=== PATIENT | male | born 1955 | race Caucasian/White ===

== ENCOUNTER → 2016-04-09 | Outpatient (CLI) | payer OTHER ==
[~2016-04-09] MED LIST: ACET325T96 PO; APR50 PO; ASPI-435 PO; ASPI81TA28 PO; ATOR-22 PO; ATV/1 PO; ATV/2 PO; BACL1TAB PO; BISA10SU3 PR; CALC500C3 PO; CARB10TA5 PO; CARV12.52 PO; CARV25TA2 PO; CLON0.5T3 PO; CYCL10TA6 PO; CYM/30 PO; DOCU-94 PO; DULO60CA44 PO; DXM/4 PO; FURO-85 PO; GABA-113 PO; HYDR25TA4 PO; IPRASOL4 INH; LACO200T PO; LAMO200T35 PO; LAMO25TA PO; LEVE500T13 PO; LEVO-459 PO; LEVO25TA5 PO; LISI40TA PO; MAGNSUS5 PO; MENT4GEL TOP; MOML PO; NRN300 PO; ONDA4TAB46 PO; POTA10TA32 PO; QUET1TAB30 PO; QUET1TAB32 PO; QUET1TAB34 PO; SENN-65 PO; SENN8.6T94 PO; SODIENE PR; SYN25 PO; TAMS0.4C38 PO; TRAM-10 PO; WARF2TAB8 PO; WARF3TAB PO; WARF3TAB6 PO; WARF4TAB8 PO; WARF5TAB90 PO
[2016-04-09 09:22] LABS: INR 2.1 (0.9-1.1); PROTHROMBIN TIME (PATIENT) 22.8 SECONDS (9.0-12.0)
== END ==
LOC: C.LABUPBEA 08:43
PROVIDERS: ATTEND Family Medicine
DX: I63.50 Cerebral infarction due to unspecified occlusion or stenosis of unspecified cerebral artery (principal)

== ENCOUNTER → 2016-04-17 | Outpatient (CLI) | payer OTHER ==
[~2016-04-17] MED LIST changes: +CARB-157 PO; -CARB10TA5 PO; -DXM/4 PO; -LAMO200T35 PO; +LAMO200T38 PO; -LEVO-459 PO
[2016-04-17 10:11] LABS: INR 2.9 (0.9-1.1)
--- NOTE | 2016-04-18 09:57 | CODING QUERY NO DIAGNOSIS ---
TREATMENT RENDERED WITHOUT A DIAGNOSIS 53 To promote full compliance with coding requirements relating to patient care, physician participation is requested in all cases of icebox worker uncertainty. Please assist us with providing a diagnosis/symptom for the test(s) below: A diagnosis/symptom was not documented on your Order. A valid diagnosis/symptom is required to bill all insurances. Please remember that we are unable to code a diagnosis of rule out, probable, possible, questionable, or suspected. DOS 04/17/16 Tests that require a diagnosis: * PT/INR DIAGNOSIS: *ON YOUR ORDER YOU HAVE DX CODE I63.5, THAT IS AN INVALID CODE, PLEASE ADD CORRECT DX CODE Provider Signature: Date: Thank you Rema Miranda Health Information Management Once completed, please kindly fax back to [phone] For questions please call [phone]
== END ==
LOC: C.LABUPBEA 09:08
PROVIDERS: ATTEND Family Medicine
DX: I63.9 Cerebral infarction, unspecified (principal)

== ENCOUNTER → 2016-04-18 | Outpatient (CLI) | payer OTHER ==
[~2016-04-18] MED LIST changes: -CALC500C3 PO; -CARV25TA2 PO; -CYCL10TA6 PO; -CYM/30 PO; -GABA-113 PO; -IPRASOL4 INH; -LEVO25TA5 PO; -MENT4GEL TOP; -ONDA4TAB46 PO; -POTA10TA32 PO; -SENN8.6T94 PO
[2016-04-18 10:38] LABS: BLOOD UREA NITROGEN 15 mg/dl (7-18); BUN/CREATININE RATIO 9.9 (10-20); CALCIUM 8.7 mg/dl (8.5-10.1); CARBON DIOXIDE 32 mmol/L (21-32); CHLORIDE 100 mmol/L (98-107); GLUCOSE 91 mg/dl (70-99); MAGNESIUM 2.1 mg/dl (1.8-2.4); POTASSIUM 3.2 mmol/L (3.5-5.1); SODIUM 141 mmol/L (136-145)
== END ==
LOC: C.LABUPBEA 09:39
PROVIDERS: ATTEND Family Medicine
DX: I10 Essential (primary) hypertension (principal); G89.4 Chronic pain syndrome

== ENCOUNTER → 2016-04-27 | Outpatient (CLI) | payer OTHER ==
[~2016-04-27] MED LIST changes: +CALC500C3 PO; +CARV25TA2 PO; +CYCL10TA6 PO; +CYM/30 PO; +GABA-113 PO; +IPRASOL4 INH; +LEVO25TA5 PO; +MENT4GEL TOP; +ONDA4TAB46 PO; +POTA10TA32 PO; +SENN8.6T94 PO
[2016-04-27 08:57] LABS: INR 1.2 (0.9-1.1); PROTHROMBIN TIME (PATIENT) 12.6 SECONDS (9.0-12.0)
== END ==
LOC: C.LABUPBEA 08:12
PROVIDERS: ATTEND Family Medicine
DX: I63.50 Cerebral infarction due to unspecified occlusion or stenosis of unspecified cerebral artery (principal)

== ENCOUNTER → 2016-04-29 | Outpatient (CLI) | payer OTHER ==
[2016-04-29 09:06] LABS: INR 1.8 (0.9-1.1); PROTHROMBIN TIME (PATIENT) 20.2 SECONDS (9.0-12.0)
== END ==
LOC: C.LABUPBEA 12:46
PROVIDERS: ATTEND Family Medicine
DX: I63.50 Cerebral infarction due to unspecified occlusion or stenosis of unspecified cerebral artery (principal)

== ENCOUNTER → 2016-05-09 | Outpatient (CLI) | payer OTHER ==
[2016-05-09 08:29] LABS: INR 4.2 (0.9-1.1); PROTHROMBIN TIME (PATIENT) 47.2 SECONDS (9.0-12.0)
== END | disposition home or self-care (01) ==
LOC: C.LABUPBEA 08:00
PROVIDERS: ATTEND Family Medicine
DX: I63.50 Cerebral infarction due to unspecified occlusion or stenosis of unspecified cerebral artery (principal)

== ENCOUNTER 2016-05-11 20:42 | Observation (INO) | payer OTHER ==
[~2016-05-11] VITALS: Ht 165.1 cm; Wt 87.0 kg
[~2016-05-11 20:42] MED LIST changes: -ACET325T96 PO; -APR50 PO; -ASPI81TA28 PO; -ATOR-22 PO; -ATV/1 PO; -CALC500C3 PO; -CARB-157 PO; -CARV12.52 PO; -CARV25TA2 PO; -CLON0.5T3 PO; -CYCL10TA6 PO; -CYM/30 PO; -DOCU-94 PO; -DULO60CA44 PO; -FURO-85 PO; -GABA-113 PO; -HYDR25TA4 PO; -IPRASOL4 INH; -LACO200T PO; -LEVO25TA5 PO; -LISI40TA PO; -MAGNSUS5 PO; -MENT4GEL TOP; -MOML PO; -ONDA4TAB46 PO; -POTA10TA32 PO; -QUET1TAB30 PO; -QUET1TAB34 PO; -SENN-65 PO; -SENN8.6T94 PO; -TAMS0.4C38 PO; -TRAM-10 PO; -WARF2TAB8 PO; -WARF3TAB6 PO; -WARF5TAB90 PO
[2016-05-11] MEDS ORDERED: SODIUM CHLORIDE 0.9% 1000ML 1,000 ML IV SCH (20:56)
[2016-05-11] MEDS ORDERED: WARF5TAB90 PO (21:16)
[2016-05-11] MEDS ORDERED: QUET1TAB34 PO ×2 (21:20)
[2016-05-11 21:23] LABS: BASO % 0.6 %; BASO ABS # 0.03 K/uL (0-0.2); COMPLETE YES; EOS % 10.6 %; HEMATOCRIT 38.9 % (42-52); IG% 0.4 %; LYMPH % 25.9 %; LYMPH ABS # 1.36 K/uL (1.2-3.4); MEAN CELL VOLUME 92.8 fL (80-100); MEAN CORPUSCULAR HEMOGLOBIN 31.3 pg (25-34); MEAN CORPUSCULAR HGB CONC 33.7 g/dl (32-36); MEAN PLATELET VOLUME 10.2 fL (7.4-10.4); MONO % 12.5 %; PLATELET COUNT 246 K/uL (130-400); RED BLOOD COUNT 4.19 M/uL (4.7-6.1); WHITE BLOOD COUNT 5.26 K/uL (4.8-10.8)
[2016-05-11] MEDS ORDERED: ATV/1 PO ×2 (21:32)
[2016-05-11] MEDS ORDERED: MOML PO ×2 (21:32)
[2016-05-11] MEDS ORDERED: SODIENE PR ×2 (21:32)
[2016-05-11 21:47] LABS: INR 5.3 (0.9-1.1); PARTIAL THROMBOPLASTIN RATIO 2.4; PROTHROMBIN TIME (PATIENT) 60.5 SECONDS (9.0-12.0)
--- NOTE | 2016-05-11 21:50 | DIAGNOSTIC IMAGING REPORT ---
HEAD CT NONCONTRAST CT DOSE: 614.27 mGy.cm HISTORY: Mental status change Stroke TECHNIQUE: Multiaxial CT images of the head were performed without the use of intravenous contrast. Comparison: 02/27/2016 Findings: The paranasal sinuses and mastoid air cells are clear. Old right frontal infarct unchanged. Mild frontal atrophy unchanged. No acute intracranial hemorrhage. No midline shift. Mucous retention cysts of the right maxillary sinus. Impression: No acute intracranial abnormality. Old right frontal infarct. Electronically signed by: Peng Jim M.D. 05/11/2016 9:49 PM Dictated Date/Time: 05/11/2016 9:48 PM
[2016-05-11 22:11] LABS: BLOOD UREA NITROGEN 19 mg/dl (7-18); BUN/CREATININE RATIO 15.8 (10-20); CALCIUM 8.6 mg/dl (8.5-10.1); CARBON DIOXIDE 30 mmol/L (21-32); CHLORIDE 103 mmol/L (98-107); GLUCOSE 99 mg/dl (70-99); POTASSIUM 3.3 mmol/L (3.5-5.1); SODIUM 142 mmol/L (136-145)
[2016-05-11 22:14] LABS: CKMB/CK RATIO 0.7 (0-3.0)
[2016-05-11] MEDS ORDERED: FURO-85 PO ×2 (22:34)
[2016-05-11] MEDS ORDERED: MAGNSUS5 PO (22:36)
[2016-05-11] MEDS ORDERED: CARV12.52 PO ×2 (22:39)
[2016-05-11] MEDS ORDERED: SENN-65 PO ×2 (22:46)
--- NOTE | 2016-05-11 23:05 | DIAGNOSTIC IMAGING REPORT ---
CHEST ONE VIEW PORTABLE CLINICAL HISTORY: stroke mental status change COMPARISON STUDY: 02/27/2016 FINDINGS: Mild cardiomegaly. Mild congestive failure. Diaphragms are smooth. IMPRESSION: Mild congestive failure versus early pulmonary edema Electronically signed by: Peng Jim M.D. 05/11/2016 11:04 PM Dictated Date/Time: 05/11/2016 11:04 PM
[2016-05-11 23:16] LABS: URINE APPEARANCE CLEAR (CLEAR); URINE BILIRUBIN NEG (NEG); URINE COLOR YELLOW; URINE NITRITE NEG (NEG); URINE SPECIFIC GRAVITY 1.012 (1.000-1.030); UROBILINOGEN NEG (NEG); ZZURINE CULT IF INDIC CATH NO
[2016-05-11 23:24] LABS: BENZODIAZEPINE, URINE NEG (NEG); COCAINE,URINE NEG (NEG); PHENCYCLIDINE, URINE NEG (NEG)
[2016-05-11 23:35] LABS: MANUAL MICROSCOPIC REQUIRED? NO; REVIEW REQ? NO
[2016-05-12] VITALS (9 sets, daily range): BP systolic 129–169; BP diastolic 83–109; PULSE 56–72; TEMP 36.3–36.9; O2SAT 93–96; Ht 165.1 cm; Wt 87.0 kg
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
[2016-05-12] MEDS ORDERED: MoRPHine SULFATE 2 MG/ML CARP IV PRN (00:15)
[2016-05-12] MEDS ORDERED: POLYETHYLENE (MIRALAX) 17 GM PACK PO PRN (00:15)
[2016-05-12] MEDS ORDERED: MAGNESIUM HYDROXIDE SUSP 30 ML UDC PO PRN (00:15)
[2016-05-12] MEDS ORDERED: PHARMACIST DISCHARGE MED REC CONSULT PRN (00:15)
[2016-05-12] MEDS ORDERED: ONDANSETRON INJ 2 MG/ML 2 ML VIAL IV PRN (00:15)
[2016-05-12] MEDS ORDERED: ACETAMINOPHEN 325 MG TAB PO PRN (00:15)
[2016-05-12] MEDS ORDERED: ALUMINUM/MAGNESIUM/SIMETH (MAALOX MAX) 30 ML UDC PO PRN (00:15)
[2016-05-12] MEDS ORDERED: LORAZEPAM 1 MG TAB PO PRN (00:30)
--- NOTE | 2016-05-12 00:44 | EMERGENCY ROOM VISIT NOTE ---
History Report prepared by Carmen: Phong Carmona Under the Supervision of: Dr. Marci Humphries D.O. First contact with patient: 20:47 Chief Complaint: STROKE SYMPTOMS Stated Complaint: STROKE SX History of Present Illness The patient is a 60 year old male who presents to the Emergency Room after experiencing stroke-like symptoms. The patient states that he began to lose strength in his right arm at 1130 this morning, 9.5 hours prior to arrival. A few hours later, at 1300, the patient began to lose strength in his right leg as well. The patient was brought to the Emergency Department from [facility] via EMS. The staff at [facility] state that his symptoms just started 45 minutes ago. He has a history of stroke, and his previous stroke did affect his right side. The patient is on Coumadin as a blood thinner. He denies headache, change in vision, fevers, chest pain, shortness of breath, nausea, vomiting, diarrhea, pain with urination, and melena. Source of History: patient, [facility] notes Onset: 9.5 hours CHECK TOTALER Position: arm (right), leg (right) Quality: other (Weakeness) Associated Symptoms: No abdominal pain, No nausea, No vomiting Review of Systems See HPI for pertinent positives & negatives. A total of 10 systems reviewed and were otherwise negative. Past Medical & Surgical Medical Problems: (1) Altered mental status (2) Altered mental status (3) No Known Active Medical Problems (4) Pain of right side of body (5) Right arm weakness Family History Patient reports no known family medical history. Social History Smoking Status: Unknown if Ever Smoked Alcohol Use: occasionally Drug Use: marijuana Housing Status: [facility] Occupation Status: retired Current/Historical Medications Scheduled Aspirin (Aspirin 81), 325 MG PO DAILY Atorvastatin (Lipitor), 20 MG PO HS Bisacodyl (Dulcolax), 1 SUPP NV PRN UD Carbidopa/Levodopa (Sinemet 10MG/100MG), 1 TAB PO Q6H Carvedilol (Coreg), 12.5 MG PO Q12 Clonazepam (Klonopin), 0.5 MG PO HS Docusate Sodium (Colace), 1 CAP PO BID Duloxetine Hcl (Cymbalta), 60 MG PO BID Furosemide (Lasix), 20 MG PO DAILY Gabapentin (Gabapentin), 300 MG PO TID Hydralazine HCl (Hydralazine HCl), 50 MG PO QID Hydrochlorothiazide (Hctz), 25 MG PO DAILY Lacosamide (Vimpat), 200 MG PO BID Lamotrigine (Lamictal), 25 MG PO BID Lamotrigine (Lamictal), 200 MG PO BID Levetiracetam (Keppra), 500 MG PO BID Levothyroxine Sodium (Synthroid), 25 MCG PO DAILYBB Lisinopril (Zestril), 40 MG PO DAILY Magnesium Hydroxide (Milk Of Magnesia), 30 ML PO PRN UD Quetiapine Fumarate (Seroquel), 100 MG PO HS Quetiapine Fumarate (Seroquel), 25 MG PO BID Sennosides-Docusate Sodium (Senokot S), 2 TABS PO HS Tamsulosin Hcl (Flomax), 0.4 MG PO DAILY Warfarin Sodium (Coumadin), 5 MG PO HS Scheduled PRN Acetaminophen Tab (Tylenol), 650 MG PO Q6H PRN for Pain or Fever Lorazepam (Ativan), 1 MG PO Q8 PRN for Anxiety Sodium Phosphate/Biphosphate (Fleet Enema), 1 EA NV DAILY PRN for PER BOWEL PROTOCOL Allergies Coded Allergies: Hydromorphone (Verified Allergy, Unknown, Unknown, 02/27/16) Penicillins (Unverified Allergy, Unknown, UNKNOWN, 02/27/16) Aspirin (Unverified Adverse Reaction, Unknown, NAUSEA, 02/27/16) Physical Exam Vital Signs Date Time Temp Pulse Resp B/P Pulse Ox O2 Delivery O2 Flow Rate FiO2 05/11/16 23:56 65 16 141/91 95 Room Air 05/11/16 22:42 61 10 95 05/11/16 22:41 111/71 05/11/16 22:35 88/58 05/11/16 22:28 86/58 05/11/16 22:12 62 15 90 05/11/16 21:58 96/64 05/11/16 21:42 63 16 91 05/11/16 21:31 113/80 05/11/16 21:12 65 14 93 05/11/16 21:00 94 05/11/16 20:57 62 05/11/16 20:45 36.7 62 23 159/108 95 Room Air 05/11/16 20:43 159/108 Physical Exam GENERAL: Laying in bed, disheveled and non-toxic. EYE EXAM: normal conjunctiva, PERRL and EOM's intact OROPHARYNX: Poor dentition. No exudate, no erythema, lips, buccal mucosa, and tongue normal and mucous membranes are moist NECK: supple, no nuchal rigidity, no adenopathy, non-tender LUNGS: Clear to auscultation. Normal chest wall mechanics HEART: no murmurs, S1 normal and S2 normal ABDOMEN: abdomen soft, non-tender, normo-active bowel sounds, no masses, no rebound or guarding. BACK: Back is symmetrical on inspection and there is no deformity, no midline tenderness, no CVA tenderness. SKIN: no rashes and no bruising UPPER EXTREMITIES: upper extremities are grossly normal. LOWER EXTREMITIES: No pitting edema. NEURO EXAM: Patient is alert and oriented to person place, but not date. Flexion/extension of the left upper shoulder, wrist, and elbow are intact. 5/5 strength in right upper extremity. Unable to hold arm above her head, but able to flex and extend right elbow slightly. Right hand with contracture. Right lower extremity able to uncross legs with positive withdraw slightly to pain. Left lower extremity flexion/extension in the hip, knee, and ankle intact. Normal sensorium, cranial nerves II-XII grossly intact, normal speech. Medical Decision & Procedures ER Provider Diagnostic Interpretation: Xray results per the radiologist and my interpretation. Other results have been interpreted by the radiologist and reviewed by me. CHEST ONE VIEW PORTABLE CLINICAL HISTORY: stroke mental status change COMPARISON STUDY: 02/27/2016 FINDINGS: Mild cardiomegaly. Mild congestive failure. Diaphragms are smooth. IMPRESSION: Mild congestive failure versus early pulmonary edema Electronically signed by: Peng Jim M.D. 05/11/2016 11:04 PM Dictated Date/Time: 05/11/2016 11:[address] NONCONTRAST CT DOSE: 614.27 mGy.cm HISTORY: Mental status change Stroke TECHNIQUE: Multiaxial CT images of the head were performed without the use of intravenous contrast. Comparison: 02/27/2016 Findings: The paranasal sinuses and mastoid air cells are clear. Old right frontal infarct unchanged. Mild frontal atrophy unchanged. No acute intracranial hemorrhage. No midline shift. Mucous retention cysts of the right maxillary sinus. Impression: No acute intracranial abnormality. Old right frontal infarct. Electronically signed by: Peng Jim M.D. 05/11/2016 9:49 PM Dictated Date/Time: 05/11/2016 9:48 PM Laboratory Results 05/11/16 21:10 Red Blood Count 4.19, Mean Corpuscular Volume 92.8, Mean Corpuscular Hemoglobin 31.3, Mean Corpuscular Hemoglobin Concent 33.7, Mean Platelet Volume 10.2, Neutrophils (%) (Auto) 50.0, Lymphocytes (%) (Auto) 25.9, Monocytes (%) (Auto) 12.5, Eosinophils (%) (Auto) 10.6, Basophils (%) (Auto) 0.6, Neutrophils # (Auto ) 2.63, Lymphocytes # (Auto) 1.36, Monocytes # (Auto) 0.66, Eosinophils # (Auto ) 0.56, Basophils # (Auto) 0.03 05/11/16 21:10 Test 05/11/16 00:00 05/11/16 21:04 05/11/16 21:10 Urine Color YELLOW Urine Appearance CLEAR (CLEAR) Urine pH 7.0 (4.5-7.5) Urine Specific [place] 1.012 (1.000-1.030) Urine Protein NEG (NEG) Urine Glucose (UA) NEG (NEG) Urine Ketones NEG (NEG) Urine Occult Blood NEG (NEG) Urine Nitrite NEG (NEG) Urine Bilirubin NEG (NEG) Urine Urobilinogen NEG (NEG) Urine Leukocyte Esterase TRACE (NEG) Urine WBC (Auto) 1-5 /hpf (0-5) Urine RBC (Auto) 0-4 /hpf (0-4) Urine Hyaline Casts (Auto) 1-5 /lpf (0-5) Urine Epithelial Cells (Auto) 5-10 /lpf (0-5) Urine Bacteria (Auto) NEG (NEG) Urine Opiates Screen NEG (NEG) Urine Methadone, Qualitative NEG (NEG) Urine Barbiturates NEG (NEG) Urine Phencyclidine (PCP) Level NEG (NEG) Ur Amphetamine/Methamphetamine NEG (NEG) MDMA (Ecstasy) Screen NEG (NEG) Urine Benzodiazepines Screen NEG (NEG) Urine Cocaine Metabolite NEG (NEG) Urine Marijuana (THC) NEG (NEG) Bedside Glucose 97 mg/dl (70-99) White Blood Count 5.26 K/uL (4.8-10.8) Red Blood Count 4.19 M/uL (4.7-6.1) Hemoglobin 13.1 g/dL (14.0-18.0) Hematocrit 38.9 % (42-52) Mean Corpuscular Volume 92.8 fL (80-100) Mean Corpuscular Hemoglobin 31.3 pg (25-34) Mean Corpuscular Hemoglobin Concent 33.7 g/dl (32-36) Platelet Count 246 K/uL (130-400) Mean Platelet Volume 10.2 fL (7.4-10.4) Neutrophils (%) (Auto) 50.0 % Lymphocytes (%) (Auto) 25.9 % Monocytes (%) (Auto) 12.5 % Eosinophils (%) (Auto) 10.6 % Basophils (%) (Auto) 0.6 % Neutrophils # (Auto) 2.63 K/uL (1.4-6.5) Lymphocytes # (Auto) 1.36 K/uL (1.2-3.4) Monocytes # (Auto) 0.66 K/uL (0.11-0.59) Eosinophils # (Auto) 0.56 K/uL (0-0.5) Basophils # (Auto) 0.03 K/uL (0-0.2) RDW Standard Deviation 51.9 fL (36.4-46.3) RDW Coefficient of Variation 15.2 % (11.5-14.5) Immature Granulocyte % (Auto) 0.4 % Immature Granulocyte # (Auto) 0.02 K/uL (0.00-0.02) Prothrombin Time 60.5 SECONDS (9.0-12.0) Prothromb Time International Ratio 5.3 (0.9-1.1) Activated Partial Thromboplast Time 62.9 SECONDS (21.0-31.0) Partial Thromboplastin Ratio 2.4 Anion Gap 9.0 mmol/L (3-11) Est Creatinine Clear Calc Drug Dose 66.0 ml/min Estimated GFR () 74.7 Estimated GFR (Non- 64.4 BUN/Creatinine Ratio 15.8 (10-20) Calcium Level 8.6 mg/dl (8.5-10.1) Total Creatine Kinase 106 U/L (39-308) Creatine Kinase MB 0.7 ng/ml (0.5-3.6) Creatine Kinase MB Ratio 0.7 (0-3.0) Troponin I < 0.015 ng/ml (0-0.045) Laboratory results per my review. Medications Administered Medications (Trade) Dose Ordered Sig/Dede Route Start Time Stop Time Status Last Admin Dose Admin Sodium Chloride (Nss 1000ml) 1,000 ml @ 50 mls/hr Q20H IV 05/11/16 20:56 06/10/16 20:55 05/11/16 21:22 50 MLS/HR ECG Indication: altered mental status Rate (beats per minute): 63 Rhythm: normal sinus Findings: no ectopy, other (Normal [place]) ED Course ED COURSE: Vital signs were reviewed and showed Hypertensive The patients medical record was reviewed The above diagnostic studies were performed and reviewed. ED treatments and interventions as stated above. 2049: The patient was evaluated in room A3. A complete history and physical examination was performed. 2055: Ordered Sodium Chloride 1000 mL @ 50 mL/hr IV. 2145: I discussed the case with Dr. Herrera, he states that the patient is not a candidate for further neurologic therapy at this time. 2235: I discussed the case with Dr. Sutherland at this time, he will evaluate the patient for further treatment. 2244: I updated the patient at this time, his systolic blood pressure was in the 110's 2246: Upon reevaluation, the patient is agreeable to admission.I discussed my findings with the patient and he understands and agrees with the treatment plan. Based on the patients age, coexisting illnesses, exam and lab findings the decision to treat as an inpatient was made. The patient remained stable while under my care. The patient will be evaluated for further management. Medical Decision Differential diagnosis: Etiologies such as metabolic, infection, hypo/hyperglycemia, electrolyte abnormalities, cardiac sources, intracerebral event, toxicologic, neurologic, as well as others were entertained. Patient is a 60-year-old male who presents to the ER for possible stroke. He notes that his symptoms started around 11:30. Since then he has been unable to move his right upper extremity abd right lower extremity. He does have a history of previous strokes. Patient is taking Coumadin. On exam he does have an obvious deficit of his right upper and right lower extremity. He clearly states that this started around lunchtime. He notes that he can't move his right lower extremity but when his legs are crossed is able to uncross them. He does withdrawal to pain. CT head was negative. Labs show no significant leukocytosis or anemia. BMP along with troponin was negative. UA and tox was negative. INR was supratherapeutic at 5.3. Chest x-ray was unremarkable. Discussed the case with [facility] and they note that he is not a candidate for any intervention. Discussed case with internal medicine and was admitted for possible stroke. Consults Time Called: 2139 Consulting Physician: Dr. Herrera Returned Call: [phone] I discussed the case with Dr. Herrera, he states that the patient is not a candidate for further neurologic therapy at this time. Additional Consults: Time Called: [id number] Consulted Physician: Dr. Sutherland - [facility] [facility] Returned Call: [phone] Additional Comments: I discussed the case with Dr. Sutherland at this time, he will evaluate the patient for further treatment. Impression Primary Impression: Stroke Additional Impression: Hypokalemia Scribe Attestation The scribe's documentation has been prepared under my direction and personally reviewed by me in its entirety. I confirm that the note above accurately reflects all work, treatment, procedures, and medical decision making performed by me. Departure Information Dispostion Being Evaluated By Hospitalist Referrals Nadia Bowles (PCP) Patient Instructions My [facility] Problem Qualifiers Primary Impression: Stroke CVA mechanism: unspecified Qualified Codes: I63.9 - Cerebral infarction, unspecified
[2016-05-12] MEDS ORDERED: IV FLUIDS COMPLETED PRN (00:45)
[2016-05-12] MEDS: CARBIDOPA/LEVODOPA 10/100MG TAB PO SCH ×4 (04:58→23:39)
[2016-05-12] MEDS: LEVOTHYROXINE 25 MCG TAB PO SCH (04:58)
[2016-05-12] MEDS: D5NSS + 20MEQ KCL 1,000 ML IV SCH ×2 (04:59→11:49)
[2016-05-12 08:47] LABS: BASO % 0.5 %; BASO ABS # 0.03 K/uL (0-0.2); COMPLETE YES; EOS % 8.6 %; HEMATOCRIT 36.3 % (42-52); IG% 0.2 %; LYMPH % 17.6 %; LYMPH ABS # 1.12 K/uL (1.2-3.4); MEAN CELL VOLUME 91.9 fL (80-100); MEAN CORPUSCULAR HEMOGLOBIN 31.1 pg (25-34); MEAN CORPUSCULAR HGB CONC 33.9 g/dl (32-36); MEAN PLATELET VOLUME 9.7 fL (7.4-10.4); MONO % 7.9 %; NEUT % 65.2 %; PLATELET COUNT 225 K/uL (130-400); RED BLOOD COUNT 3.95 M/uL (4.7-6.1); WHITE BLOOD COUNT 6.36 K/uL (4.8-10.8)
[2016-05-12] MEDS: QUETIAPINE FUMARATE 25 MG TAB PO SCH ×2 (09:00→14:05)
[2016-05-12] MEDS: GABAPENTIN 300 MG CAP PO SCH ×3 (09:00→20:43)
[2016-05-12 09:22] LABS: BUN/CREATININE RATIO 12.7 (10-20); CALCIUM 8.1 mg/dl (8.5-10.1); CREATININE 1.2 mg/dl (0.60-1.40); MAGNESIUM 1.9 mg/dl (1.8-2.4); POTASSIUM 3.3 mmol/L (3.5-5.1)
--- NOTE | 2016-05-12 10:05 | DIAGNOSTIC IMAGING REPORT ---
Brain MRI WITHOUT CONTRAST HISTORY: Mental status change Stroke TECHNIQUE: Multiplanar multisequence MRI of the brain was performed without the use of contrast. COMPARISON STUDY: 02/28/2016 FINDINGS: There are no areas of restricted diffusion to suggest acute infarction. The midline structures are intact. The paranasal sinuses are clear. The mastoid air cells are clear. The ventricles and sulci are within normal limits for age. There is no mass, hematoma, midline shift. The major vascular flow-voids at the skull base are well maintained. Old frontal infarct. Mild chronic small vessel change. IMPRESSION: 1. No acute intracranial abnormality. 2. Old right frontal infarct. 3. Stable moderate chronic small vessel change. Electronically signed by: Peng Jim M.D. 05/12/2016 10:03 AM Dictated Date/Time: 05/12/2016 10:02 AM
[2016-05-12] MEDS ORDERED: POTASSIUM CHLORIDE 10 MEQ TABCR PO ONE (11:00)
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
[2016-05-12] MEDS: LEVETIRACETAM 500 MG TAB PO SCH ×2 (11:51→20:39)
[2016-05-12] MEDS: ASPIRIN 325 MG ECTAB PO SCH (11:52)
[2016-05-12] MEDS: TAMSULOSIN HCL 0.4 MG CAP PO SCH (11:52)
[2016-05-12] MEDS: LISINOPRIL 40 MG TAB PO SCH (11:52)
[2016-05-12] MEDS: DOCUSATE SODIUM 100 MG CAP PO SCH ×2 (11:53→20:37)
[2016-05-12] MEDS: FUROSEMIDE 20 MG TAB PO SCH (11:53)
[2016-05-12] MEDS: CARVEDILOL 12.5 MG TAB PO SCH ×2 (11:53→20:38)
[2016-05-12] MEDS: DULOXETINE HCL 60 MG CAP PO SCH ×2 (11:53→20:39)
[2016-05-12] MEDS: HYDROCHLOROTHIAZIDE 25 MG TAB PO SCH (11:53)
[2016-05-12] MEDS: LACOSAMIDE 50 MG TAB PO SCH ×2 (11:54→20:45)
--- NOTE | 2016-05-12 12:25 | Progress Note ---
Subjective Date of Service: May 12, 2016. Subjective Pt evaluation today including: conversation w/ patient, physical exam, chart review, lab review, review of studies, conversation w/ sap bw consultant, review of inpatient medication list Voiding: no voiding problems Reported the right arm pain, is not new, 6 out of 10 now, want to get to pain medications such as Dilaudid or marijuana for the pain, report don't want to eat lunch for now and want to go sleep, right side paralyzed and weakness is not new, Problem List Medical Problems: (1) Change in mental status Status: Acute (2) CVA (cerebral vascular accident) Status: Acute (3) Dehydration Status: Acute (4) Hand laceration Status: Acute (5) Headache Status: Acute (6) Hypokalemia Status: Acute (7) Idiopathic ischemic cerebrovascular accident (CVA) in adult Status: Acute (8) Pneumonia Status: Acute (9) Stroke Status: Acute Review of Systems Constitutional: + fatigue, + weakness, No chills, No fever, No weight loss Eyes: No worsening of vision ENT: No hearing loss Respiratory: No cough, No dyspnea at rest, No dyspnea on exertion, No hemoptysis, No problem reported, No see HPI, No shortness of breath, No sputum, No wheezing Cardiac: No PND, No chest pain, No claudication, No edema, No orthopnea, No palpitations, No problem reported, No see HPI Musculoskeletal: + joint pain, + muscle pain Male : No dysuria, No hematuria, No incontinence, No nocturia more than once/ night, No problem reported, No see HPI, No sexual dysfunction, No slowing stream , No urinary frequency Neurologic: + paralysis (right side paralyzed is not new) Psychiatric: No anhedonism, No anxiety, No depression symptoms, No insomnia, No problem reported, No see HPI, No substance abuse Skin: No bleeding, No color change, No itch, No new/changing skin lesions, No problem reported, No rash, No see HPI Objective Vital Signs Date Time Temp Pulse Resp B/P Pulse Ox O2 Delivery O2 Flow Rate FiO2 05/12/16 11:41 36.4 63 22 150/86 95 Room Air 05/12/16 08:10 94 Room Air 05/12/16 08:10 Room Air 05/12/16 07:19 36.9 61 18 136/85 94 05/12/16 04:00 96 Room Air 05/12/16 02:03 36.3 56 18 157/90 96 Room Air 05/12/16 01:20 69 16 114/64 96 05/12/16 00:53 69 16 114/64 96 Room Air 05/11/16 23:56 65 16 141/91 95 Room Air 05/11/16 22:42 61 10 95 05/11/16 22:41 111/71 05/11/16 22:35 88/58 05/11/16 22:28 86/58 05/11/16 22:12 62 15 90 05/11/16 21:58 96/64 05/11/16 21:42 63 16 91 05/11/16 21:31 113/80 05/11/16 21:12 65 14 93 05/11/16 21:00 94 05/11/16 20:57 62 05/11/16 20:45 36.7 62 23 159/108 95 Room Air 05/11/16 20:43 159/108 Physical Exam General Appearance: WD/WN, no apparent distress, + pertinent finding (chronic ill-looking, look older than his age, no acute distress) Eyes: normal inspection, PERRL, EOMI, sclerae normal ENT: normal ENT inspection, hearing grossly normal, pharynx normal Neck: supple, no adenopathy, thyroid normal, no JVD, no carotid bruits, trachea midline Respiratory/Chest: chest non-tender, normal breath sounds, no respiratory distress, no accessory muscle use, + decreased breath sounds Cardiovascular: regular rate, rhythm, no edema, no gallop, no JVD, no murmur Abdomen: normal bowel sounds, non tender, soft, no organomegaly, no pulsatile mass Extremities: normal inspection, no pedal edema, no calf tenderness, normal capillary refill, pelvis stable, + pertinent finding (right radial pulse 2+, right arm has no obvious swelling, no call mild tender, no color changes) Neurologic/Psychiatric: picture enlarger II-XII nml as tested, no motor/sensory deficits, + motor weakness (right side paralyzed, is not new low other extremities in left size) Skin: normal color, warm/dry, no rash Lymphatic: no adenopathy Laboratory Results Last 24 Hours Test 05/11/16 21:04 05/11/16 21:10 05/12/16 08:35 2/4/17 12:03 Bedside Glucose 97 mg/dl White Blood Count 5.26 K/uL 6.36 K/uL Red Blood Count 4.19 M/uL 3.95 M/uL Hemoglobin 13.1 g/dL 12.3 g/dL Hematocrit 38.9 % 36.3 % Mean Corpuscular Volume 92.8 fL 91.9 fL Mean Corpuscular Hemoglobin 31.3 pg 31.1 pg Mean Corpuscular Hemoglobin Concent 33.7 g/dl 33.9 g/dl Platelet Count 246 K/uL 225 K/uL Mean Platelet Volume 10.2 fL 9.7 fL Neutrophils (%) (Auto) 50.0 % 65.2 % Lymphocytes (%) (Auto) 25.9 % 17.6 % Monocytes (%) (Auto) 12.5 % 7.9 % Eosinophils (%) (Auto) 10.6 % 8.6 % Basophils (%) (Auto) 0.6 % 0.5 % Neutrophils # (Auto) 2.63 K/uL 4.15 K/uL Lymphocytes # (Auto) 1.36 K/uL 1.12 K/uL Monocytes # (Auto) 0.66 K/uL 0.50 K/uL Eosinophils # (Auto) 0.56 K/uL 0.55 K/uL Basophils # (Auto) 0.03 K/uL 0.03 K/uL RDW Standard Deviation 51.9 fL 50.9 fL RDW Coefficient of Variation 15.2 % 15.0 % Immature Granulocyte % (Auto) 0.4 % 0.2 % Immature Granulocyte # (Auto) 0.02 K/uL 0.01 K/uL Prothrombin Time 60.5 SECONDS Prothromb Time International Ratio 5.3 Activated Partial Thromboplast Time 62.9 SECONDS Partial Thromboplastin Ratio 2.4 Sodium Level 142 mmol/L 143 mmol/L Potassium Level 3.3 mmol/L 3.3 mmol/L Chloride Level 103 mmol/L 107 mmol/L Carbon Dioxide Level 30 mmol/L 28 mmol/L Anion Gap 9.0 mmol/L 8.0 mmol/L Blood Urea Nitrogen 19 mg/dl 15 mg/dl Creatinine 1.20 mg/dl 1.20 mg/dl Est Creatinine Clear Calc Drug Dose 66.0 ml/min 65.2 ml/min Estimated GFR () 74.7 74.7 Estimated GFR (Non- 64.4 64.4 BUN/Creatinine Ratio 15.8 12.7 Random Glucose 99 mg/dl 89 mg/dl Calcium Level 8.6 mg/dl 8.1 mg/dl Total Creatine Kinase 106 U/L Creatine Kinase MB 0.7 ng/ml Creatine Kinase MB Ratio 0.7 Troponin I < 0.015 ng/ml Hepatitis C Antibody Screen NEG Magnesium Level 1.9 mg/dl Assessment and Plan 60-year-old male with new focal deficits R sided weakness prior to admission, on May 11 2016 Now he complaining about right arm pain hx of of CVA with right hemiparesis, worsening R sided weakness prior to admission? I feel right sided weakness is in baseline per examination now Brain MRI has no acute CVA I don't believe he has acute CVA No recent cholesterol check, lab ordered for tomorrow morning continue current care, cont ASA and a Statin, we'll adjusted statin level if needed Right arm pain, chronic, there is no color changes no swelling Pulse was positive I don't believe we need to check Doppler ultrasound for venous thrombosis or artery disease for now PT OT evaluation and treatment, check total CK level hx of non-convulsive seizures, dementia, 2 recent admissions for encephalopathy related to infection and seizures. , Follow-up Lamictal level supratherapeutic INR, Hold Coumadin continue follow-up PT/INR HTN - pt is mildly hypotensive on admission, this morning was high, has restarted home blood pressure medicine CKD 2 - creatinine is at baseline - mild hypokalemia corrected History of DVTs - INR is therapeutic at 5.4 , will follow-up PT OT evaluation and treatment, planning to discharge back to group home tomorrow DNR/DNI - Coumadin prophylaxis 24 minutes Continued [facility] stay due to: home environment unsafe for pt Discharge planning: retirement facility
[2016-05-12] MEDS ORDERED: ATORVASTATIN 20 MG TAB PO SCH (21:00)
[2016-05-12] MEDS ORDERED: DOCUSATE SODIUM/SENNA 50/8.6MG TAB PO SCH (21:00)
[2016-05-12] MEDS ORDERED: CLONAZEPAM 0.5 MG TAB PO SCH (21:00)
[2016-05-12] MEDS ORDERED: QUETIAPINE FUMARATE 100 MG TAB PO SCH (21:00)
[2016-05-12] MEDS ORDERED: ATORVASTATIN 40 MG TAB PO SCH (21:00)
[2016-05-13] VITALS (8 sets, daily range): BP systolic 128–163; BP diastolic 83–101; PULSE 62–72; TEMP 36.6–36.7; O2SAT 91–94
[2016-05-13] MEDS: CARBIDOPA/LEVODOPA 10/100MG TAB PO SCH ×2 (05:37→11:26)
[2016-05-13] MEDS: LEVOTHYROXINE 25 MCG TAB PO SCH (05:38)
[2016-05-13 06:18] LABS: BASO % 0.7 %; BASO ABS # 0.04 K/uL (0-0.2); COMPLETE YES; EOS % 8.5 %; HEMATOCRIT 36.1 % (42-52); IG% 0.2 %; LYMPH % 24.6 %; LYMPH ABS # 1.48 K/uL (1.2-3.4); MEAN CELL VOLUME 92.1 fL (80-100); MEAN CORPUSCULAR HEMOGLOBIN 30.9 pg (25-34); MEAN CORPUSCULAR HGB CONC 33.5 g/dl (32-36); MEAN PLATELET VOLUME 10.1 fL (7.4-10.4); MONO % 9.3 %; NEUT % 56.7 %; PLATELET COUNT 227 K/uL (130-400); RED BLOOD COUNT 3.92 M/uL (4.7-6.1); WHITE BLOOD COUNT 6.01 K/uL (4.8-10.8)
[2016-05-13 06:45] LABS: CALCIUM 8.1 mg/dl (8.5-10.1); CREATININE 1.3 mg/dl (0.60-1.40)
[2016-05-13 06:48] LABS: CHOLESTEROL/HDL RATIO 3.7
[2016-05-13] MEDS ORDERED: POTASSIUM CHLORIDE 10 MEQ TABCR PO STA (07:05)
[2016-05-13 07:47] LABS: INR 5.1 (0.9-1.1); PROTHROMBIN TIME (PATIENT) 58.5 SECONDS (9.0-12.0)
[2016-05-13] MEDS: POTASSIUM CHLR 10 MEQ / WTR 10 MEQ in PREMIXED WATER 100 ML IV SCH ×3 (08:30→08:48)
[2016-05-13] MEDS: LISINOPRIL 40 MG TAB PO SCH (08:38)
[2016-05-13] MEDS: QUETIAPINE FUMARATE 25 MG TAB PO SCH (08:38)
[2016-05-13] MEDS: LEVETIRACETAM 500 MG TAB PO SCH (08:39)
[2016-05-13] MEDS: DOCUSATE SODIUM 100 MG CAP PO SCH (08:39)
[2016-05-13] MEDS: FUROSEMIDE 20 MG TAB PO SCH (08:39)
[2016-05-13] MEDS: HYDROCHLOROTHIAZIDE 25 MG TAB PO SCH (08:40)
[2016-05-13] MEDS: GABAPENTIN 300 MG CAP PO SCH (08:40)
[2016-05-13] MEDS: ASPIRIN 325 MG ECTAB PO SCH (08:41)
[2016-05-13] MEDS: DULOXETINE HCL 60 MG CAP PO SCH (08:42)
[2016-05-13] MEDS: CARVEDILOL 12.5 MG TAB PO SCH (08:42)
[2016-05-13] MEDS: LACOSAMIDE 50 MG TAB PO SCH (08:43)
[2016-05-13] MEDS: TAMSULOSIN HCL 0.4 MG CAP PO SCH (08:44)
--- NOTE | 2016-05-13 12:08 | Discharge Instructions ---
Discharge Instructions Admission Reason for Admission: Right Arm Weakness Discharge Discharge Diagnosis / Problem: right arm pain, chronic, has rule out acute CVA Discharge Goals Goal(s): Decrease discomfort, Improve function, Learn about illness Activity Recommendations Activity Level: Up Ad Rufina Therapies: Physical Therapy, Occupational Therapy Lifting Limitations: none Exercise/Sports Limitations: none . Additional Information Patient informed of condition: Yes Advance Directives: Yes DNR: Yes Level of Care: Skilled Communicable Disease: No Prognosis: Stable Oxygen at (LPM): no Singh Catheter: No Instructions / Follow-Up Instructions / Follow-Up you have new possible Right sided weakness prior to admission, on May 11 2016 you have history of of CVA with right hemiparesis, Brain MRI was done , has no acute CVA you have right arm pain, which is chronic, you have the pain before, I recommend Tylenol as needed for pain you ahve supratherapeutic INR, today is 5.1, you need to stop coumadin, check PT/INR on Saturday, and RN to call MD to restart coumadin you potassium is low, you need to be on potassium rich diet - you need to follow up with your primary care physician in 1 week, - take medication as instructed, never overdose or any misuse, or take with alcohol, because misuse of medicine may cause organ damage or , call your primary care physician if have questions of medicaitons. - call your primary care physician OR go to local emergency room if has any fever/chill, chest pain, shortness of breathing, nausea/vomiting/abdominal pain , facial droop/slurry speech/local weakness, or if has any questions. - fall precaution - diet as instructed - you should understand that it is important to follow up the above instruction , and "not following the above instruction" may cause delayed or missed care of your medical conditions which may cause permanent organ damage and even . Current Hospital Diet Patient's current hospital diet: AHA Diet (Heart Healthy) Discharge Diet Recommended Diet: AHA Diet (Heart Healthy) Pending Studies Studies pending at discharge: no Physician Orders On Transfer POLST Discussion: without POLST completion Laboratory Results Lipid Panel Test 05/13/16 05:45 Range/Units Triglycerides Level 227 H 0-150 mg/dl Cholesterol Level 166 0-200 mg/dl HDL Cholesterol 45 mg/dl Cholesterol/HDL Ratio 3.7 LDL Cholesterol, Calculated 76 mg/dl Medical Emergencies . Who to Call and When: Medical Emergencies: If at any time you feel your situation is an emergency, please call 911 immediately. . Non-Emergent Contact Non-Emergency issues call your: Primary Care Provider . . "Provider Documentation" section prepared by Jayant Jackson. Core Measure Problem Core Measures: None
[2016-05-13] MEDS ORDERED: POTASSIUM CHLORIDE PWD 20 MEQ PACK PO STA (12:09)
--- NOTE | 2016-05-13 12:23 | Discharge Summary ---
Discharge Summary Admission Date: May 12, 2016 at 00:17 Discharge Date: May 13, 2016 [facility] Principal Diagnosis: right sided weakness prior to admission, has rule out CVA Problems/Secondary Diagnoses: history of of CVA with right hemiparesis, right arm pain, which is chronic, supratherapeutic INR, today is 5.1, Consultations: Neurologist Medication Reconciliation Continued Medications: Acetaminophen Tab (Tylenol) 325 Mg Tab 650 MG PO Q6H PRN for Pain or Fever, TAB NEEDED FOR MILD PAIN OR ELEVATED TEMPERATURE GREATER THAN 101 F. DO NOT EXCEED 3 GM APAP/24 HOURS Aspirin (Aspirin 81) 81 Mg Tab 325 MG PO DAILY for 30 Days Atorvastatin (Lipitor) 20 Mg Tab 20 MG PO HS Bisacodyl (Dulcolax) 10 Mg Sup 1 SUPP MT PRN UD, SUP Carbidopa/Levodopa (Sinemet 10MG/100MG) Tab 1 TAB PO Q6H Carvedilol (Coreg) 12.5 Mg Tab 12.5 MG PO Q12 HOLD THIS MEDICATION FOR APICAL HEART RATE LESS THAN 50 Clonazepam (Klonopin) 0.5 Mg Tab 0.5 MG PO HS, TAB Docusate Sodium (Colace) 100 Mg Cap 1 CAP PO BID for 15 Days, #30 CAP Duloxetine Hcl (Cymbalta) 60 Mg Cap 60 MG PO BID, CAP Furosemide (Lasix) 20 Mg Tab 20 MG PO DAILY, TAB Gabapentin (Gabapentin) 300 Mg Cap 300 MG PO TID for 30 Days, #90 CAP Hydralazine HCl (Hydralazine HCl) 50 Mg Tab 50 MG PO QID Hydrochlorothiazide (Hctz) 25 Mg Tab 25 MG PO DAILY, TAB Lacosamide (Vimpat) 200 Mg Tab 200 MG PO BID Lamotrigine (Lamictal) 25 Mg Tab 25 MG PO BID, #60 TAB Lamotrigine (Lamictal) 200 Mg Tab 200 MG PO BID, #60 TAB Levetiracetam (Keppra) 500 Mg Tab 500 MG PO BID, TAB Levothyroxine Sodium (Synthroid) 25 Mcg Tab 25 MCG PO DAILYBB for 30 Days, #30 TAB Lisinopril (Zestril) 40 Mg Tab 40 MG PO DAILY, TAB Lorazepam (Ativan) 1 Mg Tab 1 MG PO Q8 PRN for Anxiety, TAB Magnesium Hydroxide (Milk Of Magnesia) 30 Ml Susp 30 ML PO PRN UD, ML Quetiapine Fumarate (Seroquel) 100 Mg Tab 100 MG PO HS, TAB Quetiapine Fumarate (Seroquel) 25 Mg Tab 25 MG PO BID, TAB Sennosides-Docusate Sodium (Senokot S) 1 Tab Tab 2 TABS PO HS, TAB Sodium Phosphate/Biphosphate (Fleet Enema) Emmie 1 EA MT DAILY PRN for PER BOWEL PROTOCOL, BTL Tamsulosin Hcl (Flomax) 0.4 Mg Cap 0.4 MG PO DAILY, CAP Discontinued Medications: Warfarin Sodium (Coumadin) 5 Mg Tab 5 MG PO HS, TAB Discharge Exam Doing okay, right arm pain is not same, 5 out of 10, which is a chronic, no swelling and color changes Review of Systems: Constitutional: No chills, No fatigue, No fever, No problem reported, No sweats, No weakness, No weight loss Eyes: No diplopia, No discharge, No eye pain, No problem reported, No redness, No worsening of vision ENT: No dental problems, No hearing loss, No nasal symptoms, No problem reported, No sore throat, No tinnitus, No trouble swallowing, No unusual epistaxis Respiratory: + cough (occasional), No dyspnea at rest, No dyspnea on exertion, No hemoptysis, No problem reported, No shortness of breath, No sputum , No wheezing Cardiovascular: No PND, No chest pain, No claudication, No edema, No orthopnea, No palpitations, No problem reported Abdomen: No GI bleeding, No constipation, No diarrhea, No nausea, No pain, No problem reported, No vomiting Musculoskeletal: + muscle pain Genitourinary - Male: No dysuria, No hematuria, No impotence, No lesions, No penile discharge, No problem reported, No urinary frequency, No urinary hesitancy, No urinary incontinence, No urinary retention, No urinary urgency Neurologic: No balance problems, No memory loss, No numbness/tingling, No paralysis, No problem reported, No vertigo, No weakness Psychiatric: No anhedonism, No anxiety, No depression symptoms, No insomnia , No problem reported, No substance abuse Endocrine: No excessive thirst, No excessive urination, No fatigue, No problem reported Integumentary: No bleeding, No color change, No itch, No new/changing skin lesions, No problem reported, No rash Physical Exam: General Appearance: WD/WN, + pertinent finding (looks in his baseline) Eyes: normal inspection, PERRL, EOMI ENT: normal ENT inspection, hearing grossly normal Neck: supple, no adenopathy Respiratory/Chest: chest non-tender, normal breath sounds, no respiratory distress, + decreased breath sounds Cardiovascular: regular rate, rhythm, no edema, no gallop Abdomen / GI: normal bowel sounds, non tender, soft, no organomegaly, no pulsatile mass Extremities: normal inspection 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 I feel right sided weakness is in baseline per examination Brain MRI has no acute CVA I don't believe he has acute CVA Fast lipid panel checked, total cholesterol around 170 LDL less than 100, the new current dose of stenting continue current care, cont ASA Right arm pain, chronic, there is no color changes no swelling Pulse was positive I don't believe we need to check Doppler ultrasound for venous thrombosis or artery disease for now PT OT evaluation and treatment, check total CK level which was normal, Continue Tylenol as needed hx of non-convulsive seizures, dementia, 2 recent admissions for encephalopathy related to infection and seizures. , Lamictal level was sent still pending, Follow-up Lamictal level supratherapeutic INR, Hold Coumadin continue follow-up PT/INR Today's INR still 5.1, stop Coumadin, recheck PT/INR in 2 days, has ordered to have nurse to call M.D. to restart according to the PT/INR level HTN -resume home medication CKD 2 - creatinine is at baseline - mild hypokalemia corrected History of DVTs - INR is hyper- , will follow-up DNR/DNI - Coumadin prophylaxis Instructions / Follow-Up you have new possible Right sided weakness prior to admission, on May 11 2016 you have history of of CVA with right hemiparesis, Brain MRI was done , has no acute CVA you have right arm pain, which is chronic, you have the pain before, I recommend Tylenol as needed for pain you ahve supratherapeutic INR, today is 5.1, you need to stop coumadin, check PT/INR on Saturday, and RN to call MD to restart coumadin you potassium is low, you need to be on potassium rich diet - you need to follow up with your primary care physician in 1 week, - take medication as instructed, never overdose or any misuse, or take with alcohol, because misuse of medicine may cause organ damage or , call your primary care physician if have questions of medicaitons. - call your primary care physician OR go to local emergency room if has any fever/chill, chest pain, shortness of breathing, nausea/vomiting/abdominal pain , facial droop/slurry speech/local weakness, or if has any questions. - fall precaution - diet as instructed - you should understand that it is important to follow up the above instruction , and "not following the above instruction" may cause delayed or missed care of your medical conditions which may cause permanent organ damage and even . Total Time Spent: Greater than 30 minutes This includes examination of the patient, discharge planning, medication reconciliation, and communication with other providers. Discharge Instructions Please refer to the electronic Patient Visit Report (Discharge Instructions) for additional information. Additional Copies To Lavelle Bowles
[2017-01-08] MEDS ORDERED: QUET1TAB30 PO ×3 (15:32→21:24)
[2017-01-08] MEDS ORDERED: HYDR25TA4 PO ×2 (15:36)
[2017-01-08] MEDS ORDERED: DOCU-94 PO ×2 (21:22)
[2017-01-08] MEDS ORDERED: BISA10SU3 PR ×2 (21:32)
[2017-01-08] MEDS ORDERED: APR50 PO ×2 (22:34)
[2017-01-08] MEDS ORDERED: LISI40TA PO ×2 (22:35)
[2017-01-08] MEDS ORDERED: ATOR-22 PO ×2 (22:38)
[2017-01-08] MEDS ORDERED: CLON0.5T3 PO ×2 (22:39)
[2017-01-08] MEDS ORDERED: DULO60CA44 PO ×2 (22:42)
[2017-01-08] MEDS ORDERED: LACO200T PO ×2 (22:44)
[2017-01-08] MEDS ORDERED: CARB-157 PO ×2 (22:44)
[2017-01-08] MEDS ORDERED: TAMS0.4C38 PO ×2 (22:46)
[2017-01-08] MEDS ORDERED: ACET325T96 PO ×2 (22:46)
== END 2016-05-13 13:50 ==
LOC: ENRESERVTM → ENRESERVDT → EDBD 20:42 → C.EDA 20:43 → C.2E 05-12 00:17
PROVIDERS: ADMIT Internal Medicine; ATTEND Hospitalist
DX: R53.1 Weakness (principal); F12.10 Cannabis abuse, uncomplicated; N18.3 Chronic kidney disease, stage 3 (moderate); I12.9 Hypertensive chronic kidney disease with stage 1 through stage 4 chronic kidney disease, or unspecified chronic kidney disease; G25.81 Restless legs syndrome; E87.6 Hypokalemia; I69.351 Hemiplegia and hemiparesis following cerebral infarction affecting right dominant side; E78.5 Hyperlipidemia, unspecified; G40.909 Epilepsy, unspecified, not intractable, without status epilepticus; N40.0 Benign prostatic hyperplasia without lower urinary tract symptoms; F03.90 Unspecified dementia, unspecified severity, without behavioral disturbance, psychotic disturbance, mood disturbance, and anxiety; Z66 Do not resuscitate; Z87.891 Personal history of nicotine dependence; Z86.718 Personal history of other venous thrombosis and embolism; Z79.82 Long term (current) use of aspirin; Z88.0 Allergy status to penicillin; Z79.01 Long term (current) use of anticoagulants; Z87.01 Personal history of pneumonia (recurrent); Z82.3 Family history of stroke; Z82.49 Family history of ischemic heart disease and other diseases of the circulatory system

== ENCOUNTER → 2016-05-15 | Outpatient (CLI) | payer OTHER ==
[~2016-05-15] MED LIST changes: +ACET325T96 PO; +APR50 PO; +ASPI81TA28 PO; +ATOR-22 PO; +ATV/1 PO; +CALC500C3 PO; +CARB-157 PO; +CARV12.52 PO; +CARV25TA2 PO; +CLON0.5T3 PO; +CYCL10TA6 PO; +CYM/30 PO; +DOCU-94 PO; +DULO60CA44 PO; +FURO-85 PO; +GABA-113 PO; +HYDR25TA4 PO; +IPRASOL4 INH; +LACO200T PO; +LEVO25TA5 PO; +LISI40TA PO; +MAGNSUS5 PO; +MENT4GEL TOP; +MOML PO; +ONDA4TAB46 PO; +POTA10TA32 PO; +QUET1TAB30 PO; +QUET1TAB34 PO; +SENN-65 PO; +SENN8.6T94 PO; +TAMS0.4C38 PO; +TRAM-10 PO; +WARF2TAB8 PO; +WARF3TAB6 PO; +WARF5TAB90 PO
[2016-05-15 10:02] LABS: BLOOD UREA NITROGEN 15 mg/dl (7-18); BUN/CREATININE RATIO 10.9 (10-20); CALCIUM 8.6 mg/dl (8.5-10.1); CARBON DIOXIDE 29 mmol/L (21-32); CHLORIDE 104 mmol/L (98-107); GLUCOSE 80 mg/dl (70-99); MAGNESIUM 2.2 mg/dl (1.8-2.4); POTASSIUM 3.2 mmol/L (3.5-5.1); SODIUM 141 mmol/L (136-145)
[2016-05-15 10:05] LABS: INR 2.6 (0.9-1.1); PROTHROMBIN TIME (PATIENT) 28.8 SECONDS (9.0-12.0)
== END ==
LOC: C.LABUPBEA 09:38
PROVIDERS: ATTEND Family Medicine
DX: K52.9 Noninfective gastroenteritis and colitis, unspecified (principal); E61.2 Magnesium deficiency

== ENCOUNTER → 2016-05-18 | Outpatient (CLI) | payer OTHER ==
[~2016-05-18] MED LIST changes: -ATV/2 PO; -BACL1TAB PO; -MAGNSUS5 PO; -QUET1TAB32 PO; -WARF4TAB8 PO; -WARF5TAB90 PO
[2016-05-18 09:35] LABS: INR 1.7 (0.9-1.1); PROTHROMBIN TIME (PATIENT) 18.6 SECONDS (9.0-12.0)
== END ==
LOC: C.LABUPBEA 08:52
PROVIDERS: ATTEND Family Medicine
DX: I10 Essential (primary) hypertension (principal)

== ENCOUNTER → 2016-05-24 | Outpatient (CLI) | payer OTHER ==
[2016-05-24 09:35] LABS: INR 1.7 (0.9-1.1); PROTHROMBIN TIME (PATIENT) 18.1 SECONDS (9.0-12.0)
== END ==
LOC: C.LABUPBEA 09:08
PROVIDERS: ATTEND Family Medicine
DX: I63.50 Cerebral infarction due to unspecified occlusion or stenosis of unspecified cerebral artery (principal)

== ENCOUNTER → 2016-05-25 | Outpatient (CLI) | payer OTHER ==
[2016-05-25 09:31] LABS: URINE APPEARANCE CLOUDY (CLEAR); URINE BILIRUBIN NEG (NEG); URINE COLOR DK YELLOW; URINE EPITHELIAL CELL AUTO 20-30 /lpf (0-5); URINE NITRITE NEG (NEG); URINE SPECIFIC GRAVITY 1.017 (1.000-1.030); UROBILINOGEN NEG (NEG)
[2016-05-25 09:40] LABS: MANUAL MICROSCOPIC REQUIRED? NO; REVIEW REQ? YES
[2016-05-25 09:54] LABS: URINE PATH CASTS 0-3 GRANULAR CASTS /lpf (0)
== END | disposition home or self-care (01) ==
LOC: C.LABUPBEA 07:49
PROVIDERS: ATTEND Family Medicine
DX: R30.0 Dysuria (principal)

== ENCOUNTER → 2016-05-28 | Outpatient (CLI) | payer OTHER ==
[2016-05-28 12:14] LABS: URINE APPEARANCE CLEAR (CLEAR); URINE BILIRUBIN NEG (NEG); URINE COLOR YELLOW; URINE EPITHELIAL CELL AUTO >30 /lpf (0-5); URINE NITRITE NEG (NEG); URINE SPECIFIC GRAVITY 1.013 (1.000-1.030); UROBILINOGEN NEG (NEG)
[2016-05-28 12:20] LABS: MANUAL MICROSCOPIC REQUIRED? NO; REVIEW REQ? YES
== END ==
LOC: C.LABUPBEA 09:06
PROVIDERS: ATTEND Family Medicine
DX: R41.0 Disorientation, unspecified (principal)

== ENCOUNTER → 2016-05-29 | Outpatient (CLI) | payer OTHER ==
[2016-05-29 10:07] LABS: INR 4.8 (0.9-1.1); PROTHROMBIN TIME (PATIENT) 54.5 SECONDS (9.0-12.0)
--- NOTE | 2016-05-30 11:56 | CODING QUERY NO DIAGNOSIS ---
TREATMENT RENDERED WITHOUT A DIAGNOSIS 53 To promote full compliance with coding requirements relating to patient care, physician participation is requested in all cases of medical biller coder uncertainty. Please assist us with providing a diagnosis/symptom for the test(s) below: A diagnosis/symptom was not documented on your Order. A valid diagnosis/symptom is required to bill all insurances. Please remember that we are unable to code a diagnosis of rule out, probable, possible, questionable, or suspected. DOS 05/29/16 Tests that require a diagnosis: * PT/INR DIAGNOSIS: *ON YOUR ORDER YOU HAVE DX CODE I63.5, THAT IS AN INVALID CODE, CAN YOU PLEASE ADD THE CORRECT DX CODE Provider Signature: Date: Thank you Rema Miranda Health Information Management Once completed, please kindly fax back to [phone] For questions please call [phone]
== END ==
LOC: C.LABUPBEA 09:08
PROVIDERS: ATTEND Family Medicine
DX: Z00.00 Encounter for general adult medical examination without abnormal findings (principal)

== ENCOUNTER → 2016-06-01 | Outpatient (CLI) | payer OTHER ==
[2016-06-01 09:02] LABS: INR 2.6 (0.9-1.1); PROTHROMBIN TIME (PATIENT) 29.2 SECONDS (9.0-12.0)
== END ==
LOC: C.LABUPBEA 08:38
PROVIDERS: ATTEND Family Medicine
DX: I63.50 Cerebral infarction due to unspecified occlusion or stenosis of unspecified cerebral artery (principal)

== ENCOUNTER → 2016-06-04 | Outpatient (CLI) | payer OTHER ==
[2016-06-04 09:46] LABS: INR 1.5 (0.9-1.1); PROTHROMBIN TIME (PATIENT) 15.8 SECONDS (9.0-12.0)
== END ==
LOC: C.LABUPBEA 08:56
PROVIDERS: ATTEND Family Medicine
DX: I63.59 Cerebral infarction due to unspecified occlusion or stenosis of other cerebral artery (principal)

== ENCOUNTER → 2016-06-11 | Outpatient (CLI) | payer OTHER ==
[2016-06-11 10:36] LABS: INR 3.2 (0.9-1.1); PROTHROMBIN TIME (PATIENT) 35.4 SECONDS (9.0-12.0)
--- NOTE | 2016-06-15 08:58 | CODING QUERY NO DIAGNOSIS ---
TREATMENT RENDERED WITHOUT A DIAGNOSIS : 53 To promote full compliance with coding requirements relating to patient care, physician participation is requested in all cases of timber bucker uncertainty. Please assist us with providing a diagnosis/symptom for the test(s) below: A diagnosis/symptom was not documented on your Order. A valid diagnosis/symptom is required to bill all insurances. Please remember that we are unable to code a diagnosis of rule out, probable, possible, questionable, or suspected. Tests that require a diagnosis: DOS: 06/11/16 * PROTHROMBIN TIME PRO DIAGNOSIS: Provider Signature: Date: Thank you Abi Curiel Health Information Management Once completed, please kindly fax back to [phone] For questions please call [phone]
== END ==
LOC: C.LABUPBEA 10:11
PROVIDERS: ATTEND Family Medicine
DX: I63.50 Cerebral infarction due to unspecified occlusion or stenosis of unspecified cerebral artery (principal)

== ENCOUNTER → 2016-06-18 | Outpatient (CLI) | payer OTHER ==
[2016-06-18 09:07] LABS: INR 3.5 (0.9-1.1); PROTHROMBIN TIME (PATIENT) 39.2 SECONDS (9.0-12.0)
== END | disposition home or self-care (01) ==
LOC: C.LABCC 08:34
PROVIDERS: ATTEND Family Medicine
DX: I63.50 Cerebral infarction due to unspecified occlusion or stenosis of unspecified cerebral artery (principal)

== ENCOUNTER → 2016-06-25 | Outpatient (CLI) | payer OTHER ==
[~2016-06-25] MED LIST changes: -CARB-157 PO; +CARB10TA4 PO; +DXM/4 PO; +LEVO-459 PO
[2016-06-25 09:15] LABS: INR 1.8 (0.9-1.1); PROTHROMBIN TIME (PATIENT) 20.1 SECONDS (9.0-12.0)
== END | disposition home or self-care (01) ==
LOC: C.LABUPBEA 08:23
PROVIDERS: ATTEND Family Medicine
DX: I63.50 Cerebral infarction due to unspecified occlusion or stenosis of unspecified cerebral artery (principal)

== ENCOUNTER → 2016-07-02 | Outpatient (CLI) | payer OTHER ==
[~2016-07-02] MED LIST changes: +CARB-157 PO; -CARB10TA4 PO; -DXM/4 PO; -LEVO-459 PO
[2016-07-02 08:51] LABS: INR 1.6 (0.9-1.1); PROTHROMBIN TIME (PATIENT) 17.6 SECONDS (9.0-12.0)
== END ==
LOC: C.LABUPBEA 08:20
PROVIDERS: ATTEND Family Medicine
DX: I63.50 Cerebral infarction due to unspecified occlusion or stenosis of unspecified cerebral artery (principal)

== ENCOUNTER → 2016-07-20 | Outpatient (CLI) | payer OTHER ==
[~2016-07-20] MED LIST changes: -CARB-157 PO; +CARB10TA4 PO; +DXM/4 PO; +LEVO-459 PO
--- NOTE | 2016-07-20 11:07 | DIAGNOSTIC IMAGING REPORT ---
SCROTAL ULTRASOUND CLINICAL HISTORY: Scrotal mass. COMPARISON STUDY: None. TECHNIQUE: Grayscale and color and duplex Doppler sonography of the scrotum was performed. FINDINGS: The right testis measures 4.3 x 2.3 x 3 cm and left measures 4.1 x 2.1 x 2.7 cm. There is no solid renal lesion. There are bilateral dilated rete testes. Color flow is identified within each testis. There are bilateral varicoceles. A moderate-sized right hydrocele is present. IMPRESSION: 1. No solid testicular mass. Dilated bilateral rete testes. 2. Moderate size right hydrocele and small left hydrocele. 3. Bilateral varicoceles. 4. Slight asymmetric enlargement and heterogeneity of the right epididymis, a nonspecific finding. A mass lesion such as adenomatoid tumor would be difficult to exclude. Electronically signed by: Rich Ching M.D. 07/20/2016 11:05 AM Dictated Date/Time: 07/20/2016 10:57 AM
== END | disposition home or self-care (01) ==
LOC: C.ULTRBC 09:55
PROVIDERS: ATTEND Urology
DX: N50.9 Disorder of male genital organs, unspecified (principal)

== ENCOUNTER → 2016-07-23 | Outpatient (CLI) | payer OTHER ==
[2016-07-23 09:53] LABS: INR 1.9 (0.9-1.1); PROTHROMBIN TIME (PATIENT) 20.5 SECONDS (9.0-12.0)
== END ==
LOC: C.LABUPBEA 09:14
PROVIDERS: ATTEND Family Medicine
DX: I63.50 Cerebral infarction due to unspecified occlusion or stenosis of unspecified cerebral artery (principal)

== ENCOUNTER → 2016-08-06 | Outpatient (CLI) | payer OTHER ==
[2016-08-06 09:45] LABS: INR 2.4 (0.9-1.1); PROTHROMBIN TIME (PATIENT) 26.4 SECONDS (9.0-12.0)
== END ==
LOC: C.LABUPBEA 09:20
PROVIDERS: ATTEND Family Medicine
DX: I63.8 Other cerebral infarction (principal)

== ENCOUNTER → 2016-08-07 | Outpatient (CLI) | payer OTHER ==
[2016-08-07 10:25] LABS: INR 1.8 (0.9-1.1); PROTHROMBIN TIME (PATIENT) 19.3 SECONDS (9.0-12.0)
== END ==
LOC: C.LABUPBEA 09:16
PROVIDERS: ATTEND Family Medicine
DX: I63.59 Cerebral infarction due to unspecified occlusion or stenosis of other cerebral artery (principal)

== ENCOUNTER 2016-08-10 18:40 | Emergency (ER) | payer OTHER ==
[~2016-08-10 18:40] MED LIST changes: -ACET325T96 PO; -APR50 PO; -ASPI81TA28 PO; -ATOR-22 PO; -BISA10SU3 PR; -CALC500C3 PO; -CARB10TA4 PO; -CARV25TA2 PO; -CLON0.5T3 PO; -CYCL10TA6 PO; -CYM/30 PO; -DOCU-94 PO; -DULO60CA44 PO; -DXM/4 PO; -GABA-113 PO; -HYDR25TA4 PO; -IPRASOL4 INH; -LACO200T PO; -LEVO-459 PO; -LEVO25TA5 PO; -LISI40TA PO; -MENT4GEL TOP; -ONDA4TAB46 PO; -POTA10TA32 PO; -QUET1TAB30 PO; -SENN8.6T94 PO; -TAMS0.4C38 PO; -TRAM-10 PO; -WARF2TAB8 PO; -WARF3TAB PO; -WARF3TAB6 PO
[2016-08-10] MEDS ORDERED: SODIUM CHLORIDE 0.9% 1000ML 500 ML IV STA (19:01)
[2016-08-10 19:05] VITALS: TEMP 36.4
[2016-08-10 19:30] LABS: MANUAL MICROSCOPIC REQUIRED? NO; REVIEW REQ? NO; URINE APPEARANCE CLEAR (CLEAR); URINE BILIRUBIN NEG (NEG); URINE COLOR YELLOW; URINE NITRITE NEG (NEG); URINE SPECIFIC GRAVITY 1.014 (1.000-1.030); UROBILINOGEN NEG (NEG); ZZUR CULT IF INDIC CLEAN CATCH NO
[2016-08-10] MEDS ORDERED: WARF2TAB8 PO (19:31)
[2016-08-10] MEDS ORDERED: WARF3TAB6 PO (19:31)
[2016-08-10 19:41] LABS: BASO % 0.2 %; BASO ABS # 0.01 K/uL (0-0.2); COMPLETE YES; EOS % 9.5 %; HEMATOCRIT 35.9 % (42-52); IG% 0.5 %; LYMPH % 15.8 %; LYMPH ABS # 1.03 K/uL (1.2-3.4); MEAN CORPUSCULAR HEMOGLOBIN 32.7 pg (25-34); MEAN CORPUSCULAR HGB CONC 33.7 g/dl (32-36); MEAN PLATELET VOLUME 10.3 fL (7.4-10.4); MONO % 10.8 %; NEUT % 63.2 %; PLATELET COUNT 221 K/uL (130-400)
--- NOTE | 2016-08-10 19:53 | DIAGNOSTIC IMAGING REPORT ---
CT HEAD WITHOUT CONTRAST (CT) CLINICAL HISTORY: fall, seizure ACUTE CHANGE IN MENTAL STATUS COMPARISON STUDY: CT scan dated 05/11/2016 TECHNIQUE: Axial CT of the brain is performed from the vertex to the skull base. IV contrast was not administered for this examination. CT DOSE: 537.48 mGy.cm FINDINGS: No intra or extra-axial mass lesions are visualized. There is no CT evidence of acute cortical infarction. There is no evidence of midline shift. There is no acute hemorrhage. No calvarial fractures are visualized. There are patchy white matter hypodensities likely on a small vessel basis. There is an old right frontal lobe infarct. There is an old infarct within the left centrum semiovale. There is no evidence of pathologic ventricular dilatation. There is no evidence of acute sinusitis IMPRESSION: No acute intracranial findings Electronically signed by: Maverick Michaels M.D. 08/10/2016 7:51 PM Dictated Date/Time: 08/10/2016 7:50 PM
[2016-08-10 19:56] LABS: ALT/SGPT 16 U/L (12-78); AST/SGOT 13 U/L (15-37); BLOOD UREA NITROGEN 34 mg/dl (7-18); BUN/CREATININE RATIO 16.2 (10-20); CALCIUM 8.7 mg/dl (8.5-10.1); CARBON DIOXIDE 36 mmol/L (21-32); CHLORIDE 97 mmol/L (98-107); GLUCOSE 103 mg/dl (70-99); SODIUM 139 mmol/L (136-145)
[2016-08-10 19:59] LABS: ALB/GLOB RATIO 0.8 (0.9-2); ALKALINE PHOSPHATASE 102 U/L (45-117)
[2016-08-10] MEDS ORDERED: SODIUM CHLORIDE 0.9% 500ML 500 ML IV STA ×2 (20:04→21:17)
[2016-08-10] MEDS ORDERED: SODIUM CHLORIDE 0.9% 1000ML 1,000 ML IV STA (20:04)
--- NOTE | 2016-08-10 20:41 | DIAGNOSTIC IMAGING REPORT ---
CHEST ONE VIEW PORTABLE CLINICAL HISTORY: Altered mental status. Weakness. COMPARISON STUDY: May 11, 2016 FINDINGS: The heart is mildly enlarged. There is mild elevation of the interstitium. There is asymmetric airspace opacities visualized towards the right mid to lower lung zone. This could represent either pneumonia or asymmetric edema. There is no significant pleural fluid. Clinical and radiographic follow-up is recommended.[ IMPRESSION: 1. Mild cardiomegaly 2. Right mid and lower lung zone airspace opacities, likely secondary to either asymmetric edema, or a pneumonitis. Clinical and radiographic follow-up is recommended. Electronically signed by: Maverick Michaels M.D. 08/10/2016 8:40 PM Dictated Date/Time: 08/10/2016 8:39 PM
--- NOTE | 2016-08-10 20:42 | DIAGNOSTIC IMAGING REPORT ---
L-SPINE MIN 4 VIEWS ROUTINE CLINICAL HISTORY: Back pain status post trauma COMPARISON STUDY: No previous studies for comparison. FINDINGS: There is mild fecal retention. An IVC filter is visualized. There is a lumbar levoscoliosis. No acute fractures or subluxations are visualized. There are mild degenerative changes. IMPRESSION: No acute fractures or subluxations identified. Electronically signed by: Maverick Michaels M.D. 08/10/2016 8:41 PM Dictated Date/Time: 08/10/2016 8:40 PM
--- NOTE | 2016-08-10 20:46 | DIAGNOSTIC IMAGING REPORT ---
RIGHT WRIST MIN 3 VIEWS ROUTINE CLINICAL HISTORY: Right wrist pain status post trauma COMPARISON: None. DISCUSSION: The bones are osteopenic. No fractures or dislocations are visualized. IMPRESSION: No fractures identified. Electronically signed by: Maverick Michaels M.D. 08/10/2016 8:45 PM Dictated Date/Time: 08/10/2016 8:44 PM
--- NOTE | 2016-08-10 20:46 | DIAGNOSTIC IMAGING REPORT ---
RIGHT FOREARM 2 VIEWS ROUTINE CLINICAL HISTORY: Right forearm pain status post trauma. COMPARISON: None. DISCUSSION: The study is limited from a positioning standpoint. The bones are osteopenic. No fractures are visualized. IMPRESSION: No fractures identified. Electronically signed by: Maverick Michaels M.D. 08/10/2016 8:44 PM Dictated Date/Time: 08/10/2016 8:44 PM
--- NOTE | 2016-08-10 20:47 | DIAGNOSTIC IMAGING REPORT ---
RIGHT HAND MIN 3 VIEWS ROUTINE CLINICAL HISTORY: Right hand pain status post trauma COMPARISON: None. DISCUSSION: The study is markedly limited from a positioning standpoint as the patient's hand was contracted. The bones are osteopenic. No fractures are visualized. IMPRESSION: Markedly limited study secondary to a flexion contraction. No fractures are visualized. Electronically signed by: Maverick Michaels M.D. 08/10/2016 8:46 PM Dictated Date/Time: 08/10/2016 8:45 PM
--- NOTE | 2016-08-10 21:22 | EMERGENCY ROOM VISIT NOTE ---
History Report prepared by Carmen: Ashly Donato Under the Supervision of: Dr. Kelby Verma M.D. First contact with patient: 18:54 Stated Complaint: SEIZURE / FR [facility] History of Present Illness The patient is a 60 year old male who presents to the Emergency Room with complaints of a fall this morning. He comes from [facility] by EMS. The nursing staff notes that he fell this morning and had a 10-20 second seizure afterward. He had another seizure when EMS arrived. He has a history of seizure. He also has a history of CVA. He reports back pain and right arm pain. He denies any neck pain or abdominal pain. Source of History: patient, nursing staff Onset: this morning Position: other (global) Quality: other (fall) Timing: other (episodic) Associated Symptoms: + back pain, No abdominal pain, No neck pain Note: Pt reports arm pain. Review of Systems See HPI for pertinent positives & negatives. A total of 10 systems reviewed and were otherwise negative. Past Medical & Surgical Medical Problems: (1) Altered mental status (2) Altered mental status (3) No Known Active Medical Problems (4) Pain of right side of body (5) Right arm weakness Family History Patient reports no known family medical history. Social History Smoking Status: Former Smoker Alcohol Use: occasionally Drug Use: marijuana Housing Status: group home Occupation Status: retired Current/Historical Medications Scheduled Aspirin (Aspirin Ec), 81 MG PO DAILY Atorvastatin (Lipitor), 20 MG PO HS Bisacodyl (Dulcolax), 1 SUPP MA PRN UD Carbidopa/Levodopa (Sinemet 10MG/100MG), 1 TAB PO Q6H Carvedilol (Coreg), 12.5 MG PO Q12 Clonazepam (Klonopin), 0.5 MG PO HS Docusate Sodium (Colace), 1 CAP PO BID Duloxetine Hcl (Cymbalta), 60 MG PO BID Furosemide (Lasix), 20 MG PO DAILY Gabapentin (Gabapentin), 300 MG PO TID Hydralazine HCl (Hydralazine HCl), 50 MG PO QID Hydrochlorothiazide (Hctz), 25 MG PO DAILY Lacosamide (Vimpat), 200 MG PO BID Lamotrigine (Lamictal), 25 MG PO BID Lamotrigine (Lamictal), 200 MG PO BID Levetiracetam (Keppra), 500 MG PO BID Levothyroxine Sodium (Synthroid), 25 MCG PO DAILYBB Lisinopril (Zestril), 40 MG PO DAILY Quetiapine Fumarate (Seroquel), 100 MG PO HS Quetiapine Fumarate (Seroquel), 25 MG PO BID Sennosides-Docusate Sodium (Senokot S), 2 TABS PO BID Tamsulosin Hcl (Flomax), 0.4 MG PO DAILY Warfarin Sod (Jantoven), 2 MG PO Q2D Warfarin Sod (Jantoven), 3 MG PO Q2D Scheduled PRN Acetaminophen Tab (Tylenol), 650 MG PO Q6H PRN for Pain or Fever Lorazepam (Ativan), 1 MG PO Q8 PRN for Anxiety Tramadol (Ultram), 50 MG PO Q4H PRN for Pain Allergies Coded Allergies: Hydromorphone (Verified Allergy, Unknown, Unknown, 08/10/16) Penicillins (Unverified Allergy, Unknown, UNKNOWN, 08/10/16) Aspirin (Unverified Adverse Reaction, Unknown, NAUSEA, 02/27/16) Physical Exam Vital Signs Date Time Temp Pulse Resp B/P Pulse Ox O2 Delivery O2 Flow Rate FiO2 08/10/16 21:40 75 21 140/95 94 08/10/16 21:10 76 20 90 08/10/16 20:41 130/87 08/10/16 20:40 69 93 08/10/16 19:49 72 08/10/16 19:10 72 21 89 08/10/16 19:05 36.4 69 18 103/66 91 Room Air 08/10/16 18:54 103/66 Physical Exam GENERAL: Patient is in no acute distress. HEENT: No acute trauma, normocephalic atraumatic, mucous membranes moist, no nasal congestion, no scleral icterus. NECK: No stridor, no adenopathy, no meningismus, trachea is midline, nontender posterior C spine. LUNGS: Clear to auscultation bilaterally, no wheeze, no rhonchi, breath sounds equal. HEART: Without murmurs gallops or rubs, regular rate and rhythm. ABDOMEN: Soft, nontender, bowel sounds positive, no hernias, no peritonitis. BACK: Mildly tender over the lower lumbar spine, no bony stepoff. EXTREMITIES: Pain to palpation of the distal right forearm and the area of the right wrist and right lateral hand, no gross deformities, no pain with movement or palpation of the lower extremities. NEUROLOGIC: Right facial droop with speech deficit, right arm and right leg weakness, all consistent with previous CVA, awake and alert. SKIN: No rash, no jaundice, no diaphoresis. Medical Decision & Procedures ER Provider Diagnostic Interpretation: X ray results and stated below per my interpretation and radiologist interpretation. Other radiology results and stated below per my review and radiologist interpretation: L-SPINE MIN 4 VIEWS ROUTINE CLINICAL HISTORY: Back pain status post trauma COMPARISON STUDY: No previous studies for comparison. FINDINGS: There is mild fecal retention. An IVC filter is visualized. There is a lumbar levoscoliosis. No acute fractures or subluxations are visualized. There are mild degenerative changes. IMPRESSION: No acute fractures or subluxations identified. Electronically signed by: Maverick Michaels M.D. 08/10/2016 8:41 PM Dictated Date/Time: 08/10/2016 8:40 PM CHEST ONE VIEW PORTABLE CLINICAL HISTORY: Altered mental status. Weakness. COMPARISON STUDY: May 11, 2016 FINDINGS: The heart is mildly enlarged. There is mild elevation of the interstitium. There is asymmetric airspace opacities visualized towards the right mid to lower lung zone. This could represent either pneumonia or asymmetric edema. There is no significant pleural fluid. Clinical and radiographic follow-up is recommended.[ IMPRESSION: 1. Mild cardiomegaly 2. Right mid and lower lung zone airspace opacities, likely secondary to either asymmetric edema, or a pneumonitis. Clinical and radiographic follow-up is recommended. Electronically signed by: Maverick Michaels M.D. 08/10/2016 8:40 PM Dictated Date/Time: 08/10/2016 8:39 PM RIGHT FOREARM 2 VIEWS ROUTINE CLINICAL HISTORY: Right forearm pain status post trauma. COMPARISON: None. DISCUSSION: The study is limited from a positioning standpoint. The bones are osteopenic. No fractures are visualized. IMPRESSION: No fractures identified. Electronically signed by: Maverick Michaels M.D. 08/10/2016 8:44 PM Dictated Date/Time: 08/10/2016 8:44 PM RIGHT HAND MIN 3 VIEWS ROUTINE CLINICAL HISTORY: Right hand pain status post trauma COMPARISON: None. DISCUSSION: The study is markedly limited from a positioning standpoint as the patient's hand was contracted. The bones are osteopenic. No fractures are visualized. IMPRESSION: Markedly limited study secondary to a flexion contraction. No fractures are visualized. Electronically signed by: Maverick Michaels M.D. 08/10/2016 8:46 PM Dictated Date/Time: 08/10/2016 8:45 PM RIGHT WRIST MIN 3 VIEWS ROUTINE CLINICAL HISTORY: Right wrist pain status post trauma COMPARISON: None. DISCUSSION: The bones are osteopenic. No fractures or dislocations are visualized. IMPRESSION: No fractures identified. Electronically signed by: Maverick Michaels M.D. 08/10/2016 8:45 PM Dictated Date/Time: 08/10/2016 8:[address] HEAD WITHOUT CONTRAST (CT) CLINICAL HISTORY: fall, seizure ACUTE CHANGE IN MENTAL STATUS COMPARISON STUDY: CT scan dated 05/11/2016 TECHNIQUE: Axial CT of the brain is performed from the vertex to the skull base. IV contrast was not administered for this examination. CT DOSE: 537.48 mGy.cm FINDINGS: No intra or extra-axial mass lesions are visualized. There is no CT evidence of acute cortical infarction. There is no evidence of midline shift. There is no acute hemorrhage. No calvarial fractures are visualized. There are patchy white matter hypodensities likely on a small vessel basis. There is an old right frontal lobe infarct. There is an old infarct within the left centrum semiovale. There is no evidence of pathologic ventricular dilatation. There is no evidence of acute sinusitis IMPRESSION: No acute intracranial findings Electronically signed by: Maverick Michaels M.D. 08/10/2016 7:51 PM Dictated Date/Time: 08/10/2016 7:50 PM Laboratory Results 08/10/16 19:26 Red Blood Count 3.70, Mean Corpuscular Volume 97.0, Mean Corpuscular Hemoglobin 32.7, Mean Corpuscular Hemoglobin Concent 33.7, Mean Platelet Volume 10.3, Neutrophils (%) (Auto) 63.2, Lymphocytes (%) (Auto) 15.8, Monocytes (%) (Auto) 10.8, Eosinophils (%) (Auto) 9.5, Basophils (%) (Auto) 0.2, Neutrophils # (Auto ) 4.11, Lymphocytes # (Auto) 1.03, Monocytes # (Auto) 0.70, Eosinophils # (Auto ) 0.62, Basophils # (Auto) 0.01 08/10/16 19:26 Test 08/10/16 19:15 08/10/16 19:26 Urine Color YELLOW Urine Appearance CLEAR (CLEAR) Urine pH 5.0 (4.5-7.5) Urine Specific [place] 1.014 (1.000-1.030) Urine Protein NEG (NEG) Urine Glucose (UA) NEG (NEG) Urine Ketones NEG (NEG) Urine Occult Blood NEG (NEG) Urine Nitrite NEG (NEG) Urine Bilirubin NEG (NEG) Urine Urobilinogen NEG (NEG) Urine Leukocyte Esterase TRACE (NEG) Urine WBC (Auto) 1-5 /hpf (0-5) Urine RBC (Auto) 0-4 /hpf (0-4) Urine Hyaline Casts (Auto) 0 /lpf (0-5) Urine Epithelial Cells (Auto) 5-10 /lpf (0-5) Urine Bacteria (Auto) NEG (NEG) White Blood Count 6.50 K/uL (4.8-10.8) Red Blood Count 3.70 M/uL (4.7-6.1) Hemoglobin 12.1 g/dL (14.0-18.0) Hematocrit 35.9 % (42-52) Mean Corpuscular Volume 97.0 fL (80-100) Mean Corpuscular Hemoglobin 32.7 pg (25-34) Mean Corpuscular Hemoglobin Concent 33.7 g/dl (32-36) Platelet Count 221 K/uL (130-400) Mean Platelet Volume 10.3 fL (7.4-10.4) Neutrophils (%) (Auto) 63.2 % Lymphocytes (%) (Auto) 15.8 % Monocytes (%) (Auto) 10.8 % Eosinophils (%) (Auto) 9.5 % Basophils (%) (Auto) 0.2 % Neutrophils # (Auto) 4.11 K/uL (1.4-6.5) Lymphocytes # (Auto) 1.03 K/uL (1.2-3.4) Monocytes # (Auto) 0.70 K/uL (0.11-0.59) Eosinophils # (Auto) 0.62 K/uL (0-0.5) Basophils # (Auto) 0.01 K/uL (0-0.2) RDW Standard Deviation 53.9 fL (36.4-46.3) RDW Coefficient of Variation 15.0 % (11.5-14.5) Immature Granulocyte % (Auto) 0.5 % Immature Granulocyte # (Auto) 0.03 K/uL (0.00-0.02) Anion Gap 6.0 mmol/L (3-11) Estimated GFR () 38.0 Estimated GFR (Non- 32.7 BUN/Creatinine Ratio 16.2 (10-20) Calcium Level 8.7 mg/dl (8.5-10.1) Total Bilirubin 0.4 mg/dl (0.2-1) Aspartate Amino Transf (AST/SGOT) 13 U/L (15-37) Alanine Aminotransferase (ALT/SGPT) 16 U/L (12-78) Alkaline Phosphatase 102 U/L (45-117) Total Protein 7.2 gm/dl (6.4-8.2) Albumin 3.3 gm/dl (3.4-5.0) Globulin 3.9 gm/dl (2.5-4.0) Albumin/Globulin Ratio 0.8 (0.9-2) Laboratory results reviewed by me. Medications Administered Medications (Trade) Dose Ordered Sig/Dede Route Start Time Stop Time Status Last Admin Dose Admin Sodium Chloride 500 ml @ 999 mls/hr Q31M STAT IV 08/10/16 19:01 08/10/16 19:31 DC 08/10/16 19:01 999 MLS/HR Sodium Chloride 500 ml @ 999 mls/hr Q31M STAT IV 08/10/16 20:04 08/10/16 20:34 DC 08/10/16 20:04 999 MLS/HR Sodium Chloride (Nss 500ml) 500 ml @ 999 mls/hr Q31M STAT IV 08/10/16 21:17 08/10/16 21:47 DC 08/10/16 21:17 999 MLS/HR ECG Indication: other (fall) Rate (beats per minute): 72 Rhythm: normal sinus Findings: no acute ischemic change, no ectopy ED Course 1856: The patient was evaluated in room B12A. A complete history and physical exam was performed. 1900: NSS 500 ml @ 999 mls/hr IV. 2003: NSS 1000 ml @ 200 mls/hr IV, NSS 500 ml @ 999 mls/hr IV. 2116: NSS 500 ml @ 999 mls/hr IV. 2150: I reevaluated the patient. He is resting comfortably. I discussed results and discharge instructions: he verbalized understanding and agreement. The patient is ready for discharge. Medical Decision Differential diagnoses: right arm, wrist, or hand fracture, lumbar fracture, head trauma, infection, electrolyte imbalance, dehydration. There is no leukocytosis or concerning anemia. Renal panel testing shows a mildly low potassium, there was evidence for dehydration with a rise to the creatinine. No hepatitis. Urinalysis does not show evidence for infection. Chest x-ray shows no pneumonia or CHF by my review, the radiologist questioned some congestion of the right lung base, however, the patient has not had cough or fever or anything to suggest pneumonia. Brain CT shows no acute bleed or mass effect. EKG shows a sinus rhythm, no acute ischemia. Lumbar spine series shows no acute fracture. Right forearm, right wrist and right hand films show no acute fractures. The patient received almost 2 L of IV saline for hydration. He has been doing well, he has been watching TV the entire time. I don't think any medication changes need to be made. I will keep things the same for now. He does need further hydration and his creatinine will need to be checked in about 24 hours. I have made a note of this so that this can be done through the group home. The patient can be returned here for worsening symptoms. Of note, I have ordered Keppra and Lamictal levels, these are send outs and are pending. Impression Primary Impression: Seizure Additional Impressions: Dehydration Right arm pain Scribe Attestation The scribe's documentation has been prepared under my direction and personally reviewed by me in its entirety. I confirm that the note above accurately reflects all work, treatment, procedures, and medical decision making performed by me. Departure Information Dispostion Home / Self-Care Referrals Nadia Bowles (PCP) Forms HOME CARE DOCUMENTATION FORM, IMPORTANT VISIT INFORMATION Additional Instructions tylenol for pain no fracture of the arm or back noted today Brain CT scan was ok you were dehydrated--increase your fluid intake we recommend a repeat creatinine test in 24 hours to be sure the numbers are normalizing you were give IV fluids today for hydration Problem Qualifiers
[2016-08-10 21:40] VITALS: BP 140/95; PULSE 75; O2SAT 94
[2017-01-08] MEDS ORDERED: CARB10TA4 PO (22:44)
[2017-01-12] MEDS ORDERED: IPRASOL4 INH (08:10)
[2017-01-12] MEDS ORDERED: TRAM-10 PO (08:12)
[2017-01-12] MEDS ORDERED: CLON0.5T3 PO (08:12)
[2017-01-12] MEDS ORDERED: LEVO-459 PO (08:13)
[2017-01-12] MEDS ORDERED: DXM/4 PO (08:19)
== END 2016-08-10 22:17 | disposition home or self-care (01) ==
LOC: EDBD 18:40 → C.EDB 18:41
DX: G40.909 Epilepsy, unspecified, not intractable, without status epilepticus (principal); E86.0 Dehydration; M79.601 Pain in right arm; Z87.891 Personal history of nicotine dependence; Z79.82 Long term (current) use of aspirin; Z79.899 Other long term (current) drug therapy; Z79.01 Long term (current) use of anticoagulants; Z88.0 Allergy status to penicillin; Z88.5 Allergy status to narcotic agent; Z88.6 Allergy status to analgesic agent

== ENCOUNTER → 2016-08-10 | Outpatient (CLI) | payer OTHER ==
[2016-08-10 10:02] LABS: INR 2.2 (0.9-1.1); PROTHROMBIN TIME (PATIENT) 23.8 SECONDS (9.0-12.0)
== END ==
LOC: C.LABUPBEA 09:23
PROVIDERS: ATTEND Family Medicine
DX: I63.59 Cerebral infarction due to unspecified occlusion or stenosis of other cerebral artery (principal)

== ENCOUNTER → 2016-08-13 | Outpatient (CLI) | payer OTHER ==
[~2016-08-13] MED LIST changes: +ACET325T96 PO; +APR50 PO; -ASPI-435 PO; +ASPI81TA28 PO; +ATOR-22 PO; +BISA10SU3 PR; +CALC500C3 PO; +CARB10TA4 PO; +CARV25TA2 PO; +CLON0.5T3 PO; +CYCL10TA6 PO; +CYM/30 PO; +DOCU-94 PO; +DULO60CA44 PO; +DXM/4 PO; +GABA-113 PO; +HYDR25TA4 PO; +IPRASOL4 INH; +LACO200T PO; +LEVO-459 PO; +LEVO25TA5 PO; +LISI40TA PO; +MENT4GEL TOP; +ONDA4TAB46 PO; +POTA10TA32 PO; +QUET1TAB30 PO; +SENN8.6T94 PO; +TAMS0.4C38 PO; +TRAM-10 PO; +WARF2TAB8 PO; +WARF3TAB PO; +WARF3TAB6 PO
[2016-08-13 08:42] LABS: HEMATOCRIT 34.5 % (42-52); MEAN CELL VOLUME 96.9 fL (80-100); MEAN CORPUSCULAR HEMOGLOBIN 32.3 pg (25-34); MEAN CORPUSCULAR HGB CONC 33.3 g/dl (32-36); MEAN PLATELET VOLUME 10.8 fL (7.4-10.4); PLATELET COUNT 265 K/uL (130-400); RED BLOOD COUNT 3.56 M/uL (4.7-6.1); WHITE BLOOD COUNT 8.24 K/uL (4.8-10.8)
[2016-08-13 08:49] LABS: ALT/SGPT 13 U/L (12-78); BLOOD UREA NITROGEN 18 mg/dl (7-18); BUN/CREATININE RATIO 10.4 (10-20); CARBON DIOXIDE 30 mmol/L (21-32); CHLORIDE 99 mmol/L (98-107); GLUCOSE 90 mg/dl (70-99); POTASSIUM 3.3 mmol/L (3.5-5.1); SODIUM 139 mmol/L (136-145)
[2016-08-13 08:52] LABS: ALB/GLOB RATIO 0.9 (0.9-2); ALKALINE PHOSPHATASE 106 U/L (45-117); AST/SGOT 14 U/L (15-37)
[2016-08-13 08:53] LABS: CALCIUM 9.1 mg/dl (8.5-10.1)
== END | disposition home or self-care (01) ==
LOC: C.LABUPBEA 08:18
PROVIDERS: ATTEND Family Medicine
DX: I10 Essential (primary) hypertension (principal); G40.909 Epilepsy, unspecified, not intractable, without status epilepticus

== ENCOUNTER → 2016-08-14 | Outpatient (CLI) | payer OTHER ==
[2016-08-14 09:49] LABS: PROTHROMBIN TIME (PATIENT) 22.3 SECONDS (9.0-12.0)
== END ==
LOC: C.LABUPBEA 09:10
PROVIDERS: ATTEND Family Medicine
DX: I63.50 Cerebral infarction due to unspecified occlusion or stenosis of unspecified cerebral artery (principal)

== ENCOUNTER → 2016-08-15 | Outpatient (CLI) | payer OTHER ==
[2016-08-15 10:19] LABS: INR 2.1 (0.9-1.1); PROTHROMBIN TIME (PATIENT) 22.9 SECONDS (9.0-12.0)
--- NOTE | 2016-08-16 12:19 | CODING QUERY NO DIAGNOSIS ---
TREATMENT RENDERED WITHOUT A DIAGNOSIS To promote full compliance with coding requirements relating to patient care, physician participation is requested in all cases of safety counselor uncertainty. Please assist us with providing a diagnosis/symptom for the test(s) below: A diagnosis/symptom was not documented on your Order. A valid diagnosis/symptom is required to bill all insurances. Please remember that we are unable to code a diagnosis of rule out, probable, possible, questionable, or suspected. DATE OF SERVICE: 08/15/16 - Note: The order in our system is not signed and the diagnosis is blacked out. Tests that require a diagnosis: * PROTHROMBIN TIME DIAGNOSIS: Provider Signature: Date: Thank you Natalia Nunez [facility] Information Management Once completed, please kindly fax back to [phone] For questions please call [phone]
== END ==
LOC: C.LABUPBEA 09:41
PROVIDERS: ATTEND Family Medicine
DX: I63.50 Cerebral infarction due to unspecified occlusion or stenosis of unspecified cerebral artery (principal)

== ENCOUNTER → 2016-08-17 | Outpatient (CLI) | payer OTHER ==
[2016-08-17 09:06] LABS: BLOOD UREA NITROGEN 29 mg/dl (7-18); BUN/CREATININE RATIO 11.9 (10-20); CARBON DIOXIDE 30 mmol/L (21-32); CHLORIDE 99 mmol/L (98-107); GLUCOSE 103 mg/dl (70-99); POTASSIUM 3.2 mmol/L (3.5-5.1); SODIUM 137 mmol/L (136-145)
[2016-08-17 09:39] LABS: CALCIUM 8.9 mg/dl (8.5-10.1)
== END ==
LOC: C.LABUPBEA 08:37
PROVIDERS: ATTEND Nurse Practitioner Family
DX: I10 Essential (primary) hypertension (principal)

== ENCOUNTER → 2016-08-18 | Outpatient (CLI) | payer OTHER ==
[2016-08-18 06:27] LABS: BLOOD UREA NITROGEN 23 mg/dl (7-18); CALCIUM 8.2 mg/dl (8.5-10.1); CARBON DIOXIDE 34 mmol/L (21-32); CHLORIDE 101 mmol/L (98-107); GLUCOSE 101 mg/dl (70-99); SODIUM 141 mmol/L (136-145)
== END ==
LOC: C.LABUPBEA 15:48
PROVIDERS: ATTEND Family Medicine
DX: I10 Essential (primary) hypertension (principal)

== ENCOUNTER → 2016-08-20 | Outpatient (CLI) | payer OTHER ==
[2016-08-20 09:16] LABS: CALCIUM 8.6 mg/dl (8.5-10.1)
[2016-08-20 09:22] LABS: BLOOD UREA NITROGEN 14 mg/dl (7-18); BUN/CREATININE RATIO 9.7 (10-20); CARBON DIOXIDE 28 mmol/L (21-32); CHLORIDE 106 mmol/L (98-107); GLUCOSE 91 mg/dl (70-99); POTASSIUM 3.5 mmol/L (3.5-5.1); SODIUM 143 mmol/L (136-145)
== END | disposition home or self-care (01) ==
LOC: C.LABUPBEA 08:39
PROVIDERS: ATTEND Family Medicine
DX: E87.6 Hypokalemia (principal)

== ENCOUNTER → 2016-08-21 | Outpatient (CLI) | payer OTHER ==
[2016-08-21 10:03] LABS: BASO % 0.5 %; BASO ABS # 0.03 K/uL (0-0.2); COMPLETE YES; HEMATOCRIT 29.4 % (42-52); IG% 0.2 %; LYMPH % 16.7 %; LYMPH ABS # 1.06 K/uL (1.2-3.4); MEAN CELL VOLUME 98.7 fL (80-100); MEAN CORPUSCULAR HEMOGLOBIN 32.6 pg (25-34); MEAN PLATELET VOLUME 9.5 fL (7.4-10.4); MONO % 9.9 %; NEUT % 63.7 %; PLATELET COUNT 345 K/uL (130-400); RED BLOOD COUNT 2.98 M/uL (4.7-6.1); WHITE BLOOD COUNT 6.35 K/uL (4.8-10.8)
[2016-08-21 10:26] LABS: INR 3.9 (0.9-1.1); PROTHROMBIN TIME (PATIENT) 43.9 SECONDS (9.0-12.0)
== END ==
LOC: C.LABUPBEA 09:39
PROVIDERS: ATTEND Family Medicine
DX: E87.6 Hypokalemia (principal)

== ENCOUNTER → 2016-08-22 | Outpatient (CLI) | payer OTHER ==
[2016-08-22 09:00] LABS: INR 3.7 (0.9-1.1); PROTHROMBIN TIME (PATIENT) 42.1 SECONDS (9.0-12.0)
== END ==
LOC: C.LABUPBEA 08:29
PROVIDERS: ATTEND Family Medicine
DX: I10 Essential (primary) hypertension (principal)

== ENCOUNTER → 2016-08-23 | Outpatient (CLI) | payer OTHER ==
[2016-08-23 09:46] LABS: INR 2.4 (0.9-1.1)
== END ==
LOC: C.LABUPBEA 09:01
PROVIDERS: ATTEND Family Medicine
DX: I10 Essential (primary) hypertension (principal)

== ENCOUNTER → 2016-08-25 | Outpatient (CLI) | payer OTHER ==
[~2016-08-25] MED LIST changes: +ASPI-435 PO
[2016-08-25 05:20] LABS: HEMATOCRIT 28.6 % (42-52)
== END ==
LOC: C.LAB 15:05
PROVIDERS: ATTEND Otolaryngology
DX: I10 Essential (primary) hypertension (principal)

== ENCOUNTER → 2016-08-27 | Outpatient (CLI) | payer OTHER ==
[~2016-08-27] MED LIST changes: -ASPI-435 PO
[2016-08-27 11:27] LABS: BLOOD UREA NITROGEN 16 mg/dl (7-18); BUN/CREATININE RATIO 10.5 (10-20); CARBON DIOXIDE 32 mmol/L (21-32); CHLORIDE 104 mmol/L (98-107); GLUCOSE 113 mg/dl (70-99); POTASSIUM 3.2 mmol/L (3.5-5.1); SODIUM 142 mmol/L (136-145)
== END | disposition home or self-care (01) ==
LOC: C.LABUPBEA 09:36
PROVIDERS: ATTEND Family Medicine
DX: I10 Essential (primary) hypertension (principal)

== ENCOUNTER → 2016-08-30 | Outpatient (CLI) | payer OTHER ==
[2016-08-30 10:25] LABS: INR 1.7 (0.9-1.1); PROTHROMBIN TIME (PATIENT) 18.8 SECONDS (9.0-12.0)
== END ==
LOC: C.LABUPBEA 09:04
PROVIDERS: ATTEND Family Medicine
DX: I63.50 Cerebral infarction due to unspecified occlusion or stenosis of unspecified cerebral artery (principal)

== ENCOUNTER → 2016-09-07 | Outpatient (CLI) | payer OTHER ==
[2016-09-07 12:01] LABS: INR 1.9 (0.9-1.1); PROTHROMBIN TIME (PATIENT) 21.1 SECONDS (9.0-12.0)
== END ==
LOC: C.LABUPBEA 09:21
PROVIDERS: ATTEND Family Medicine
DX: I63.59 Cerebral infarction due to unspecified occlusion or stenosis of other cerebral artery (principal)

== ENCOUNTER → 2016-09-14 | Outpatient (CLI) | payer OTHER ==
[2016-09-14 09:25] LABS: INR 2.4 (0.9-1.1); PROTHROMBIN TIME (PATIENT) 26.1 SECONDS (9.0-12.0)
--- NOTE | 2016-09-18 20:59 | CODING QUERY NO DIAGNOSIS ---
TREATMENT RENDERED WITHOUT A DIAGNOSIS 53 To promote full compliance with coding requirements relating to patient care, physician participation is requested in all cases of stone circular sawyer uncertainty. Please assist us with providing a diagnosis/symptom for the test(s) below: A diagnosis/symptom was not documented on your Order. A valid diagnosis/symptom is required to bill all insurances. Please remember that we are unable to code a diagnosis of rule out, probable, possible, questionable, or suspected. DOS 09/14/16 Tests that require a diagnosis: * PT/INR DIAGNOSIS: *ON YOUR ORDER YOU HAVE DX CODE I63.5, THIS IS AN INVALID DX CODE, CAN YOU PLEASE ADD CORRECT DX CODE Provider Signature: Date: Thank you Rema [facility] Information Management Once completed, please kindly fax back to [phone] For questions please call [phone]
== END ==
LOC: C.LABUPBEA 08:44
PROVIDERS: ATTEND Family Medicine
DX: I63.50 Cerebral infarction due to unspecified occlusion or stenosis of unspecified cerebral artery (principal)

== ENCOUNTER → 2016-10-01 | Outpatient (CLI) | payer OTHER ==
[~2016-10-01] MED LIST changes: +CARB-157 PO; -CARB10TA4 PO
[2016-10-01 10:59] LABS: INR 1.8 (0.9-1.1); PROTHROMBIN TIME (PATIENT) 19.7 SECONDS (9.0-12.0)
== END | disposition home or self-care (01) ==
LOC: C.LABUPBEA 07:52
PROVIDERS: ATTEND Family Medicine
DX: I63.50 Cerebral infarction due to unspecified occlusion or stenosis of unspecified cerebral artery (principal)

== ENCOUNTER → 2016-10-02 | Outpatient (CLI) | payer OTHER ==
[2016-10-02 11:10] LABS: BLOOD UREA NITROGEN 20 mg/dl (7-18); BUN/CREATININE RATIO 13.4 (10-20); CARBON DIOXIDE 31 mmol/L (21-32); CHLORIDE 104 mmol/L (98-107); GLUCOSE 93 mg/dl (70-99); POTASSIUM 3.2 mmol/L (3.5-5.1); SODIUM 142 mmol/L (136-145)
[2016-10-02 11:21] LABS: INR 1.8 (0.9-1.1); PROTHROMBIN TIME (PATIENT) 20.1 SECONDS (9.0-12.0)
[2016-10-02 12:30] LABS: CALCIUM 9.2 mg/dl (8.5-10.1)
== END ==
LOC: C.LABUPBEA 08:44
PROVIDERS: ATTEND Family Medicine
DX: I63.50 Cerebral infarction due to unspecified occlusion or stenosis of unspecified cerebral artery (principal); E87.6 Hypokalemia

== ENCOUNTER → 2016-10-08 | Outpatient (CLI) | payer OTHER ==
[2016-10-08 09:40] LABS: INR 2.5 (0.9-1.1); PROTHROMBIN TIME (PATIENT) 27.4 SECONDS (9.0-12.0)
== END ==
LOC: C.LABUPBEA 09:11
PROVIDERS: ATTEND Nurse Practitioner Family
DX: I63.50 Cerebral infarction due to unspecified occlusion or stenosis of unspecified cerebral artery (principal)

== ENCOUNTER → 2016-10-10 | Outpatient (CLI) | payer OTHER ==
[2016-10-10 09:32] LABS: INR 2.9 (0.9-1.1); PROTHROMBIN TIME (PATIENT) 32.9 SECONDS (9.0-12.0)
== END | disposition home or self-care (01) ==
LOC: C.LABUPBEA 05:00
PROVIDERS: ATTEND Family Medicine
DX: I63.50 Cerebral infarction due to unspecified occlusion or stenosis of unspecified cerebral artery (principal)

== ENCOUNTER → 2016-10-15 | Outpatient (CLI) | payer OTHER ==
[2016-10-15 10:04] LABS: INR 2.3 (0.9-1.1); PROTHROMBIN TIME (PATIENT) 25.8 SECONDS (9.0-12.0)
== END ==
LOC: C.LABUPBEA 09:02
PROVIDERS: ATTEND Nurse Practitioner Family
DX: I63.50 Cerebral infarction due to unspecified occlusion or stenosis of unspecified cerebral artery (principal)

== ENCOUNTER → 2016-10-22 | Outpatient (CLI) | payer OTHER ==
[2016-10-22 09:38] LABS: PROTHROMBIN TIME (PATIENT) 10.4 SECONDS (9.0-12.0)
== END ==
LOC: C.LABUPBEA 08:35
PROVIDERS: ATTEND Family Medicine
DX: I63.50 Cerebral infarction due to unspecified occlusion or stenosis of unspecified cerebral artery (principal)

== ENCOUNTER → 2016-10-24 | Outpatient (CLI) | payer OTHER ==
[2016-10-24 08:44] LABS: PROTHROMBIN TIME (PATIENT) 10.6 SECONDS (9.0-12.0)
== END ==
LOC: C.LABUPBEA 08:11
PROVIDERS: ATTEND Family Medicine
DX: I63.50 Cerebral infarction due to unspecified occlusion or stenosis of unspecified cerebral artery (principal)

== ENCOUNTER → 2016-10-26 | Outpatient (CLI) | payer OTHER ==
[2016-10-26 09:49] LABS: INR 1.7 (0.9-1.1); PROTHROMBIN TIME (PATIENT) 18.1 SECONDS (9.0-12.0)
== END ==
LOC: C.LABUPBEA 08:55
PROVIDERS: ATTEND Family Medicine
DX: I48.91 Unspecified atrial fibrillation (principal)

== ENCOUNTER → 2016-11-02 | Outpatient (CLI) | payer OTHER ==
[2016-11-02 10:13] LABS: INR 3.5 (0.9-1.1); PROTHROMBIN TIME (PATIENT) 39.9 SECONDS (9.0-12.0)
== END | disposition home or self-care (01) ==
LOC: C.LABUPBEA 09:47
PROVIDERS: ATTEND Family Medicine
DX: I63.50 Cerebral infarction due to unspecified occlusion or stenosis of unspecified cerebral artery (principal)

== ENCOUNTER → 2016-11-05 | Outpatient (CLI) | payer OTHER ==
[2016-11-05 10:36] LABS: PROTHROMBIN TIME (PATIENT) 21.7 SECONDS (9.0-12.0)
== END ==
LOC: C.LABUPBEA 09:30
PROVIDERS: ATTEND Family Medicine
DX: I63.50 Cerebral infarction due to unspecified occlusion or stenosis of unspecified cerebral artery (principal)

== ENCOUNTER → 2016-11-12 | Outpatient (CLI) | payer OTHER ==
[2016-11-12 10:44] LABS: INR 3.7 (0.9-1.1); PROTHROMBIN TIME (PATIENT) 41.5 SECONDS (9.0-12.0)
== END | disposition home or self-care (01) ==
LOC: C.LABUPBEA 10:02
PROVIDERS: ATTEND Nurse Practitioner Family
DX: I63.50 Cerebral infarction due to unspecified occlusion or stenosis of unspecified cerebral artery (principal)

== ENCOUNTER → 2016-11-14 | Outpatient (CLI) | payer OTHER ==
[2016-11-14 10:35] LABS: INR 2.5 (0.9-1.1); PROTHROMBIN TIME (PATIENT) 27.9 SECONDS (9.0-12.0)
== END | disposition home or self-care (01) ==
LOC: C.LABUPBEA 09:08
PROVIDERS: ATTEND Nurse Practitioner Family
DX: I63.50 Cerebral infarction due to unspecified occlusion or stenosis of unspecified cerebral artery (principal)

== ENCOUNTER → 2016-11-16 | Outpatient (CLI) | payer OTHER ==
[2016-11-16 10:44] LABS: INR 2.5 (0.9-1.1); PROTHROMBIN TIME (PATIENT) 27.4 SECONDS (9.0-12.0)
== END | disposition home or self-care (01) ==
LOC: C.LABUPBEA 09:13
PROVIDERS: ATTEND Nurse Practitioner Family
DX: Z79.01 Long term (current) use of anticoagulants (principal)

== ENCOUNTER → 2016-11-23 | Outpatient (CLI) | payer OTHER ==
[2016-11-23 08:56] LABS: INR 2.6 (0.9-1.1); PROTHROMBIN TIME (PATIENT) 29.1 SECONDS (9.0-12.0)
== END ==
LOC: C.LABUPBEA 08:40
PROVIDERS: ATTEND Nurse Practitioner Family
DX: I63.50 Cerebral infarction due to unspecified occlusion or stenosis of unspecified cerebral artery (principal)

== ENCOUNTER → 2016-12-07 | Outpatient (CLI) | payer OTHER ==
[2016-12-07 10:12] LABS: INR 2.7 (0.9-1.1); PROTHROMBIN TIME (PATIENT) 30.1 SECONDS (9.0-12.0)
== END ==
LOC: C.LABUPBEA 09:27
PROVIDERS: ATTEND Nurse Practitioner Family
DX: I63.50 Cerebral infarction due to unspecified occlusion or stenosis of unspecified cerebral artery (principal)

== ENCOUNTER → 2016-12-10 | Outpatient (CLI) | payer OTHER ==
[2016-12-10 03:00] LABS: BASO % 0.7 %; BASO ABS # 0.04 K/uL (0-0.2); COMPLETE YES; EOS % 8.4 %; HEMATOCRIT 38.1 % (42-52); IG% 0.4 %; LYMPH % 25.3 %; LYMPH ABS # 1.39 K/uL (1.2-3.4); MEAN CELL VOLUME 96.2 fL (80-100); MEAN CORPUSCULAR HEMOGLOBIN 31.6 pg (25-34); MEAN CORPUSCULAR HGB CONC 32.8 g/dl (32-36); MEAN PLATELET VOLUME 10.5 fL (7.4-10.4); MONO % 11.5 %; NEUT % 53.7 %; PLATELET COUNT 259 K/uL (130-400); RED BLOOD COUNT 3.96 M/uL (4.7-6.1); WHITE BLOOD COUNT 5.49 K/uL (4.8-10.8)
[2016-12-10 03:09] LABS: ALT/SGPT 18 U/L (12-78); AST/SGOT 15 U/L (15-37); BLOOD UREA NITROGEN 17 mg/dl (7-18); BUN/CREATININE RATIO 12.4 (10-20); CALCIUM 8.5 mg/dl (8.5-10.1); CARBON DIOXIDE 32 mmol/L (21-32); CHLORIDE 104 mmol/L (98-107); GLUCOSE 126 mg/dl (70-99); SODIUM 141 mmol/L (136-145)
[2016-12-10 03:14] LABS: ALB/GLOB RATIO 0.8 (0.9-2); ALKALINE PHOSPHATASE 114 U/L (45-117)
== END ==
LOC: C.LABUPNIT 08:20
PROVIDERS: ATTEND Nurse Practitioner Family
DX: E87.6 Hypokalemia (principal); I63.50 Cerebral infarction due to unspecified occlusion or stenosis of unspecified cerebral artery; R06.02 Shortness of breath

== ENCOUNTER → 2016-12-25 | Outpatient (CLI) | payer SELFPAY ==
[2016-12-25 09:23] LABS: HEMATOCRIT 36.7 % (42-52); MEAN CELL VOLUME 99.7 fL (80-100); MEAN CORPUSCULAR HEMOGLOBIN 32.1 pg (25-34); MEAN CORPUSCULAR HGB CONC 32.2 g/dl (32-36); MEAN PLATELET VOLUME 10.6 fL (7.4-10.4); PLATELET COUNT 255 K/uL (130-400); RED BLOOD COUNT 3.68 M/uL (4.7-6.1); WHITE BLOOD COUNT 5.32 K/uL (4.8-10.8)
[2016-12-25 09:30] LABS: BLOOD UREA NITROGEN 14 mg/dl (7-18); BUN/CREATININE RATIO 9.3 (10-20); CALCIUM 8.8 mg/dl (8.5-10.1); CARBON DIOXIDE 34 mmol/L (21-32); CHLORIDE 102 mmol/L (98-107); GLUCOSE 77 mg/dl (70-99); POTASSIUM 3.2 mmol/L (3.5-5.1); SODIUM 141 mmol/L (136-145)
== END ==
LOC: C.LABUPBEA 08:46
PROVIDERS: ATTEND Nurse Practitioner Family
DX: E78.00 Pure hypercholesterolemia, unspecified (principal); I10 Essential (primary) hypertension

== ENCOUNTER → 2016-12-25 | Outpatient (CLI) | payer SELFPAY ==
[2016-12-25 10:14] LABS: MANUAL MICROSCOPIC REQUIRED? NO; REVIEW REQ? NO; URINE APPEARANCE CLEAR (CLEAR); URINE BILIRUBIN NEG (NEG); URINE COLOR DK YELLOW; URINE NITRITE NEG (NEG); URINE PH 5.5 (4.5-7.5); UROBILINOGEN NEG (NEG)
== END ==
LOC: C.LABUPBEA 09:05
PROVIDERS: ATTEND Nurse Practitioner Family
DX: R41.82 Altered mental status, unspecified (principal)

== ENCOUNTER → 2016-12-28 | Outpatient (CLI) | payer SELFPAY ==
[2016-12-28 09:18] LABS: HEMATOCRIT 39.5 % (42-52); MEAN CELL VOLUME 98.8 fL (80-100); MEAN CORPUSCULAR HEMOGLOBIN 31.3 pg (25-34); MEAN CORPUSCULAR HGB CONC 31.6 g/dl (32-36); MEAN PLATELET VOLUME 10.6 fL (7.4-10.4); PLATELET COUNT 274 K/uL (130-400); WHITE BLOOD COUNT 5.97 K/uL (4.8-10.8)
[2016-12-28 09:27] LABS: BLOOD UREA NITROGEN 14 mg/dl (7-18); BUN/CREATININE RATIO 11.3 (10-20); CALCIUM 8.8 mg/dl (8.5-10.1); CARBON DIOXIDE 31 mmol/L (21-32); CHLORIDE 106 mmol/L (98-107); GLUCOSE 109 mg/dl (70-99); POTASSIUM 3.3 mmol/L (3.5-5.1); SODIUM 142 mmol/L (136-145)
== END | disposition home or self-care (01) ==
LOC: C.LABUPNIT 08:19
PROVIDERS: ATTEND Nurse Practitioner Family
DX: I63.50 Cerebral infarction due to unspecified occlusion or stenosis of unspecified cerebral artery (principal)

== ENCOUNTER → 2016-12-31 | Outpatient (CLI) | payer SELFPAY | END | disposition home or self-care (01) | LOC: C.LABUPNIT 15:43 | PROVIDERS: ATTEND Nurse Practitioner Family | DX: I10 Essential (primary) hypertension (principal) ==

== ENCOUNTER 2017-01-08 13:40 | Inpatient (IN) | payer OTHER ==
[~2017-01-08] VITALS: Ht 167.6 cm; Wt 90.9 kg
[~2017-01-08 13:40] MED LIST changes: -ACET325T96 PO; -APR50 PO; -ASPI81TA28 PO; -ATOR-22 PO; -BISA10SU3 PR; -CALC500C3 PO; -CARB-157 PO; -CARV25TA2 PO; -CLON0.5T3 PO; -CYCL10TA6 PO; -CYM/30 PO; -DOCU-94 PO; -DULO60CA44 PO; -DXM/4 PO; -GABA-113 PO; -HYDR25TA4 PO; -IPRASOL4 INH; -LACO200T PO; -LAMO200T38 PO; -LAMO25TA PO; -LEVO-459 PO; -LEVO25TA5 PO; -LISI40TA PO; -MENT4GEL TOP; -MOML PO; -ONDA4TAB46 PO; -POTA10TA32 PO; -QUET1TAB30 PO; -SENN8.6T94 PO; -SODIENE PR; -TAMS0.4C38 PO; -TRAM-10 PO; -WARF3TAB PO
--- NOTE | 2017-01-08 14:26 | EMERGENCY ROOM VISIT NOTE ---
History Report prepared by Carmen: Donny Blackwood Under the Supervision of: Dr. Gurinder Montalvo M.D. First contact with patient: 14:01 Chief Complaint: RESPIRATORY PROBLEMS Stated Complaint: SHORTNESS OF BREATH Nursing Triage Summary: patient c/o sob started 3 days ago. patient was given a duoneb, 1 albuterol treatment, and 125 mg solumedrol. patient has dry cough. lungs are dimished throughout. History of Present Illness The patient is a 61 year old white male with a past medical history of HTN, CKD , DVT, and CVA who presents to the ED with a cc of constant SOB beginning three days ago that is worsened with bending over. Positive dry cough and sharp chest pain that is not worse with exertion. Negative abdominal pain, fever, history of COPD, history of heart failure, A-fib, blood clots, recent falls, or inhaler use. The patient states that he does not use oxygen at home. Source of History: patient Onset: three days ago Position: other (global) Quality: other (shortness of breath) Timing: constant Associated Symptoms: + cough, + chest pain, No fevers, No abdominal pain Review of Systems See HPI for pertinent positives and negatives. A total of ten systems were reviewed and were otherwise negative. Past Medical & Surgical Medical Problems: (1) Altered mental status (2) Altered mental status (3) No Known Active Medical Problems (4) Pain of right side of body (5) Right arm weakness Family History Patient reports no known family medical history. Social History Smoking Status: Never Smoker Alcohol Use: occasionally Drug Use: marijuana Housing Status: alf Occupation Status: retired Current/Historical Medications Scheduled Aspirin (Aspirin Ec), 81 MG PO DAILY Atorvastatin (Lipitor), 20 MG PO HS Carbidopa/Levodopa (Sinemet 10MG/100MG), 1 TAB PO Q6H Carvedilol (Coreg), 25 MG PO Q12 Clonazepam (Klonopin), 0.5 MG PO BID Docusate Sodium (Colace), 100 PO BID Duloxetine HCl (Cymbalta), 30 MG PO DAILY Duloxetine Hcl (Cymbalta), 60 MG PO DAILY Gabapentin (Neurontin), 600 MG PO TID Hydralazine HCl (Hydralazine HCl), 50 MG PO QID Hydrochlorothiazide (Hctz), 25 MG PO DAILY Lacosamide (Vimpat), 200 MG PO BID Lamotrigine (Lamictal), 200 MG PO BID Lamotrigine (Lamictal), 25 MG PO BID Levothyroxine Sodium (Levothyroxine Sodium), 25 MCG PO DAILY Lisinopril (Zestril), 40 MG PO DAILY Potassium Chloride Microencaps (Potassium Chloride Er), 30 MEQ PO DAILY Quetiapine Fumarate (Seroquel), 75 MG PO HS Quetiapine Fumarate (Seroquel), 25 MG PO QD@1200 Sennosides (Sennosides), 17.2 MG PO BID Tamsulosin Hcl (Flomax), 0.4 MG PO DAILY Warfarin Sodium (Coumadin), 3 MG PO HS Scheduled PRN Acetaminophen Tab (Tylenol), 650 MG PO Q6H PRN for Pain or Fever Bisacodyl (Dulcolax), 1 SUPP NJ UD PRN for Constipation Calcium Carbonate (Tums), 1,000 MG PO Q6H PRN for HB/GI Upset Cyclobenzaprine Hcl (Flexeril), 10 MG PO BID PRN for Muscle Spasm/Pain Ipratropium-Albuterol (Duoneb), 1 TREATMENT INH Q6H PRN for Shortness of Breath Magnesium Hydroxide (Milk Of Magnesia), 30 ML PO UD PRN for Constipation Menthol (Topical Analgesic) (Biofreeze), 1 APPLN TOP Q4H PRN for Left AC Pain Ondansetron Hcl (Zofran), 4 MG PO Q8 PRN for Nausea or Vomiting Sodium Phosphate/Biphosphate (Fleet Enema), 1 EA NJ UD PRN for Constipation Tramadol (Ultram), 50 MG PO Q4H PRN for Pain Allergies Coded Allergies: Hydromorphone (Verified Allergy, Unknown, Unknown, 08/10/16) Penicillins (Unverified Allergy, Unknown, UNKNOWN, 08/10/16) Aspirin (Unverified Adverse Reaction, Unknown, NAUSEA, 02/27/16) Physical Exam Vital Signs Date Time Temp Pulse Resp B/P (MAP) Pulse Ox O2 Delivery O2 Flow Rate FiO2 01/08/17 17:58 80 01/08/17 17:32 78 24 104/63 93 BiPAP 01/08/17 16:51 99 BiPAP 3.0 40 01/08/17 15:38 74 99 40 01/08/17 15:32 78 22 104/60 96 Nebulizer 01/08/17 15:01 78 18 92 Nasal Cannula 3.0 01/08/17 14:46 77 20 107/55 93 Nasal Cannula 3.0 01/08/17 14:39 93 Nasal Cannula 3.0 01/08/17 14:28 85 Room Air 01/08/17 14:06 78 18 94/62 93 Nasal Cannula 2.0 01/08/17 13:54 94 Room Air 01/08/17 13:54 94 Nasal Cannula 2.0 01/08/17 13:54 36.8 77 20 112/72 94 Nasal Cannula 2.0 01/08/17 13:52 78 Physical Exam GENERAL: Mildly slow to respond but appropriate. Follows commands HENT: Normocephalic, atraumatic. EYES: Normal conjunctiva. Sclera non-icteric. NECK: Supple. No nuchal rigidity. FROM. RESPIRATORY: Decreased breath sounds throughout. Inspiratory and expiratory wheezing. CARDIAC: RRR, no MRG ABDOMEN: Soft, NTND, BS+ MSK: Trace pretibial edema bilaterally. No chest wall TTP. NEURO: GCS 15, CN 2-12 intact, moves all 4s on command SKIN: No rash or jaundice noted. Medical Decision & Procedures ER Provider Diagnostic Interpretation: Radiology results as stated below per my review and radiologist interpretation: CHEST ONE VIEW PORTABLE HISTORY: 61 years-old Male SOB, diffuse wheezing, decreased BS acute shortness of breath and wheezing COMPARISON: Chest radiograph 08/10/2016 TECHNIQUE: Portable upright AP view of the chest FINDINGS: Cardiac silhouette is again mildly enlarged. There is atherosclerosis of the aorta. No pneumothorax or large pleural effusion. There is mild pulmonary vascular congestion. Patchy alveolar opacities of the left mid lung and left lung base are noted. The bones are grossly intact. IMPRESSION: 1. Patchy alveolar opacities of the left midlung and left lung base are suspicious for pneumonia. 2. Mild cardiomegaly without overt pulmonary edema. The above report was generated using voice recognition software. It may contain grammatical, syntax or spelling errors. Electronically signed by: Isaac Mckinney M.D. 01/08/2017 2:54 PM Dictated Date/Time: 01/08/2017 2:53 PM Laboratory Results 01/08/17 13:54 Red Blood Count 3.76, Mean Corpuscular Volume 98.9, Mean Corpuscular Hemoglobin 33.0, Mean Corpuscular Hemoglobin Concent 33.3, Mean Platelet Volume 11.6, Neutrophils (%) (Auto) 77.2, Lymphocytes (%) (Auto) 9.5, Monocytes (%) (Auto) 7.1, Eosinophils (%) (Auto) 5.8, Basophils (%) (Auto) 0.2, Neutrophils # (Auto) 9.38, Lymphocytes # (Auto) 1.16, Monocytes # (Auto) 0.87, Eosinophils # (Auto) 0.71, Basophils # (Auto) 0.02 01/08/17 16:01 Test 01/08/17 13:54 01/08/17 14:42 01/08/17 16:01 01/08/17 17:09 White Blood Count 12.17 K/uL (4.8-10.8) Red Blood Count 3.76 M/uL (4.7-6.1) Hemoglobin 12.4 g/dL (14.0-18.0) Hematocrit 37.2 % (42-52) Mean Corpuscular Volume 98.9 fL (80-100) Mean Corpuscular Hemoglobin 33.0 pg (25-34) Mean Corpuscular Hemoglobin Concent 33.3 g/dl (32-36) Platelet Count 246 K/uL (130-400) Mean Platelet Volume 11.6 fL (7.4-10.4) Neutrophils (%) (Auto) 77.2 % Lymphocytes (%) (Auto) 9.5 % Monocytes (%) (Auto) 7.1 % Eosinophils (%) (Auto) 5.8 % Basophils (%) (Auto) 0.2 % Neutrophils # (Auto) 9.38 K/uL (1.4-6.5) Lymphocytes # (Auto) 1.16 K/uL (1.2-3.4) Monocytes # (Auto) 0.87 K/uL (0.11-0.59) Eosinophils # (Auto) 0.71 K/uL (0-0.5) Basophils # (Auto) 0.02 K/uL (0-0.2) RDW Standard Deviation 60.3 fL (36.4-46.3) RDW Coefficient of Variation 16.6 % (11.5-14.5) Immature Granulocyte % (Auto) 0.2 % Immature Granulocyte # (Auto) 0.03 K/uL (0.00-0.02) Venous Blood pH 7.32 (7.36-7.41) Venous Blood Partial Pressure CO2 61 mmHg (38.0-50.0) Venous Blood Partial Pressure O2 40 mmHg Venous Blood HCO3 30 mmol/L Venous Blood Oxygen Saturation 68.4 % Venous Blood Base Excess 2.8 mEq/L Lactic Acid Level 1.6 mmol/L (0.4-2.0) Prothrombin Time 42.8 SECONDS (9.0-12.0) Prothromb Time International Ratio 3.8 (0.9-1.1) Activated Partial Thromboplast Time 77.0 SECONDS (21.0-31.0) Partial Thromboplastin Ratio 3.0 Anion Gap 8.0 mmol/L (3-11) Est Creatinine Clear Calc Drug Dose 45.1 ml/min Estimated GFR () 42.5 Estimated GFR (Non- 36.7 BUN/Creatinine Ratio 15.4 (10-20) Calcium Level 8.4 mg/dl (8.5-10.1) Total Bilirubin 0.3 mg/dl (0.2-1) Aspartate Amino Transf (AST/SGOT) 9 U/L (15-37) Alanine Aminotransferase (ALT/SGPT) 14 U/L (12-78) Alkaline Phosphatase 119 U/L (45-117) Troponin I < 0.015 ng/ml (0-0.045) Total Protein 7.0 gm/dl (6.4-8.2) Albumin 3.2 gm/dl (3.4-5.0) Globulin 3.8 gm/dl (2.5-4.0) Albumin/Globulin Ratio 0.8 (0.9-2) Laboratory results reviewed by me Medications Administered Medications (Trade) Dose Ordered Sig/Dede Route Start Time Stop Time Status Last Admin Dose Admin Albuterol/ Ipratropium (Duoneb) 12 ml ONE ONCE INH 01/08/17 14:45 01/08/17 14:46 DC 01/08/17 14:59 12 ML Ceftriaxone Sodium (Rocephin Inj) 1 gm NOW STAT IV 01/08/17 14:32 01/08/17 14:36 DC 01/08/17 15:29 1 GM Azithromycin 500 mg/Dextrose 255 ml @ 125 mls/hr ONE ONCE IV 01/08/17 14:45 01/08/17 16:47 DC 01/08/17 14:45 125 MLS/HR Magnesium Sulfate (Magnesium Sulfate) 1 gm NOW STAT IV 01/08/17 14:32 01/08/17 14:36 DC 01/08/17 14:52 1 GM ECG Indication: SOB/dyspnea Rate (beats per minute): 75 Rhythm: normal sinus Findings: no ectopy, other (Normal intervals. Normal axis. No other STS changes or TWIs) ED Course 1420: The patient was evaluated in room B3. A complete history and physical exam was performed. 1631: Discussed the patient's case with Dr. Sutherland. The patient will be evaluated for further treatment and disposition. 1704: I reevaluated the patient, and I had a long conversation about the treatment plan, and he was agreeable. Medical Decision The patient is a 61 year old white male with a past medical history of HTN, CKD , DVT, and CVA who presents to the ED with a cc of constant SOB beginning three days ago that is worsened with bending over. Positive dry cough and sharp chest pain that is not worse with exertion. Negative abdominal pain, fever, history of COPD, history of heart failure, A-fib, blood clots, recent falls, or inhaler use. The patient states that he does not use oxygen at home. Triage Nursing notes reviewed. The patient's presentation and history were concerning for infections, reactive airway disease, pneumonia, pneumothorax, COPD, CHF, cardiac ischemia, pulmonary embolism, musculoskeletal, gastrointestinal, as well as others were entertained. Patient was seen and evaluated at the bedside. Patient was given Solu-Medrol 1 DuoNeb prior to arrival. Patient notably had inspiratory and expiratory wheezing on exam. Patient was also hypoxic off of oxygen down to 85%. Patient was unable to give me any other infectious symptoms. Patient is a history of being on Coumadin for prior DVTs. Patient was noted to have a white blood cell count of 12 with a concern for pneumonia. Patient was apparently given Rocephin and azithromycin in addition to a an hour-long DuoNeb and mag given the patient's hypoxic symptoms. Patient also did have an elevated PCO2 at 61 which was concerning for an acute respiratory acidosis and hypercarbia. Respiratory was called to initiate BiPAP. Patient admitted to medicine. Medication Reconcilliation Current Medication List: was personally reviewed by me Blood Pressure Screening Patient's blood pressure: Normal blood pressure Consults Time Called: 1542 Consulting Physician: Dr. Sutherland Returned Call: 1631 Discussed the patient's case with Dr. Sutherland. The patient will be evaluated for further treatment and disposition. Impression Primary Impression: SOB (shortness of breath) Additional Impressions: Acute respiratory failure with hypoxemia Hypercapnia Pneumonia Critical Care I have personally spent greater than 40 minutes of critical care time in the direct management of this patient. This includes bedside care, interpretation of diagnostic studies, and testing, discussion with consultants, patient, and family members, and other required patient management activities. This 40 minutes is in excess of all separately billable procedures. Scribe Attestation The scribe's documentation has been prepared under my direction and personally reviewed by me in its entirety. I confirm that the note above accurately reflects all work, treatment, procedures, and medical decision making performed by me. Departure Information Dispostion Being Evaluated By Hospitalist Referrals Reza Bowles (PCP) Patient Instructions My [facility] Problem Qualifiers Additional Impressions: Pneumonia Pneumonia type: due to unspecified organism Laterality: left Lung location : lower lobe of lung Qualified Codes: J18.1 - Lobar pneumonia, unspecified organism
[2017-01-08] MEDS ORDERED: CEFTRIAXONE SOD INJ 1 GM ADDVIAL IV STA (14:32)
[2017-01-08] MEDS ORDERED: MAGNESIUM SULFATE 1GM / D5W 1 GM BAG IV STA (14:32)
[2017-01-08] MEDS ORDERED: AZITHROMYCIN IV 500 MG in DEXTROSE 5% 250ML 250 ML IV ONE (14:45)
[2017-01-08] MEDS ORDERED: ALBUT/IPRATROP 3MG/0.5MG NEB 3 ML VIAL INH ONE (14:45)
--- NOTE | 2017-01-08 14:55 | DIAGNOSTIC IMAGING REPORT ---
CHEST ONE VIEW PORTABLE HISTORY: 61 years-old Male SOB, diffuse wheezing, decreased BS acute shortness of breath and wheezing COMPARISON: Chest radiograph 08/10/2016 TECHNIQUE: Portable upright AP view of the chest FINDINGS: Cardiac silhouette is again mildly enlarged. There is atherosclerosis of the aorta. No pneumothorax or large pleural effusion. There is mild pulmonary vascular congestion. Patchy alveolar opacities of the left mid lung and left lung base are noted. The bones are grossly intact. IMPRESSION: 1. Patchy alveolar opacities of the left midlung and left lung base are suspicious for pneumonia. 2. Mild cardiomegaly without overt pulmonary edema. The above report was generated using voice recognition software. It may contain grammatical, syntax or spelling errors. Electronically signed by: Isaac Mckinney M.D. 01/08/2017 2:54 PM Dictated Date/Time: 01/08/2017 2:53 PM
[2017-01-08 14:56] LABS: VEN BLD GAS O2 SATURATION 68.4 %; VEN BLOOD GAS BASE EXCESS 2.8 mEq/L
[2017-01-08 15:01] VITALS: PULSE 78; O2SAT 92
[2017-01-08] MEDS ORDERED: POTA10TA32 PO (15:05)
[2017-01-08] MEDS ORDERED: LAMO200T38 PO (15:07)
[2017-01-08] MEDS ORDERED: GABA-113 PO (15:08)
[2017-01-08 15:09] LABS: BASO % 0.2 %; BASO ABS # 0.02 K/uL (0-0.2); COMPLETE YES; EOS % 5.8 %; HEMATOCRIT 37.2 % (42-52); IG% 0.2 %; LYMPH % 9.5 %; LYMPH ABS # 1.16 K/uL (1.2-3.4); MEAN CELL VOLUME 98.9 fL (80-100); MEAN CORPUSCULAR HGB CONC 33.3 g/dl (32-36); MEAN PLATELET VOLUME 11.6 fL (7.4-10.4); MONO % 7.1 %; NEUT % 77.2 %; PLATELET COUNT 246 K/uL (130-400); RED BLOOD COUNT 3.76 M/uL (4.7-6.1); WHITE BLOOD COUNT 12.17 K/uL (4.8-10.8)
[2017-01-08] MEDS ORDERED: IPRASOL4 INH (15:12)
[2017-01-08] MEDS ORDERED: ONDA4TAB46 PO (15:14)
[2017-01-08] MEDS ORDERED: SODIENE PR (15:14)
[2017-01-08] MEDS ORDERED: MOML PO (15:18)
[2017-01-08] MEDS ORDERED: CALC500C3 PO (15:18)
[2017-01-08] MEDS ORDERED: MENT4GEL TOP (15:22)
[2017-01-08] MEDS ORDERED: CYCL10TA6 PO (15:22)
[2017-01-08] MEDS ORDERED: SENN8.6T94 PO (15:25)
[2017-01-08] MEDS ORDERED: LAMO25TA PO (15:25)
[2017-01-08] MEDS ORDERED: LEVO25TA5 PO (15:32)
[2017-01-08] MEDS ORDERED: QUET1TAB30 PO ×2 (15:32→21:24)
[2017-01-08] MEDS ORDERED: CARV25TA2 PO (15:32)
[2017-01-08] MEDS ORDERED: HYDR25TA4 PO (15:36)
[2017-01-08] MEDS ORDERED: WARF3TAB PO (15:37)
[2017-01-08] MEDS ORDERED: CYM/30 PO (15:37)
[2017-01-08 15:38] VITALS: PULSE 74; O2SAT 99
[2017-01-08] MEDS ORDERED: SODIUM CHLORIDE 0.9% 500ML 500 ML IV STA (15:39)
[2017-01-08 16:39] LABS: ALT/SGPT 14 U/L (12-78); AST/SGOT 9 U/L (15-37); BLOOD UREA NITROGEN 29 mg/dl (7-18); BUN/CREATININE RATIO 15.4 (10-20); CALCIUM 8.4 mg/dl (8.5-10.1); CARBON DIOXIDE 28 mmol/L (21-32); CHLORIDE 102 mmol/L (98-107); GLUCOSE 159 mg/dl (70-99); POTASSIUM 4.1 mmol/L (3.5-5.1); SODIUM 138 mmol/L (136-145)
[2017-01-08 16:44] LABS: ALB/GLOB RATIO 0.8 (0.9-2); ALKALINE PHOSPHATASE 119 U/L (45-117)
[2017-01-08 16:47] LABS: INR 3.8 (0.9-1.1); PROTHROMBIN TIME (PATIENT) 42.8 SECONDS (9.0-12.0)
[2017-01-08 16:51] VITALS: O2SAT 99; Ht 167.6 cm; Wt 90.9 kg
[2017-01-08] MEDS ORDERED: ONDANSETRON INJ 2 MG/ML 2 ML VIAL IV PRN (17:45)
[2017-01-08] MEDS ORDERED: MAGNESIUM HYDROXIDE SUSP 30 ML UDC PO PRN (17:45)
[2017-01-08] MEDS ORDERED: ALUMINUM/MAGNESIUM/SIMETH (MAALOX MAX) 30 ML UDC PO PRN (17:45)
[2017-01-08] MEDS ORDERED: POLYETHYLENE (MIRALAX) 17 GM PACK PO PRN (17:45)
[2017-01-08] MEDS ORDERED: ACETAMINOPHEN 325 MG TAB PO PRN (17:45)
[2017-01-08] MEDS ORDERED: BISACODYL 10 MG SUPP PR PRN (18:15)
[2017-01-08] MEDS ORDERED: TRAMADOL HCL 50 MG TAB PO PRN (18:15)
[2017-01-08] MEDS ORDERED: CYCLOBENZAPRINE HCL 10 MG TAB PO PRN (18:15)
[2017-01-08] MEDS ORDERED: CALCIUM CARBONATE 500 MG CHEWABLE PO PRN (18:15)
--- NOTE | 2017-01-08 18:25 | History and Physical ---
History & Physical Date & Time of Service: Jan 08, 2017 at 17:57 Chief Complaint: Shortness Of Breath Primary Care Physician: Reza Bowles History of Present Illness Source: patient, clinic records, hospital records, senior care ([facility]) This is a 61 y/o male with a history of HTN, CVA, epilepsy, anxiety, depression , mood disorder, migraines, RLS, hypothyroidism and BPH who presented to the ED on 01/08 with shortness of breath. The patient states that he is chronically short of breath but that it became worse than usual this morning. He does not wear oxygen at home. He also complains of a non-productive cough, wheezing, and a left sided chest pain. He states he has some abdominal pain now with coughing but denies any at rest. He states he has been feeling more generally weak and fatigued lately. He has residual right sided weakness and tingling from a prior CVA. The patient denies fevers, chills, sweats, palpitations, claudication, nausea, vomiting, abdominal pain, dysuria, hematuria, urinary retention, paralysis. Past Medical/Surgical History HTN CVA Epilepsy Anxiety and depression Mood disorder Migraines RLS Hypothyroidism BPH Family History CHF (congestive heart failure) Cancer Hypertension Myocardial infarction Social History Smoking Status: Former Smoker (quit 2011) Smokeless Tobacco Use: No Alcohol Use: none Drug Use: marijuana Marital Status: Housing status: senior care ([facility]) Occupational Status: retired Multi-Drug Resistant Organisms History of MDRO: No Allergies Coded Allergies: Hydromorphone (Verified Allergy, Unknown, Unknown, 08/10/16) Penicillins (Unverified Allergy, Unknown, UNKNOWN, 08/10/16) Aspirin (Unverified Adverse Reaction, Unknown, NAUSEA, 02/27/16) Home Medications Scheduled Aspirin (Aspirin Ec), 81 MG PO DAILY Atorvastatin (Lipitor), 20 MG PO HS Carbidopa/Levodopa (Sinemet 10MG/100MG), 1 TAB PO Q6H Carvedilol (Coreg), 25 MG PO Q12 Clonazepam (Klonopin), 0.5 MG PO BID Docusate Sodium (Colace), 100 PO BID Duloxetine HCl (Cymbalta), 30 MG PO DAILY Duloxetine Hcl (Cymbalta), 60 MG PO DAILY Gabapentin (Neurontin), 600 MG PO TID Hydralazine HCl (Hydralazine HCl), 50 MG PO QID Hydrochlorothiazide (Hctz), 25 MG PO DAILY Lacosamide (Vimpat), 200 MG PO BID Lamotrigine (Lamictal), 200 MG PO BID Lamotrigine (Lamictal), 25 MG PO BID Levothyroxine Sodium (Levothyroxine Sodium), 25 MCG PO DAILY Lisinopril (Zestril), 40 MG PO DAILY Potassium Chloride Microencaps (Potassium Chloride Er), 30 MEQ PO DAILY Quetiapine Fumarate (Seroquel), 75 MG PO HS Quetiapine Fumarate (Seroquel), 25 MG PO QD@1200 Sennosides (Sennosides), 17.2 MG PO BID Tamsulosin Hcl (Flomax), 0.4 MG PO DAILY Warfarin Sodium (Coumadin), 3 MG PO HS Scheduled PRN Acetaminophen Tab (Tylenol), 650 MG PO Q6H PRN for Pain or Fever Bisacodyl (Dulcolax), 1 SUPP VT UD PRN for Constipation Calcium Carbonate (Tums), 1,000 MG PO Q6H PRN for HB/GI Upset Cyclobenzaprine Hcl (Flexeril), 10 MG PO BID PRN for Muscle Spasm/Pain Ipratropium-Albuterol (Duoneb), 1 TREATMENT INH Q6H PRN for Shortness of Breath Magnesium Hydroxide (Milk Of Magnesia), 30 ML PO UD PRN for Constipation Menthol (Topical Analgesic) (Biofreeze), 1 APPLN TOP Q4H PRN for Left AC Pain Ondansetron Hcl (Zofran), 4 MG PO Q8 PRN for Nausea or Vomiting Sodium Phosphate/Biphosphate (Fleet Enema), 1 EA VT UD PRN for Constipation Tramadol (Ultram), 50 MG PO Q4H PRN for Pain Review of Systems Constitutional: + weakness, + fatigue, No fever, No chills, No sweats Eyes: No worsening of vision, No discharge, No diplopia ENT: No hearing loss, No sore throat, No trouble swallowing Respiratory: + cough, + wheezing, + shortness of breath, No sputum Cardiovascular: + chest pain, No claudication, No palpitations Abdomen: No pain, No nausea, No vomiting Musculoskeletal: No joint pain, No muscle pain, No swelling Genitourinary - Male: No hematuria, No dysuria, No urinary retention Neurologic: No paralysis, No weakness, No numbness/tingling Integumentary: No rash, No itch, No color change Physical Exam Vital Signs Date Time Temp Pulse Resp B/P (MAP) Pulse Ox O2 Delivery O2 Flow Rate FiO2 01/08/17 17:32 78 24 104/63 93 BiPAP 01/08/17 16:51 99 BiPAP 3.0 40 01/08/17 15:38 74 99 40 01/08/17 15:32 78 22 104/60 96 Nebulizer 01/08/17 15:01 78 18 92 Nasal Cannula 3.0 01/08/17 14:46 77 20 107/55 93 Nasal Cannula 3.0 01/08/17 14:39 93 Nasal Cannula 3.0 01/08/17 14:28 85 Room Air 01/08/17 14:06 78 18 94/62 93 Nasal Cannula 2.0 01/08/17 13:54 94 Room Air 01/08/17 13:54 94 Nasal Cannula 2.0 01/08/17 13:54 36.8 77 20 112/72 94 Nasal Cannula 2.0 01/08/17 13:52 78 General appearance: +Obese. Well-developed, well-nourished, no apparent distress Head: Normocephalic, atraumatic Eyes: Normal inspection, PERRL, EOMI ENT: Normal ENT inspection, hearing grossly normal, pharynx normal Neck: Supple, no JVD, trachea midline Respiratory/Chest: +Decreased breath sounds throughout. Wheezing. On BiPAP. No respiratory distress Cardiovascular: Regular rate & rhythm, no gallop, no murmur Abdomen/GI: Normal bowel sounds, non-tender, soft Extremities/Musculoskeletal: Normal inspection, no calf tenderness, no pedal edema Neurological/Psych: Alert, normal mood/affect, oriented x 3 Skin: Normal color, warm/dry, no rash Diagnostics Laboratory Results Results Past 24 Hours Test 01/08/17 13:54 01/08/17 14:42 01/08/17 16:01 01/08/17 17:09 Range/Units White Blood Count 12.17 4.8-10.8 K/uL Red Blood Count 3.76 4.7-6.1 M/uL Hemoglobin 12.4 14.0-18.0 g/dL Hematocrit 37.2 42-52 % Mean Corpuscular Volume 98.9 80-100 fL Mean Corpuscular Hemoglobin 33.0 25-34 pg Mean Corpuscular Hemoglobin Concent 33.3 32-36 g/dl Platelet Count 246 130-400 K/uL Mean Platelet Volume 11.6 7.4-10.4 fL Neutrophils (%) (Auto) 77.2 % Lymphocytes (%) (Auto) 9.5 % Monocytes (%) (Auto) 7.1 % Eosinophils (%) (Auto) 5.8 % Basophils (%) (Auto) 0.2 % Neutrophils # (Auto) 9.38 1.4-6.5 K/uL Lymphocytes # (Auto) 1.16 1.2-3.4 K/uL Monocytes # (Auto) 0.87 0.11-0.59 K/uL Eosinophils # (Auto) 0.71 0-0.5 K/uL Basophils # (Auto) 0.02 0-0.2 K/uL RDW Standard Deviation 60.3 36.4-46.3 fL RDW Coefficient of Variation 16.6 11.5-14.5 % Immature Granulocyte % (Auto) 0.2 % Immature Granulocyte # (Auto) 0.03 0.00-0.02 K/uL Venous Blood pH 7.32 7.36-7.41 Venous Blood Partial Pressure CO2 61 38.0-50.0 mmHg Venous Blood Partial Pressure O2 40 mmHg Venous Blood HCO3 30 mmol/L Venous Blood Oxygen Saturation 68.4 % Venous Blood Base Excess 2.8 mEq/L Lactic Acid Level 1.6 0.4-2.0 mmol/L Prothrombin Time 42.8 9.0-12.0 SECONDS Prothromb Time International Ratio 3.8 0.9-1.1 Activated Partial Thromboplast Time 77.0 21.0-31.0 SECONDS Partial Thromboplastin Ratio 3.0 Sodium Level 138 136-145 mmol/L Potassium Level 4.1 3.5-5.1 mmol/L Chloride Level 102 98-107 mmol/L Carbon Dioxide Level 28 21-32 mmol/L Anion Gap 8.0 3-11 mmol/L Blood Urea Nitrogen 29 7-18 mg/dl Creatinine 1.90 0.60-1.40 mg/dl Est Creatinine Clear Calc Drug Dose 45.1 ml/min Estimated GFR () 42.5 Estimated GFR (Non- 36.7 BUN/Creatinine Ratio 15.4 10-20 Random Glucose 159 70-99 mg/dl Calcium Level 8.4 8.5-10.1 mg/dl Total Bilirubin 0.3 0.2-1 mg/dl Aspartate Amino Transf (AST/SGOT) 9 15-37 U/L Alanine Aminotransferase (ALT/SGPT) 14 12-78 U/L Alkaline Phosphatase 119 45-117 U/L Troponin I < 0.015 0-0.045 ng/ml Total Protein 7.0 6.4-8.2 gm/dl Albumin 3.2 3.4-5.0 gm/dl Globulin 3.8 2.5-4.0 gm/dl Albumin/Globulin Ratio 0.8 0.9-2 Microbiology Results 01/08/17 Blood Culture, Ordered Pending 01/08/17 Blood Culture, Ordered Pending Diagnostic Radiology Reviewed the following studies and agree with interpretation as follows: Patient Name: BISHOP PACK Unit Number: [id number] Dictated: 01/08/171452 Transcribed: 01/08/171452 JRB Printed Date/Time: [~ rep prt dt]/[~ rep prt tm] [~ rep ct labl] - [~ rep ct ivnm] [facility] [place] [place] [address] Dictated: 01/08/171452 Transcribed: 01/08/171452 JRB Printed Date/Time: [~ rep prt dt]/[~ rep prt tm] [~ rep ct labl] - [~ rep ct ivnm] Patient: BISHOP PACK Address1: [facility] [address] [address] Rec: [id number] Address2: [facility] Acct ID: [id number] [facility] Zip: [place] [address] Date: 1955 Sex: M Room/Bed: Ref Phy: Reza Bowles SC: RASHARD Att Phy: Report #: [id number] Heather Phy: Reza Bowles Test: [id number] Admit Phy: Manufacturing Engineering Professor: WILSON Interpreting Phy: Huang Mckinney D.O. Diagnosis: SHORTNESS OF BREATH Ordering Phy: Gurinder Montalvo M.D. Service Date: 01/08/17 Admit Date: 01/08/17 MNE: DELL CONF: DICTATED BY: Huang Mckinney D.O.]] CC: Wilbur Gurinder Arango M.D. Endcc: [~ rep ct add3]] CHEST ONE VIEW PORTABLE HISTORY: 61 years-old Male SOB, diffuse wheezing, decreased BS acute shortness of breath and wheezing COMPARISON: Chest radiograph 08/10/2016 TECHNIQUE: Portable upright AP view of the chest FINDINGS: Cardiac silhouette is again mildly enlarged. There is atherosclerosis of the aorta. No pneumothorax or large pleural effusion. There is mild pulmonary vascular congestion. Patchy alveolar opacities of the left mid lung and left lung base are noted. The bones are grossly intact. IMPRESSION: 1. Patchy alveolar opacities of the left midlung and left lung base are suspicious for pneumonia. 2. Mild cardiomegaly without overt pulmonary edema. The above report was generated using voice recognition software. It may contain grammatical, syntax or spelling errors. Electronically signed by: Isaac Mckinney M.D. 01/08/2017 2:54 PM Dictated Date/Time: 01/08/2017 2:53 PM The status of this report is Signed. Draft = Not yet reviewed or approved by Radiologist. Signed = Reviewed and approved by Radiologist. <AttendingPhy></AttendingPhy> <FamilyPhy>[facility]</FamilyPhy> < PrimaryPhy>[facility]</PrimaryPhy> <UnitNumber>[id number]</UnitNumber> <VisitNumber>[id number]</VisitNumber> <PatientName>BISHOP PACK</PatientName > <DateOfBirth>1955</DateOfBirth> <Location>[facility]</Location> <ServiceDate> 01/08/17</ServiceDate> <MNE>ESINDI</MNE> <OrderingPhy>Gurinder Montalvo M.D.</ OrderingPhy> <OrderingPhyMNE>f rep ord dr arambula</OrderingPhyMNE> <DictatingPhyMNE> f rep dict dr arambula</DictatingPhyMNE> <CCListMNE>f rep ct tyesha</CCListMNE> < AdmittingPhyMNE>f pt admit dr arambula</AdmittingPhyMNE> <AttendingPhyMNE>f pt attend dr arambula</AttendingPhyMNE> <ConsultingPhyMNE>f pt consult dr arambula</ConsultingPhyMNE> <FamilyPhyMNE>f pt fam dr arambula</FamilyPhyMNE> <OtherPhyMNE>f pt other dr arambula</OtherPhyMNE> < PrimaryPhyMNE>f pt prim care dr arambula</PrimaryPhyMNE> <ReferringPhyMNE>f pt referring dr arambula</ReferringPhyMNE> EKG Reviewed EKG and agree with interpretation as follows: 75 bpm, NSR Impression Assessment and Plan 61 y/o male with a history of HTN, HLD, CVA, epilepsy, anxiety, depression, mood disorder, migraines, RLS, hypothyroidism and BPH who presented to the ED on 01/08 with shortness of breath. Pt afebrile on arrival, HR and BP stable. O2 sat 85% on room air. Does not typically wear oxygen. Initially placed on NC. VBG showed pH of 7.32 and pCO2 of 61, pt then placed on BiPAP. CXR shows PNA. EKG no ischemic changes. WBC 12.17. Lactic acid negative. Creatinine elevated above baseline at 1.9. Troponin negative. INR 3.8. LLL PNA, HCAP, acute respiratory failure with hypoxemia and hypercapnia -Admit to telemetry -Continue BiPAP for now -Blood cultures pending. Obtained after first doses of abx given -Sputum culture if able to obtain -Vancomycin, azithromycin 500 mg IV qd and cefepime 2 gm IV q12h. Cover HCAP as pt lives at [facility] -DuoNebs QIDR and q2h prn SOB/wheezing Left sided chest pain -Trend trop q8h x 3, first troponin negative -EKG q am and prn chest pain LORNE on CKD stage III--baseline creatinine 1.2-1.4 -Creatinine 1.9 on admission -NSS at 125 cc/hr -Hold lisinopril and HCTZ for now Supratherapeutic INR--per [facility] records, pt is on warfarin d/t h/o CVA -INR 3.8 on admission -Hold warfarin 3 mg PO qd -Continue to monitor HTN, HLD, h/o CVA--BP low normal -Lisinopril and HCTZ held as above -Continue Coreg 25 mg PO BID. Hold if SBP less than 100 or HR less than 60 -Continue ASA, atorvastatin 20 mg PO hs, hydralazine 50 mg PO QID -Cover with hydralazine 10 mg IV q6h prn SBP >180 Epilepsy--no seizures since 2014 -Continue Vimpat 200 mg PO BID, Lamictal 225 mg PO BID, and Klonopin 0.5 mg PO BID Anxiety, depression, mood disorder -Continue duloxetine 90 mg PO qd and Seroquel 25 mg PO qam and 75 mg PO hs Thalamic pain syndrome -Continue gabapentin 600 mg PO TID RLS--[facility] records report Parkinson's, but per outpt neurology records, pt is taking Sinemet due to RLS -Continue Sinemet 10/100 mg PO q6h Hypothyroidism -Continue Synthroid 25 mcg PO qd BPH -Continue Flomax 0.4 mg PO hs DVT prophylaxis -Warfarin supratherapeutic -MATTHEW hose and SCDs Code Status -Level V, DO NOT RESUSCITATE -Pt listed as full code on [facility] records, but when asked pt clearly wishes to be DNR. He is alert and oriented x 3, and of sound mind Resident Physician Supervision Note: Pt seen/evaluated independently. I discussed the case with the PA and agree with the findings and plan as documented in the note. Any exceptions or clarifications are listed here: 61 y/o NH resident , Hx CVA, seizures, mood disorder - presenting with SOB - hypercapnic, hypoxic in ER on ABG - dense RLL PNM on CXR - pt is a poor historian - may suffer from cognitive issues and requested DC despite needing Bipap OE AAO x 2 S1,2 R No air entry R lung NT, ND No CCE No acute deficits present P: Due to presumed severe PNM and admission from [place] we will treat for HCAP - unclear if hypercapnea is chronic and not previously diagnosed - may need pulm eval prior to DC Pt takes Coumadin - presumed due o CVA although this is not specified in his chart Cont anticonvulsants as ordered Documented By: Daryl Sutherland Level of Care Telemetry Advanced Directives Existing Living Will: No Existing Power of Clipper And Turner: No Resuscitation Status FULL RESUSCITATION VTE Prophylaxis VTE Risk Assessment Done? Y/N: Yes Risk Level: Moderate Given or contraindicated: Chani Stockings, SCD's
[2017-01-08] MEDS ORDERED: ALBUT/IPRATROP 3MG/0.5MG NEB 3 ML VIAL INH PRN (18:30)
[2017-01-08] MEDS ORDERED: VANCOMYCIN CONSULT ACTIVE PRN (18:45)
[2017-01-08] MEDS ORDERED: VANCOMYCIN INJ 2,500 MG in SODIUM CHLORIDE 0.9% 500ML 500 ML IV ONE (18:45)
[2017-01-08 19:00] VITALS: O2SAT 93
[2017-01-08] MEDS: ALBUT/IPRATROP 3MG/0.5MG NEB 3 ML VIAL INH SCH (19:04)
[2017-01-08 19:07] VITALS: BP 108/71; PULSE 72; TEMP 36.6; O2SAT 97
[2017-01-08] MEDS: SODIUM CHLORIDE 0.9% 1000ML 1,000 ML IV SCH (19:20)
[2017-01-08] MEDS ORDERED: ASPI81TA28 PO (19:30)
[2017-01-08] MEDS ORDERED: TRAM-10 PO (19:35)
[2017-01-08] MEDS ORDERED: LACOSAMIDE 50 MG TAB PO SCH (21:00)
[2017-01-08] MEDS: DOCUSATE SODIUM 100 MG CAP PO SCH (21:00)
--- NOTE | 2017-01-08 21:00 | Pharmacy Progress Note ---
Pharmacy Antibiotic Consult Date of Service: Jan 08, 2017. Pharmacy Dosing Scope Pharmacy is consulted to initiate vancomycin IV dosing therapy, order appropriate labs and adjust drug dose/frequency. Subjective The patient is a 61 year old male admitted on Jan 08, 2017 at 17:55. Objective Height (Feet): 5 Height (Inches): 6.00 Weight (Kilograms): 104.600 Lab Results (24hrs): Test 01/08/17 13:54 01/08/17 14:42 01/08/17 16:01 White Blood Count 12.17 K/uL (4.8-10.8) Red Blood Count 3.76 M/uL (4.7-6.1) Hemoglobin 12.4 g/dL (14.0-18.0) Hematocrit 37.2 % (42-52) Mean Corpuscular Volume 98.9 fL (80-100) Mean Corpuscular Hemoglobin 33.0 pg (25-34) Mean Corpuscular Hemoglobin Concent 33.3 g/dl (32-36) Platelet Count 246 K/uL (130-400) Mean Platelet Volume 11.6 fL (7.4-10.4) Neutrophils (%) (Auto) 77.2 % Lymphocytes (%) (Auto) 9.5 % Monocytes (%) (Auto) 7.1 % Eosinophils (%) (Auto) 5.8 % Basophils (%) (Auto) 0.2 % Neutrophils # (Auto) 9.38 K/uL (1.4-6.5) Lymphocytes # (Auto) 1.16 K/uL (1.2-3.4) Monocytes # (Auto) 0.87 K/uL (0.11-0.59) Eosinophils # (Auto) 0.71 K/uL (0-0.5) Basophils # (Auto) 0.02 K/uL (0-0.2) RDW Standard Deviation 60.3 fL (36.4-46.3) RDW Coefficient of Variation 16.6 % (11.5-14.5) Immature Granulocyte % (Auto) 0.2 % Immature Granulocyte # (Auto) 0.03 K/uL (0.00-0.02) Venous Blood pH 7.32 (7.36-7.41) Venous Blood Partial Pressure CO2 61 mmHg (38.0-50.0) Venous Blood Partial Pressure O2 40 mmHg Venous Blood HCO3 30 mmol/L Venous Blood Oxygen Saturation 68.4 % Venous Blood Base Excess 2.8 mEq/L Lactic Acid Level 1.6 mmol/L (0.4-2.0) Prothrombin Time 42.8 SECONDS (9.0-12.0) Prothromb Time International Ratio 3.8 (0.9-1.1) Activated Partial Thromboplast Time 77.0 SECONDS (21.0-31.0) Partial Thromboplastin Ratio 3.0 Sodium Level 138 mmol/L (136-145) Potassium Level 4.1 mmol/L (3.5-5.1) Chloride Level 102 mmol/L (98-107) Carbon Dioxide Level 28 mmol/L (21-32) Anion Gap 8.0 mmol/L (3-11) Blood Urea Nitrogen 29 mg/dl (7-18) Creatinine 1.90 mg/dl (0.60-1.40) Est Creatinine Clear Calc Drug Dose 45.1 ml/min Estimated GFR () 42.5 Estimated GFR (Non- 36.7 BUN/Creatinine Ratio 15.4 (10-20) Random Glucose 159 mg/dl (70-99) Calcium Level 8.4 mg/dl (8.5-10.1) Total Bilirubin 0.3 mg/dl (0.2-1) Aspartate Amino Transf (AST/SGOT) 9 U/L (15-37) Alanine Aminotransferase (ALT/SGPT) 14 U/L (12-78) Alkaline Phosphatase 119 U/L (45-117) Troponin I < 0.015 ng/ml (0-0.045) Total Protein 7.0 gm/dl (6.4-8.2) Albumin 3.2 gm/dl (3.4-5.0) Globulin 3.8 gm/dl (2.5-4.0) Albumin/Globulin Ratio 0.8 (0.9-2) Hepatitis C Antibody Screen NEG (NEG) Assessment & Plan Patient started on vancomycin, cefepime, and azithromycin (not consult) for possible PNA. Vancomycin: * Pt received LD of vancomycin 2500 mg (~24 mg/kg) iv x 1 * Will start MD of vancomycin 1250 mg (~12 mg/kg) iv q 24 to achieve an estimated trough ~15-20 mcg/ml (goal for PNA) * Estimated kinetics: t1/2~17 hrs, ke~0.04 hr-1 * Will plan to obtain trough prior to the 1800 dose on 01/11 to ensure therapeutic (note this will be before steady state, however patient with elevated BMI therefore at risk of increased drug accumulation) Pharmacy will continue to follow and will adjust dose/frequency as necessary. Thank you
[2017-01-08] MEDS: QUETIAPINE FUMARATE 25 MG TAB PO SCH (21:18)
[2017-01-08] MEDS: LACOSAMIDE 50 MG TAB PO SCH (21:18)
[2017-01-08] MEDS: GABAPENTIN 600 MG TAB PO SCH (21:19)
[2017-01-08] MEDS: SENNA 8.6 MG TAB PO SCH (21:19)
[2017-01-08] MEDS: ATORVASTATIN 20 MG TAB PO SCH (21:19)
[2017-01-08] MEDS: CARVEDILOL 25 MG TAB PO SCH (21:19)
[2017-01-08] MEDS ORDERED: DOCU-94 PO (21:22)
[2017-01-08] MEDS ORDERED: BISA10SU3 PR (21:32)
[2017-01-08] MEDS: CLONAZEPAM 0.5 MG TAB PO SCH (21:44)
[2017-01-08] MEDS ORDERED: HEPARIN SOD 5000 UNIT/0.5 ML CARP SQ SCH (22:00)
[2017-01-08] MEDS ORDERED: CARBIDOPA/LEVODOPA 10/100MG TAB PO SCH (22:00)
[2017-01-08] MEDS ORDERED: APR50 PO (22:34)
[2017-01-08] MEDS ORDERED: LISI40TA PO (22:35)
[2017-01-08] MEDS ORDERED: ATOR-22 PO (22:38)
[2017-01-08] MEDS ORDERED: CLON0.5T3 PO (22:39)
[2017-01-08] MEDS ORDERED: DULO60CA44 PO (22:42)
[2017-01-08] MEDS ORDERED: LACO200T PO (22:44)
[2017-01-08] MEDS ORDERED: CARB-157 PO (22:44)
[2017-01-08] MEDS ORDERED: TAMS0.4C38 PO (22:46)
[2017-01-08] MEDS ORDERED: ACET325T96 PO (22:46)
[2017-01-08] MEDS: CEFEPIME IV 2,000 MG in DEXTROSE 5% 100ML 100 ML IV SCH (22:57)
[2017-01-08 23:15] LABS: URINE APPEARANCE CLEAR (CLEAR); URINE BILIRUBIN NEG (NEG); URINE COLOR YELLOW; URINE NITRITE NEG (NEG); URINE SPECIFIC GRAVITY 1.022 (1.000-1.030); UROBILINOGEN NEG (NEG)
[2017-01-08] MEDS ORDERED: NURSING VERBAL MED ORDER ONE (23:15)
[2017-01-08 23:27] LABS: MANUAL MICROSCOPIC REQUIRED? NO; REVIEW REQ? NO
[2017-01-08 23:33] VITALS: BP 93/56; PULSE 76; TEMP 36.5; O2SAT 92
[2017-01-09] VITALS (10 sets, daily range): BP systolic 109–127; BP diastolic 64–77; PULSE 78–86; TEMP 36–37; O2SAT 88–97
[2017-01-09] MEDS: LEVOTHYROXINE 25 MCG TAB PO SCH (06:00)
[2017-01-09] MEDS: CARBIDOPA/LEVODOPA 10/100MG TAB PO SCH ×5 (06:24→23:35)
[2017-01-09] MEDS: SODIUM CHLORIDE 0.9% 1000ML 1,000 ML IV SCH (06:25)
[2017-01-09] MEDS: ALBUT/IPRATROP 3MG/0.5MG NEB 3 ML VIAL INH SCH ×4 (07:19→19:52)
[2017-01-09 08:18] LABS: HEMATOCRIT 37.1 % (42-52); MEAN CELL VOLUME 97.9 fL (80-100); MEAN CORPUSCULAR HEMOGLOBIN 32.7 pg (25-34); MEAN CORPUSCULAR HGB CONC 33.4 g/dl (32-36); MEAN PLATELET VOLUME 10.3 fL (7.4-10.4); PLATELET COUNT 221 K/uL (130-400); RED BLOOD COUNT 3.79 M/uL (4.7-6.1); WHITE BLOOD COUNT 12.45 K/uL (4.8-10.8)
[2017-01-09] MEDS: CEFEPIME IV 2,000 MG in DEXTROSE 5% 100ML 100 ML IV SCH ×2 (08:33→20:09)
[2017-01-09 08:34] LABS: INR 3.7 (0.9-1.1); PROTHROMBIN TIME (PATIENT) 42.1 SECONDS (9.0-12.0)
[2017-01-09] MEDS: LACOSAMIDE 50 MG TAB PO SCH ×2 (08:34→20:16)
[2017-01-09] MEDS: SENNA 8.6 MG TAB PO SCH ×2 (08:35→20:15)
[2017-01-09] MEDS: GABAPENTIN 600 MG TAB PO SCH ×3 (08:35→20:17)
[2017-01-09] MEDS: DOCUSATE SODIUM 100 MG CAP PO SCH ×2 (08:37→20:13)
[2017-01-09] MEDS: CARVEDILOL 25 MG TAB PO SCH ×2 (08:37→20:14)
[2017-01-09] MEDS: TAMSULOSIN HCL 0.4 MG CAP PO SCH (08:38)
[2017-01-09] MEDS: DULOXETINE (CYMBALTA) 30 MG CAP PO SCH (08:39)
[2017-01-09] MEDS: POTASSIUM CHLORIDE 10 MEQ TABCR PO SCH (08:39)
[2017-01-09] MEDS: ASPIRIN 81 MG ECTAB PO SCH (08:40)
[2017-01-09] MEDS: DULOXETINE HCL 60 MG CAP PO SCH (08:40)
[2017-01-09] MEDS: CLONAZEPAM 0.5 MG TAB PO SCH ×2 (08:44→20:24)
[2017-01-09 08:50] LABS: BUN/CREATININE RATIO 15.3 (10-20); CALCIUM 8.3 mg/dl (8.5-10.1); CREATININE 1.5 mg/dl (0.60-1.40); POTASSIUM 4.2 mmol/L (3.5-5.1)
[2017-01-09] MEDS ORDERED: MAGNESIUM HYDROXIDE SUSP 30 ML UDC PO ONE (13:15)
[2017-01-09] MEDS: AZITHROMYCIN IV 500 MG in DEXTROSE 5% 250ML 250 ML IV SCH (14:13)
[2017-01-09] MEDS: QUETIAPINE FUMARATE 25 MG TAB PO SCH ×2 (14:16→20:19)
[2017-01-09 17:43] LABS: INFLUENZA A PCR Neg for Influ A (NEG); INFLUENZA B PCR Neg for Influ B (NEG)
--- NOTE | 2017-01-09 17:59 | Progress Note ---
Subjective Date of Service: Jan 09, 2017. Subjective Pt evaluation today including: conversation w/ patient, physical exam, chart review, lab review, review of studies (cxr), conversation w/ institutional nutrition consultant (speech) , review of inpatient medication list Pain: denies PO Intake: wants diet changed to regular (getting nectar thick right now) tele stable overnight pt feels good he states "I want to go home" a few minutes later he asks when he can go to [place] he apparently doesn't like [place] cough/breathing improved but still with SALAZAR Problem List Medical Problems: (1) Acute respiratory failure with hypoxemia Status: Acute (2) Change in mental status Status: Acute (3) CVA (cerebral vascular accident) Status: Acute (4) Dehydration Status: Acute (5) Dehydration Status: Acute (6) Hand laceration Status: Acute (7) Headache Status: Acute (8) Hypercapnia Status: Acute (9) Hypokalemia Status: Acute (10) Idiopathic ischemic cerebrovascular accident (CVA) in adult Status: Acute (11) Pneumonia Status: Acute (12) Pneumonia Status: Acute (13) Right arm pain Status: Acute (14) Seizure Status: Acute (15) SOB (shortness of breath) Status: Acute (16) Stroke Status: Acute Review of Systems Constitutional: No fever Respiratory: + dyspnea on exertion, No dyspnea at rest Cardiac: No chest pain Abdomen: No pain Objective Vital Signs Date Time Temp Pulse Resp B/P (MAP) Pulse Ox O2 Delivery O2 Flow Rate FiO2 01/09/17 16:03 37.0 82 117/69 (85) 91 Nasal Cannula 3.0 01/09/17 16:00 Nasal Cannula 3.0 01/09/17 15:14 84 18 94 Room Air 01/09/17 12:18 36.0 18 125/72 (89) 94 Nasal Cannula 3.0 01/09/17 12:00 Nasal Cannula 3.0 01/09/17 11:15 86 18 94 Nasal Cannula 3.0 01/09/17 08:00 Nasal Cannula 3.0 01/09/17 07:53 36.4 80 20 109/66 (80) 95 Room Air 01/09/17 07:19 80 18 95 Nasal Cannula 3.0 01/09/17 04:05 36.5 78 20 117/64 (81) 92 Nasal Cannula 3.0 01/09/17 04:05 88 Room Air 01/09/17 04:00 Nasal Cannula 3.0 01/09/17 00:01 Nasal Cannula 3.0 01/08/17 23:33 36.5 76 21 93/56 (68) 92 Nasal Cannula 3.0 01/08/17 19:07 36.6 72 18 108/71 (83) 97 Nasal Cannula 5.0 01/08/17 19:00 93 Nasal Cannula 3.0 01/08/17 18:28 79 16 95/51 93 BiPAP 40 01/08/17 17:58 80 Physical Exam General Appearance: + mild distress (with moving in bed) ENT: pharynx normal Neck: no JVD Respiratory/Chest: no respiratory distress, no accessory muscle use, + rales ( fine - left base), + wheezing (b/l - mild) Cardiovascular: regular rate, rhythm, no gallop Abdomen: normal bowel sounds, non tender, soft, no organomegaly Extremities: no pedal edema Neurologic/Psychiatric: alert, + motor weakness (right sided hemiparesis ) Laboratory Results Last 24 Hours Test 01/08/17 22:35 01/09/17 00:18 01/09/17 08:05 01/09/17 14:40 Urine Color YELLOW Urine Appearance CLEAR Urine pH 5.0 Urine Specific [place] 1.022 Urine Protein NEG Urine Glucose (UA) 2+ Urine Ketones NEG Urine Occult Blood NEG Urine Nitrite NEG Urine Bilirubin NEG Urine Urobilinogen NEG Urine Leukocyte Esterase NEG Troponin I < 0.015 ng/ml < 0.015 ng/ml White Blood Count 12.45 K/uL Red Blood Count 3.79 M/uL Hemoglobin 12.4 g/dL Hematocrit 37.1 % Mean Corpuscular Volume 97.9 fL Mean Corpuscular Hemoglobin 32.7 pg Mean Corpuscular Hemoglobin Concent 33.4 g/dl RDW Standard Deviation 57.0 fL RDW Coefficient of Variation 15.8 % Platelet Count 221 K/uL Mean Platelet Volume 10.3 fL Prothrombin Time 42.1 SECONDS Prothromb Time International Ratio 3.7 Sodium Level 138 mmol/L Potassium Level 4.2 mmol/L Chloride Level 105 mmol/L Carbon Dioxide Level 27 mmol/L Anion Gap 6.0 mmol/L Blood Urea Nitrogen 23 mg/dl Creatinine 1.50 mg/dl Est Creatinine Clear Calc Drug Dose 53.7 ml/min Estimated GFR () 56.6 Estimated GFR (Non- 48.8 BUN/Creatinine Ratio 15.3 Random Glucose 137 mg/dl Calcium Level 8.3 mg/dl Influenza Type A (RT-PCR) Neg for Influ A Influenza Type B (RT-PCR) Neg for Influ B Assessment and Plan 61yo male - 1. acute hypercarbic respiratory failure - improved s/p BIPAP overnight Now in room air 2. left-sided pneumonia - gram negative vs aspiration etiology very likely. MRSA doubtful. Cont current antibiotic regimen although consider stopping MRSA coverage if MRSA swab negative Cont nebs and supportive care Check flu swab 3. ?dysphagia - speech consult 4. h/o stroke with resulting right-sided hemiparesis - noted 5. supratherapeutic INR - cont to hold coumadin, INR am 6. seizure disorder - continue outpatient meds; no report of seizure 7. RLS - sinemet; consider checking Fe studies 8. CKD stage 3 with superimposed LORNE (acute kidney injury) - latter resolved, Cr now at baseline. d/c IVF 9. BPH - flomax 10. hypothyroidism - cont synthroid; TSH compensated. 11. HTN - controlled with current meds 12. reactive bronchitis - 2nd to #1 - consider steroids former smoker so underlying COPD?? 13. PT and OT evals Continued [facility] stay due to: multiple IV medications needed Discharge planning: group home facility
[2017-01-09] MEDS ORDERED: VANCOMYCIN INJ 1,250 MG in SODIUM CHLORIDE 0.9% 250ML 250 ML IV SCH (18:00)
[2017-01-09] MEDS: METHYLPREDNISOLONE IV 40 MG in SYRINGE 0 ML IV SCH (19:01)
[2017-01-09] MEDS: ATORVASTATIN 20 MG TAB PO SCH (20:17)
[2017-01-10] VITALS (17 sets, daily range): BP systolic 132–210; BP diastolic 81–133; PULSE 68–81; TEMP 36.7–37; O2SAT 84–98
[2017-01-10] MEDS: LEVOTHYROXINE 25 MCG TAB PO SCH (06:31)
[2017-01-10] MEDS: METHYLPREDNISOLONE IV 40 MG in SYRINGE 0 ML IV SCH ×2 (06:31→18:09)
[2017-01-10] MEDS: CARBIDOPA/LEVODOPA 10/100MG TAB PO SCH ×3 (06:31→18:09)
[2017-01-10 07:22] LABS: INR 2.4 (0.9-1.1); PROTHROMBIN TIME (PATIENT) 26.6 SECONDS (9.0-12.0)
[2017-01-10] MEDS: ALBUT/IPRATROP 3MG/0.5MG NEB 3 ML VIAL INH SCH ×4 (07:22→19:30)
[2017-01-10 07:38] LABS: BUN/CREATININE RATIO 19.4 (10-20); CALCIUM 8.2 mg/dl (8.5-10.1); CREATININE 1.3 mg/dl (0.60-1.40); POTASSIUM 4.3 mmol/L (3.5-5.1)
[2017-01-10] MEDS: POTASSIUM CHLORIDE 10 MEQ TABCR PO SCH (08:37)
[2017-01-10] MEDS: CARVEDILOL 25 MG TAB PO SCH ×2 (08:37→20:42)
[2017-01-10] MEDS: LACOSAMIDE 50 MG TAB PO SCH ×2 (08:38→20:39)
[2017-01-10] MEDS: ASPIRIN 81 MG ECTAB PO SCH (08:38)
[2017-01-10] MEDS: DULOXETINE (CYMBALTA) 30 MG CAP PO SCH (08:39)
[2017-01-10] MEDS: GABAPENTIN 600 MG TAB PO SCH ×3 (08:39→20:38)
[2017-01-10] MEDS: DULOXETINE HCL 60 MG CAP PO SCH (08:39)
[2017-01-10] MEDS: SENNA 8.6 MG TAB PO SCH ×2 (08:40→20:37)
[2017-01-10] MEDS: TAMSULOSIN HCL 0.4 MG CAP PO SCH (08:40)
[2017-01-10] MEDS: CEFEPIME IV 2,000 MG in DEXTROSE 5% 100ML 100 ML IV SCH ×2 (08:40→20:53)
[2017-01-10] MEDS: DOCUSATE SODIUM 100 MG CAP PO SCH ×2 (08:40→20:40)
[2017-01-10] MEDS: CLONAZEPAM 0.5 MG TAB PO SCH ×2 (08:47→20:36)
[2017-01-10] MEDS: QUETIAPINE FUMARATE 25 MG TAB PO SCH ×2 (12:32→20:39)
[2017-01-10] MEDS: AZITHROMYCIN IV 500 MG in DEXTROSE 5% 250ML 250 ML IV SCH (14:06)
[2017-01-10] MEDS: WARFARIN SOD 3 MG TAB PO SCH (16:48)
--- NOTE | 2017-01-10 18:56 | Progress Note ---
Subjective Date of Service: Jan 10, 2017. Subjective Pt evaluation today including: conversation w/ patient, physical exam, chart review, lab review, review of inpatient medication list Pain: denies PO Intake: normal Voiding: no voiding problems tele stable overnight pt asks "doc, when am I leaving?" he reports "feeling good" he has significant dyspnea with putting on his socks, moving around, etc -- reports "that's how it always is" (I observed him doing these tasks with Occupational therapy) no issues per staff Problem List Medical Problems: (1) Acute respiratory failure with hypoxemia Status: Acute (2) Change in mental status Status: Acute (3) CVA (cerebral vascular accident) Status: Acute (4) Dehydration Status: Acute (5) Dehydration Status: Acute (6) Hand laceration Status: Acute (7) Headache Status: Acute (8) Hypercapnia Status: Acute (9) Hypokalemia Status: Acute (10) Idiopathic ischemic cerebrovascular accident (CVA) in adult Status: Acute (11) Pneumonia Status: Acute (12) Pneumonia Status: Acute (13) Right arm pain Status: Acute (14) Seizure Status: Acute (15) SOB (shortness of breath) Status: Acute (16) Stroke Status: Acute Review of Systems Respiratory: + cough, + wheezing, + dyspnea on exertion, No sputum Cardiac: No chest pain, No orthopnea Abdomen: No pain Objective Vital Signs Date Time Temp Pulse Resp B/P (MAP) Pulse Ox O2 Delivery O2 Flow Rate FiO2 01/10/17 18:09 37.0 72 20 95 3.0 01/10/17 18:03 72 20 169/107 (127) 95 Room Air 01/10/17 16:00 Room Air 01/10/17 15:30 75 18 94 Room Air 01/10/17 15:27 37.0 81 19 158/89 (112) 93 Room Air 01/10/17 12:01 36.7 76 20 153/86 (108) 94 Room Air 01/10/17 12:00 Room Air 01/10/17 11:18 77 20 94 Room Air 01/10/17 08:00 Room Air 01/10/17 07:42 36.9 71 18 146/81 (102) 98 Room Air 01/10/17 07:22 79 20 84 Room Air 01/10/17 04:40 37.0 68 20 132/82 (99) 96 Nasal Cannula 3.0 01/10/17 04:00 Nasal Cannula 3.0 01/09/17 23:59 Nasal Cannula 3.0 01/09/17 23:19 36.6 80 18 127/77 (94) 95 Nasal Cannula 3.0 01/09/17 20:00 Nasal Cannula 3.0 01/09/17 19:54 79 18 97 Room Air 01/09/17 19:05 36.9 78 16 116/69 (85) 96 Nasal Cannula 3.0 Physical Exam General Appearance: no apparent distress, + pertinent finding (but with activity he has dyspnea ) ENT: pharynx normal (MMM) Neck: no JVD Respiratory/Chest: no respiratory distress, no accessory muscle use, + crackles (bases - improved), + pertinent finding (airation improved; no significant wheeze today; but again has tachypnea and increased work of breathing with activity ) Cardiovascular: regular rate, rhythm, no gallop, no murmur Abdomen: normal bowel sounds, non tender, soft, no organomegaly Extremities: no pedal edema Neurologic/Psychiatric: alert, + motor weakness (right arm/leg - 4/5 strength; contracture right arm and mildly in right leg) Laboratory Results Last 24 Hours Test 01/10/17 06:45 Prothrombin Time 26.6 SECONDS Prothromb Time International Ratio 2.4 Sodium Level 143 mmol/L Potassium Level 4.3 mmol/L Chloride Level 108 mmol/L Carbon Dioxide Level 29 mmol/L Anion Gap 6.0 mmol/L Blood Urea Nitrogen 25 mg/dl Creatinine 1.30 mg/dl Est Creatinine Clear Calc Drug Dose 62.2 ml/min Estimated GFR () 67.3 Estimated GFR (Non- 58.1 BUN/Creatinine Ratio 19.4 Random Glucose 114 mg/dl Calcium Level 8.2 mg/dl Assessment and Plan 61yo male - 1. acute hypercarbic respiratory failure - resolved. 2. left-sided pneumonia - gram negative vs aspiration etiology very likely. MRSA doubtful. Flu test negative. stop vanco - he has had very fast clinical response and MRSA negative. Cont cefepime for gram negative coverage; cont zithromax for atypical coverage. Day # 3 of antibiotics. Plan 7 days in total. Could consider transitioning to levaquin orally in the next 1-2 days. If strong concern about aspiration would need flagyl with the levaquin. 3. ?dysphagia - speech consult appreciated; passed swallow evaluation. No change in diet. 4. h/o stroke with resulting right-sided hemiparesis - noted; continue asa/ coumadin for secondary stroke prevention. 5. supratherapeutic INR - resolved; resume coumadin at previous dose. INR daily. 6. seizure disorder - continue outpatient meds; no report of seizure 7. RLS - sinemet; consider checking Fe studies 8. CKD stage 3 with superimposed LORNE (acute kidney injury) - latter resolved, Cr now at baseline. 9. BPH - flomax 10. hypothyroidism - cont synthroid; TSH compensated. 11. HTN - uncontrolled since starting IV steroids; if BPs continue to be high then adjust meds and/or add meds. 12. reactive bronchitis vs underlying COPD - on solumedrol 40mg q12h. improved today. can likely change to PO prednisone tomorrow. 13. PT and OT evals appreciated dispo - SNF can likely d/c next 1-2 days d/c telemetry tx to med/surg Continued [facility] stay due to: multiple IV medications needed Discharge planning: assisted facility
[2017-01-10] MEDS: ATORVASTATIN 20 MG TAB PO SCH (20:41)
[2017-01-10] MEDS: HydrALAZINE HCL 20 MG/ML VIAL IV. PRN (20:47)
[2017-01-10] MEDS ORDERED: ENALAPRILAT IV 2.5 MG in DEXTROSE 5% 25ML 25 ML IV STA (22:14)
[2017-01-10] MEDS ORDERED: NURSING VERBAL MED ORDER ONE (22:15)
--- NOTE | 2017-01-10 22:59 | DIAGNOSTIC IMAGING REPORT ---
HEAD CT NONCONTRAST CT DOSE: 614.27 mGy.cm HISTORY: right side weakness TECHNIQUE: Multiaxial CT images of the head were performed without the use of intravenous contrast. Automated exposure control was utilized for this study. A dose lowering technique was utilized adhering to the principles of ALARA. Comparison: Head CT 08/07/2016. Findings: Moderate mucosal thickening and a retention cyst within the right maxillary sinus. Mild mucosal thickening within the left maxillary sinus. The mastoid air cells are clear. The calvarium and skull base are intact. No mass, hematoma, midline shift, acute infarct. Old left thalamic, left periventricular, and right frontal lobe infarcts. Impression: No significant change compared to the prior study. No acute intracranial abnormality. Old infarcts as described above. Electronically signed by: Brenton Johnson M.D. 01/10/2017 10:57 PM Dictated Date/Time: 01/10/2017 10:53 PM
[2017-01-11] VITALS (11 sets, daily range): BP systolic 168–198; BP diastolic 88–112; PULSE 64–78; TEMP 36.5–37; O2SAT 90–96
[2017-01-11] MEDS ORDERED: OPTIRAY 320 IV PRN (00:45)
[2017-01-11] MEDS: METHYLPREDNISOLONE IV 40 MG in SYRINGE 0 ML IV SCH ×2 (06:26→18:17)
[2017-01-11] MEDS: ALBUT/IPRATROP 3MG/0.5MG NEB 3 ML VIAL INH SCH ×5 (06:57→19:22)
--- NOTE | 2017-01-11 07:23 | DIAGNOSTIC IMAGING REPORT ---
CTA ANGIOGRAPHY OF THE HEAD CLINICAL HISTORY: Cerebrovascular accident. Right-sided weakness. COMPARISON STUDY: MRI of the brain May 12, [address] January 10, 2017. TECHNIQUE: Helical axial images of the head were obtained following uneventful intravenous administration of 116 cc of Optiray 320. A dose lowering technique was utilized adhering to the principles of ALARA. FINDINGS: This exam is mildly compromised by motion artifact. No abrupt vessel cut off is identified on this examination. No intracranial aneurysm is identified. The bilateral M1, M2, A1 and A2 segments are intact. There is mild atherosclerotic plaque of the bilateral cavernous carotids. Posterior circulation is intact. An old right frontal lobe infarct is noted as well as an old periventricular left frontal lobe infarct. There is moderate mucosal thickening of the right maxilla sinus with possible mucous retention cyst. Orbits are unremarkable. No acute intracranial hemorrhage, midline shift or mass effect is present. There are no significant calvarial abnormalities. IMPRESSION: 1. No abrupt vessel cut off or intracranial aneurysm identified. 2. Study mildly compromised by artifact. 3. Old infarcts, as described above. Electronically signed by: Rich Ching M.D. 01/11/2017 7:21 AM Dictated Date/Time: 01/11/2017 7:14 AM
--- NOTE | 2017-01-11 07:34 | DIAGNOSTIC IMAGING REPORT ---
CT ANGIOGRAM OF THE NECK CLINICAL HISTORY: Right-sided weakness. COMPARISON STUDY: No priors. TECHNIQUE: Following the IV administration of 116 of Optiray 320, CT angiogram of the neck was performed from the aortic arch to the skull base. Images are reviewed in the axial, sagittal, and coronal planes. 3-D MIPS images are created and assessed. IV contrast was administered without complication. All measurements were calculated based on NASCET criteria. A dose lowering technique was utilized adhering to the principles of ALARA. The Examination is significantly degraded by motion artifact. CT DOSE: 575.54 mGy.cm FINDINGS: Thoracic aorta: There is atherosclerotic calcification of the thoracic aorta. Visualized portions of the thoracic aorta are normal in caliber. The aortic arch demonstrates standard 3-vessel anatomy. Subclavian arteries: Widely patent bilaterally. Right carotid arterial system: The right common carotid artery is widely patent, as are the right internal and external carotid arteries. There is mild atherosclerotic calcification of the carotid bulb. Left carotid arterial system: The left common carotid artery is widely patent, as are the left internal and external carotid arteries. There is mild atherosclerotic calcification of the carotid bulb. Vertebral arteries: The vertebral arteries are widely patent and codominant in the neck. Intracranial vasculature: The visualized intracranial vessels at the skull base appear widely patent. See report of CT angiogram of the brain performed concurrently for detailed findings. Jugular veins: Widely patent bilaterally. Brain parenchyma: The visualized brain parenchyma the skull base is within normal limits. Lung apices: Advanced emphysematous change is noted. Patchy airspace consolidation is seen at the left apex. Soft tissues: The visualized pharyngeal soft tissues are normal in appearance noting angiographic phase technique. The oropharyngeal airway appears widely patent. The salivary and thyroid glands are normal in appearance. No cervical lymphadenopathy is seen. Skeletal structures: The skeletal structures are osteopenic. The visualized calvarium at the skull base appears intact. The imaged cervical spine is within normal limits. There is moderate mucosal thickening within the right maxillary antrum. Trace mucosal thickening is seen in the left maxillary antrum. Mastoid air cells are clear. IMPRESSION: 1. Unremarkable CT angiogram of the neck. 2. Advanced emphysema. 3. Patchy airspace consolidation is seen in the left upper lobe. Correlate clinically for evidence of an infectious/inflammatory pneumonitis. Electronically signed by: Kelby Partida M.D. 01/11/2017 7:33 AM Dictated Date/Time: 01/11/2017 7:25 AM
[2017-01-11 07:42] LABS: HEMATOCRIT 34.7 % (42-52); MEAN CELL VOLUME 96.1 fL (80-100); MEAN CORPUSCULAR HGB CONC 32.3 g/dl (32-36); MEAN PLATELET VOLUME 10.3 fL (7.4-10.4); PLATELET COUNT 249 K/uL (130-400); RED BLOOD COUNT 3.61 M/uL (4.7-6.1); WHITE BLOOD COUNT 9.77 K/uL (4.8-10.8)
[2017-01-11 07:57] LABS: INR 1.8 (0.9-1.1); PROTHROMBIN TIME (PATIENT) 19.8 SECONDS (9.0-12.0)
[2017-01-11 08:18] LABS: BUN/CREATININE RATIO 20.3 (10-20); CREATININE 1.2 mg/dl (0.60-1.40); POTASSIUM 4.1 mmol/L (3.5-5.1)
[2017-01-11] MEDS: LEVOTHYROXINE 25 MCG TAB PO SCH (08:38)
[2017-01-11] MEDS: DOCUSATE SODIUM 100 MG CAP PO SCH ×2 (08:39→21:53)
[2017-01-11] MEDS: DULOXETINE (CYMBALTA) 30 MG CAP PO SCH (08:40)
[2017-01-11] MEDS: ASPIRIN 81 MG ECTAB PO SCH (08:40)
[2017-01-11] MEDS: DULOXETINE HCL 60 MG CAP PO SCH (08:40)
[2017-01-11] MEDS: CARVEDILOL 25 MG TAB PO SCH ×2 (08:40→21:54)
[2017-01-11] MEDS: TAMSULOSIN HCL 0.4 MG CAP PO SCH (08:40)
[2017-01-11] MEDS: POTASSIUM CHLORIDE 10 MEQ TABCR PO SCH (08:41)
[2017-01-11] MEDS: SENNA 8.6 MG TAB PO SCH ×2 (08:42→21:52)
[2017-01-11] MEDS: GABAPENTIN 600 MG TAB PO SCH ×3 (08:42→21:52)
[2017-01-11] MEDS: CLONAZEPAM 0.5 MG TAB PO SCH ×2 (08:46→21:52)
[2017-01-11] MEDS: LACOSAMIDE 50 MG TAB PO SCH ×2 (10:06→21:52)
[2017-01-11] MEDS: CEFEPIME IV 2,000 MG in DEXTROSE 5% 100ML 100 ML IV SCH ×2 (10:06→21:38)
[2017-01-11] MEDS: CARBIDOPA/LEVODOPA 10/100MG TAB PO SCH ×4 (10:06→18:18)
[2017-01-11] MEDS: QUETIAPINE FUMARATE 25 MG TAB PO SCH ×2 (12:41→21:52)
--- NOTE | 2017-01-11 13:27 | Progress Note ---
Subjective Date of Service: Jan 11, 2017. Subjective As per signout the pt was moved with concern for worsening cva like symptoms, these have resolved and the pt returned to his baseline right hemiplegia the pt is fatigued and wants to sleep but at the same time asks to go back to the [facility] Problem List Medical Problems: (1) Acute respiratory failure with hypoxemia Status: Acute (2) Change in mental status Status: Acute (3) CVA (cerebral vascular accident) Status: Acute (4) Dehydration Status: Acute (5) Dehydration Status: Acute (6) Hand laceration Status: Acute (7) Headache Status: Acute (8) Hypercapnia Status: Acute (9) Hypokalemia Status: Acute (10) Idiopathic ischemic cerebrovascular accident (CVA) in adult Status: Acute (11) Pneumonia Status: Acute (12) Pneumonia Status: Acute (13) Right arm pain Status: Acute (14) Seizure Status: Acute (15) SOB (shortness of breath) Status: Acute (16) Stroke Status: Acute Review of Systems Constitutional: No fever, No chills Eyes: No worsening of vision, No eye pain Respiratory: No cough, No sputum Abdomen: No pain, No nausea Neurologic: No memory loss, No paralysis Psychiatric: No depression symptoms, No anhedonism Objective Vital Signs Date Time Temp Pulse Resp B/P (MAP) Pulse Ox O2 Delivery O2 Flow Rate FiO2 01/11/17 04:00 Room Air 01/11/17 03:45 36.8 71 20 176/88 (117) 93 Room Air 01/11/17 02:01 36.5 68 18 194/105 (134) 90 Room Air 01/11/17 00:15 73 20 193/112 (139) 92 Room Air 01/10/17 23:45 72 20 175/120 (138) 92 Room Air 01/10/17 23:30 73 20 186/121 (142) 91 Room Air 01/10/17 23:15 72 20 168/112 (130) 91 Room Air 01/10/17 23:00 74 20 174/107 (129) 92 Room Air 01/10/17 22:20 210/127 (154) 01/10/17 22:05 69 201/133 (155) 01/10/17 20:45 198/121 (146) 204/118 (146) 01/10/17 19:32 68 16 93 Room Air 01/10/17 18:09 37.0 72 20 95 3.0 01/10/17 18:03 72 20 169/107 (127) 95 Room Air 01/10/17 16:00 Room Air 01/10/17 15:30 75 18 94 Room Air 01/10/17 15:27 37.0 81 19 158/89 (112) 93 Room Air 01/10/17 12:01 36.7 76 20 153/86 (108) 94 Room Air 01/10/17 12:00 Room Air 01/10/17 11:18 77 20 94 Room Air 01/10/17 08:00 Room Air 01/10/17 07:42 36.9 71 18 146/81 (102) 98 Room Air 01/10/17 07:22 79 20 84 Room Air Physical Exam General Appearance: WD/WN, + mild distress Eyes: PERRL, EOMI Respiratory/Chest: chest non-tender, lungs clear, normal breath sounds Cardiovascular: regular rate, rhythm, no murmur Abdomen: normal bowel sounds, non tender, soft Extremities: no pedal edema, no calf tenderness Neurologic/Psychiatric: alert, + pertinent finding (right sided weakness pt states is at his baseline) Laboratory Results Last 24 Hours Test 01/10/17 06:45 01/10/17 22:58 01/11/17 04:44 Prothrombin Time 26.6 SECONDS Prothromb Time International Ratio 2.4 Sodium Level 143 mmol/L Potassium Level 4.3 mmol/L Chloride Level 108 mmol/L Carbon Dioxide Level 29 mmol/L Anion Gap 6.0 mmol/L Blood Urea Nitrogen 25 mg/dl Creatinine 1.30 mg/dl Est Creatinine Clear Calc Drug Dose 62.2 ml/min Estimated GFR () 67.3 Estimated GFR (Non- 58.1 BUN/Creatinine Ratio 19.4 Random Glucose 114 mg/dl Calcium Level 8.2 mg/dl Bedside Glucose 131 mg/dl Assessment and Plan 61yo male with acute on chronic hypercarbic respiratory failure secondary to pneumonia poa, concern for gram negative-had some concern overnight 01/10->6 of neurologic deficit, stroke alert recommended CTA and could not confirm last known well enought to consider TPA tia, certainly could be worsening of baseline due to metabolic stressors, now fatigued but back at baseline acute hypercarbic respiratory failure - resolved with BiPap.reactive bronchitis vs underlying COPD tapering steroids left-sided pneumonia - gram negative, cefepime and zithromax Last dose 01/14 ?dysphagia - speech consult appreciated; passed swallow evaluation. No change in diet. h/o stroke with resulting right-sided hemiparesis - ; continue asa/coumadin for secondary stroke prevention.no new therapy or deficits, CTA does not show any vessel cutoffs coagulopathy, supratherapeutic INR - resolved; resume coumadin at previous dose. INR daily. seizure disorder - clinically stable, continue outpatient meds;klonipin, neurontin, vimpat and lamictal RLS - sinemet; CKD stage 3 with superimposed LORNE (acute kidney injury) - renal dose of meds, at baseline. BPH - no urinary symptoms, flomax hypothyroidism - cont synthroid; PT and OT evals appreciated Continued [facility] stay due to: multiple IV medications needed Discharge planning: [facility] facility
[2017-01-11] MEDS: AZITHROMYCIN IV 500 MG in DEXTROSE 5% 250ML 250 ML IV SCH (14:24)
[2017-01-11] MEDS: WARFARIN SOD 3 MG TAB PO SCH (16:41)
[2017-01-11] MEDS ORDERED: VANCOMYCIN TROUGH ONE (17:30)
[2017-01-11] MEDS: HydrALAZINE HCL 20 MG/ML VIAL IV. PRN (19:18)
[2017-01-11] MEDS: ATORVASTATIN 20 MG TAB PO SCH (21:52)
[2017-01-12] MEDS: CARBIDOPA/LEVODOPA 10/100MG TAB PO SCH ×3 (00:33→11:37)
[2017-01-12 04:20] VITALS: BP 177/90; PULSE 62; TEMP 37; O2SAT 91
[2017-01-12] MEDS: LEVOTHYROXINE 25 MCG TAB PO SCH (05:58)
[2017-01-12 06:20] LABS: INR 1.9 (0.9-1.1); PROTHROMBIN TIME (PATIENT) 20.6 SECONDS (9.0-12.0)
[2017-01-12 07:15] VITALS: PULSE 68; O2SAT 93
[2017-01-12] MEDS: ALBUT/IPRATROP 3MG/0.5MG NEB 3 ML VIAL INH SCH ×2 (07:15→10:59)
[2017-01-12] MEDS ORDERED: IPRASOL4 INH (08:10)
[2017-01-12] MEDS ORDERED: TRAM-10 PO (08:12)
[2017-01-12] MEDS ORDERED: CLON0.5T3 PO (08:12)
[2017-01-12] MEDS ORDERED: LEVO-459 PO (08:13)
[2017-01-12] MEDS ORDERED: DEXAMETHASONE 4 MG TAB PO ONE (08:15)
[2017-01-12] MEDS: CEFEPIME IV 2,000 MG in DEXTROSE 5% 100ML 100 ML IV SCH (08:18)
--- NOTE | 2017-01-12 08:18 | Discharge Instructions ---
Discharge Instructions Date of Service Jan 12, 2017. Admission Reason for Admission: Acute Respiratory Failure With Hypoxia, Pna Discharge Discharge Diagnosis / Problem: copd and pneumonia Discharge Goals Goal(s): Diagnostic testing, Therapeutic intervention Activity Recommendations Activity Level: Assistance Required .61yo male with acute on chronic hypercarbic respiratory failure secondary to pneumonia poa, concern for gram negative-had some concern overnight 01/10->6 of neurologic deficit, stroke alert recommended CTA and could not confirm last known well enought to consider TPA, pt feels he had weakness precipitated after iv solumedrol, this will be stopped and will use tapering decadron as has not had issues with this in the past tia, certainly could be worsening of baseline due to metabolic stressors, now fatigued but back at baseline acute hypercarbic respiratory failure - resolved with BiPap.reactive bronchitis vs underlying COPD tapering steroids will choose dexamethasone left-sided pneumonia - gram negative, cefepime and zithromax will change to levaquin Last dose 01/14 ?dysphagia - speech consult appreciated; passed swallow evaluation. No change in diet. h/o stroke with resulting right-sided hemiparesis - ; continue asa/coumadin for secondary stroke prevention.no new therapy or deficits, CTA does not show any vessel cutoffs coagulopathy, supratherapeutic INR - resolved; resume coumadin at previous dose. INR daily. watch with quinalone use seizure disorder - clinically stable, continue outpatient meds;klonipin, neurontin, vimpat and lamictal RLS - sinemet; CKD stage 3 with superimposed LORNE (acute kidney injury) - renal dose of meds, at baseline. BPH - no urinary symptoms, flomax hypothyroidism - cont synthroid; Additional Information Patient informed of condition: Yes Advance Directives: Yes DNR: Yes Level of Care: Skilled Communicable Disease: Yes Prognosis: Stable Singh Catheter: No Current Hospital Diet Patient's current hospital diet: AHA Diet (Heart Healthy) Discharge Diet Recommended Diet: Regular Diet Pending Studies Studies pending at discharge: no Medical Emergencies . Who to Call and When: Medical Emergencies: If at any time you feel your situation is an emergency, please call 911 immediately. . Non-Emergent Contact Non-Emergency issues call your: Primary Care Provider Call Non-Emergent contact if: temperature is above 101, your pain is unusual for you . . "Provider Documentation" section prepared by Enzo Lo. . Core Measure Problem Core Measures: Stroke Stroke Core Measures Reason no t-PA for Stroke: Treatment not indicated Reason no antithrom by day 2: Treatment provided - N/A Reason no antithrom at D/C: Treatment provided - N/A Reason no statin at D/C: Treatment provided - N/A Reason no anticoag w/a fib: Treatment provided - N/A
[2017-01-12] MEDS: CARVEDILOL 25 MG TAB PO SCH (08:19)
[2017-01-12] MEDS ORDERED: DXM/4 PO (08:19)
[2017-01-12] MEDS: SENNA 8.6 MG TAB PO SCH (08:20)
[2017-01-12] MEDS: LACOSAMIDE 50 MG TAB PO SCH (08:20)
[2017-01-12] MEDS: TAMSULOSIN HCL 0.4 MG CAP PO SCH (08:20)
[2017-01-12] MEDS: POTASSIUM CHLORIDE 10 MEQ TABCR PO SCH (08:20)
[2017-01-12] MEDS: ASPIRIN 81 MG ECTAB PO SCH (08:21)
[2017-01-12] MEDS: DULOXETINE HCL 60 MG CAP PO SCH (08:21)
[2017-01-12] MEDS: DULOXETINE (CYMBALTA) 30 MG CAP PO SCH (08:21)
[2017-01-12] MEDS: DOCUSATE SODIUM 100 MG CAP PO SCH (08:21)
[2017-01-12] MEDS: GABAPENTIN 600 MG TAB PO SCH (08:21)
[2017-01-12] MEDS: CLONAZEPAM 0.5 MG TAB PO SCH (08:26)
[2017-01-12 09:00] VITALS: BP 186/96; PULSE 61; TEMP 36.4; O2SAT 91
[2017-01-12] MEDS ORDERED: HYDROCHLOROTHIAZIDE 25 MG TAB PO SCH (09:00)
[2017-01-12] MEDS ORDERED: LISINOPRIL 40 MG TAB PO SCH (09:00)
[2017-01-12 11:00] VITALS: PULSE 71; O2SAT 93
[2017-01-12] MEDS: QUETIAPINE FUMARATE 25 MG TAB PO SCH (11:37)
[2017-01-12 11:59] VITALS: BP 163/84; PULSE 61; TEMP 37; O2SAT 93
[2017-01-12 13:54] VITALS: BP 163/84; PULSE 61; TEMP 37; O2SAT 93
--- NOTE | 2017-01-12 16:51 | Discharge Summary ---
Discharge Summary Date of Service Jan 12, 2017. Discharge Summary Admission Date: Jan 08, 2017 at 17:55 Discharge Date: Jan 12, 2017 Discharge Disposition: shelter facility Principal Diagnosis: acute on chronic respiratory failure, pneumonia Medication Reconciliation New Medications: Dexamethasone (Decadron) 4 Mg Tab 4 MG PO UD, #10 TAB one pill a day for four days then 1/2 pill a day for four days then consider changing to 1 mg pill for four days then stop Levofloxacin (Levaquin) 500 Mg Tab 500 MG PO DAILY, #3 DOSE Changed Medications: Ipratropium-Albuterol (Duoneb) 3 Ml Nebu 1 TREATMENT INH Q6H, #120 INHA (Changed from: Removed Reason) and q 2 hours prn sob Continued Medications: Acetaminophen Tab (Tylenol) 325 Mg Tab 650 MG PO Q6H PRN for Pain or Fever, TAB NEEDED FOR MILD PAIN RATED 1-5 ON A SCALE OF "1-5" OR FOR ELEVATED TEMPERATURE GREATER THAN 101 F. DO NOT EXCEED 3 GM APAP/24 HOURS Aspirin (Aspirin Ec) 81 Mg Tab 81 MG PO DAILY Atorvastatin (Lipitor) 20 Mg Tab 20 MG PO HS Bisacodyl (Dulcolax) 10 Mg Sup 1 SUPP IL UD PRN for Constipation, SUP NEEDED FOR NO BOWEL MOVEMENT FOR 4 DAYS Calcium Carbonate (Tums) 500 Mg Chew 1000 MG PO Q6H PRN for HB/GI Upset Carbidopa/Levodopa (Sinemet 10MG/100MG) Tab 1 TAB PO Q6H Carvedilol (Coreg) 25 Mg Tab 25 MG PO Q12, TAB HOLD THIS MEDICATION FOR HEART RATE LESS THAN 50 AND/OR SYSTOLIC BLOOD PRESSURE LESS THAN 100 Clonazepam (Klonopin) 0.5 Mg Tab 0.5 MG PO BID, #60 TAB (This prescription has been renewed) Cyclobenzaprine Hcl (Flexeril) 10 Mg Tab 10 MG PO BID PRN for Muscle Spasm/Pain, TAB Docusate Sodium (Colace) 100 Mg Cap 100 PO BID, CAP Duloxetine Hcl (Cymbalta) 60 Mg Cap 60 MG PO DAILY, CAP TAKE ONE 60 MG CAPSULE ALONG WITH ONE 30 MG CAPSULE TO EQUAL DAILY DOSE OF 90 MG Duloxetine HCl (Cymbalta) 30 Mg Cap 30 MG PO DAILY, CAP TAKE ONE 30 MG CAPSULE ALONG WITH ONE 60 MG CAPSULE TO EQUAL DAILY DOSE OF 90 MG Gabapentin (Neurontin) 300 Mg Cap 600 MG PO TID, CAP Hydralazine HCl (Hydralazine HCl) 50 Mg Tab 50 MG PO QID Hydrochlorothiazide (Hctz) 25 Mg Tab 25 MG PO DAILY, TAB Lacosamide (Vimpat) 200 Mg Tab 200 MG PO BID Lamotrigine (Lamictal) 200 Mg Tab 200 MG PO BID, TAB Lamotrigine (Lamictal) 25 Mg Tab 25 MG PO BID, TAB Levothyroxine Sodium (Levothyroxine Sodium) 25 Mcg Tab 25 MCG PO DAILY, TAB Lisinopril (Zestril) 40 Mg Tab 40 MG PO DAILY, TAB HOLD THIS MEDICATION FOR HEART RATE LESS THAN 50 AND/OR SYSTOLIC BLOOD PRESSURE LESS THAN 100 Magnesium Hydroxide (Milk Of Magnesia) 30 Ml Susp 30 ML PO UD PRN for Constipation, ML NEEDED FOR NO BOWEL MOVEMENT FOR 9 SHIFTS Menthol (Topical Analgesic) (Biofreeze) 4 % Gel 1 APPLN TOP Q4H PRN for Left AC Pain Ondansetron Hcl (Zofran) 4 Mg Tab 4 MG PO Q8 PRN for Nausea or Vomiting, TAB Potassium Chloride Microencaps (Potassium Chloride Er) 10 Meq Tab 30 MEQ PO DAILY, TAB Quetiapine Fumarate (Seroquel) 25 Mg Tab 75 MG PO HS, TAB Quetiapine Fumarate (Seroquel) 25 Mg Tab 25 MG PO QD@1200, TAB Sennosides (Sennosides) 8.6 Mg Tab 17.2 MG PO BID Sodium Phosphate/Biphosphate (Fleet Enema) Emmie 1 EA IL UD PRN for Constipation, BTL IF AFTER 4 HOURS DULCOLAX SUPPOSITORY WAS INEFFECTIVE GIVE FLEET ENEMA Tamsulosin Hcl (Flomax) 0.4 Mg Cap 0.4 MG PO DAILY, CAP Tramadol (Ultram) 50 Mg Tab 50 MG PO Q4H PRN for Pain, #30 TAB (This prescription has been renewed) NEEDED FOR PAIN RATED 6-10 ON A SCALE OF "0-10" Warfarin Sodium (Coumadin) 3 Mg Tab 3 MG PO HS, TAB Discharge Exam Review of Systems: Constitutional: No fever, No chills Respiratory: + shortness of breath, + dyspnea on exertion Cardiovascular: No chest pain, No edema Abdomen: No pain, No nausea, No vomiting, No diarrhea Physical Exam: General Appearance: WD/WN, + mild distress Eyes: PERRL, EOMI Respiratory/Chest: chest non-tender, + decreased breath sounds, + accessory muscle use Cardiovascular: regular rate, rhythm Abdomen / GI: normal bowel sounds, non tender, soft Neurologic/Psychiatric: alert, oriented x 3 Hospital Course 61yo male with acute on chronic hypercarbic respiratory failure secondary to pneumonia poa, concern for gram negative-had some concern overnight 01/10->6 of neurologic deficit, stroke alert recommended CTA and could not confirm last known well enought to consider TPA, pt feels symptoms correspond to iv solumedrol, changed to po dexamethasone and no symptoms, will have on dexamethasone taper tia, certainly could be worsening of baseline due to metabolic stressors, now fatigued but back at baseline acute hypercarbic respiratory failure - resolved with BiPap.reactive bronchitis vs underlying COPD tapering steroids left-sided pneumonia - gram negative, cefepime and zithromax change to levaquin at discharge last dose 01/14 ?dysphagia - speech consult appreciated; passed swallow evaluation. No change in diet. h/o stroke with resulting right-sided hemiparesis - ; continue asa/coumadin for secondary stroke prevention.no new therapy or deficits, CTA does not show any vessel cutoffs coagulopathy, supratherapeutic INR - resolved; resume coumadin at previous dose. INR with close monitoring. seizure disorder - clinically stable, continue outpatient meds;klonipin, neurontin, vimpat and lamictal RLS - sinemet; CKD stage 3 with superimposed LORNE (acute kidney injury) - renal dose of meds, at baseline. BPH - no urinary symptoms, flomax hypothyroidism - cont synthroid; Total Time Spent: Greater than 30 minutes This includes examination of the patient, discharge planning, medication reconciliation, and communication with other providers. Discharge Instructions Please refer to the electronic Patient Visit Report (Discharge Instructions) for additional information.
== END 2017-01-12 14:49 | DRG 177 ==
LOC: EDBD 13:40 → C.EDB 13:41 → C.2T 17:55 → ENRESERV 18:21 → C.4E 01-10 17:55 → EDBEDREQ 01-10 22:47 → ENRESERV 01-10 23:18 → C.MSICU 01-10 23:18 → ENRESERV 01-11 01:03 → C.2T 01-11 01:23
PROVIDERS: ADMIT Internal Medicine; ATTEND Internal Medicine
DX: J15.6 Pneumonia due to other Gram-negative bacteria (principal); J96.22 Acute and chronic respiratory failure with hypercapnia; G45.9 Transient cerebral ischemic attack, unspecified; N17.9 Acute kidney failure, unspecified; I69.951 Hemiplegia and hemiparesis following unspecified cerebrovascular disease affecting right dominant side; I13.0 Hypertensive heart and chronic kidney disease with heart failure and stage 1 through stage 4 chronic kidney disease, or unspecified chronic kidney disease; N18.3 Chronic kidney disease, stage 3 (moderate); Z86.718 Personal history of other venous thrombosis and embolism; E86.0 Dehydration; J44.9 Chronic obstructive pulmonary disease, unspecified; I50.9 Heart failure, unspecified; I48.91 Unspecified atrial fibrillation; Z88.0 Allergy status to penicillin; G40.909 Epilepsy, unspecified, not intractable, without status epilepticus; G25.81 Restless legs syndrome; E03.9 Hypothyroidism, unspecified; N40.0 Benign prostatic hyperplasia without lower urinary tract symptoms; Z87.891 Personal history of nicotine dependence; Z79.01 Long term (current) use of anticoagulants; R13.10 Dysphagia, unspecified; E87.6 Hypokalemia

== ENCOUNTER → 2017-01-16 | Outpatient (CLI) | payer OTHER ==
[~2017-01-16] MED LIST changes: +ACET325T96 PO; +APR50 PO; +ASPI81TA28 PO; +ATOR-22 PO; -ATV/1 PO; +BISA10SU3 PR; +CALC500C3 PO; +CARB-157 PO; -CARV12.52 PO; +CARV25TA2 PO; +CLON0.5T3 PO; +CYCL10TA6 PO; +CYM/30 PO; +DOCU-94 PO; +DULO60CA44 PO; +DXM/4 PO; -FURO-85 PO; +GABA-113 PO; +HYDR25TA4 PO; +IPRASOL4 INH; +LACO200T PO; +LAMO200T38 PO; +LAMO25TA PO; -LEVE500T13 PO; +LEVO-459 PO; +LEVO25TA5 PO; +LISI40TA PO; +MENT4GEL TOP; +MOML PO; -NRN300 PO; +ONDA4TAB46 PO; +POTA10TA32 PO; +QUET1TAB30 PO; -QUET1TAB34 PO; -SENN-65 PO; +SENN8.6T94 PO; +SODIENE PR; -SYN25 PO; +TAMS0.4C38 PO; +TRAM-10 PO; -WARF2TAB8 PO; +WARF3TAB PO; -WARF3TAB6 PO
[2017-01-16 10:08] LABS: INR 1.8 (0.9-1.1); PROTHROMBIN TIME (PATIENT) 19.8 SECONDS (9.0-12.0)
== END | disposition home or self-care (01) ==
LOC: C.LABUPUNI 09:28
PROVIDERS: ATTEND Nurse Practitioner Family
DX: I63.50 Cerebral infarction due to unspecified occlusion or stenosis of unspecified cerebral artery (principal)

== ENCOUNTER → 2017-01-18 | Outpatient (CLI) | payer OTHER ==
[2017-01-18 09:03] LABS: INR 1.5 (0.9-1.1); PROTHROMBIN TIME (PATIENT) 16.7 SECONDS (9.0-12.0)
== END ==
LOC: C.LABUPUNI 08:35
PROVIDERS: ATTEND Nurse Practitioner Family
DX: I63.50 Cerebral infarction due to unspecified occlusion or stenosis of unspecified cerebral artery (principal)

== ENCOUNTER → 2017-02-11 | Outpatient (CLI) | payer OTHER ==
[~2017-02-11] MED LIST changes: -CARB-157 PO; +CARB10TA4 PO
== END ==
LOC: C.LABUPUNI 08:10
PROVIDERS: ATTEND Nurse Practitioner Family
DX: E03.9 Hypothyroidism, unspecified (principal)

== ENCOUNTER → 2017-05-10 | Outpatient (CLI) | payer OTHER ==
[~2017-05-10] MED LIST changes: -CARB10TA4 PO; +CARB10TA5 PO; +LAMO200T35 PO; -LAMO200T38 PO
[2017-05-10 08:46] LABS: BASO % 0.6 %; BASO ABS # 0.04 K/uL (0-0.2); EOS % 9.1 %; EOS ABS # 0.61 K/uL (0-0.5); HEMOGLOBIN 12.9 g/dL (14.0-18.0); IG# 0.02 K/uL (0.00-0.02); LYMPH ABS # 0.94 K/uL (1.2-3.4); MEAN CELL VOLUME 95.6 fL (80-100); MEAN CORPUSCULAR HEMOGLOBIN 31.6 pg (25-34); MEAN CORPUSCULAR HGB CONC 33.1 g/dl (32-36); MONO % 9.7 %; MONO ABS # 0.65 K/uL (0.11-0.59); NEUT % 66.3 %; NEUT ABS # 4.47 K/uL (1.4-6.5); PLATELET COUNT 245 K/uL (130-400); RED CELL DISTRIBUTION WIDTH CV 14.3 % (11.5-14.5); RED CELL DISTRIBUTION WIDTH SD 49.6 fL (36.4-46.3); WHITE BLOOD COUNT 6.73 K/uL (4.8-10.8)
[2017-05-10 08:54] LABS: ALBUMIN 3.1 gm/dl (3.4-5.0); ALT/SGPT 14 U/L (12-78); BLOOD UREA NITROGEN 14 mg/dl (7-18); CALCIUM 8.8 mg/dl (8.5-10.1); CARBON DIOXIDE 29 mmol/L (21-32); CHOLESTEROL 141 mg/dl (0-200); CREATININE 1.29 mg/dl (0.60-1.40); GLUCOSE 102 mg/dl (70-99); POTASSIUM 3.1 mmol/L (3.5-5.1); SODIUM 139 mmol/L (136-145)
[2017-05-10 08:57] LABS: ALKALINE PHOSPHATASE 125 U/L (45-117); AST/SGOT 13 U/L (15-37); LDL CHOLESTEROL CALCULATED 63 mg/dl; TOTAL PROTEIN 6.8 gm/dl (6.4-8.2)
== END ==
LOC: C.LABUPUNI 08:00
PROVIDERS: ATTEND Nurse Practitioner Family
DX: G20 Parkinson's disease (principal)

== ENCOUNTER → 2017-07-18 | Outpatient (CLI) | payer OTHER ==
[~2017-07-18] MED LIST changes: +ACET-1693 PO; -ACET325T96 PO; -DXM/4 PO
== END ==
LOC: C.LABUPUNI 08:21
PROVIDERS: ATTEND Nurse Practitioner Family
DX: R41.82 Altered mental status, unspecified (principal)

== ENCOUNTER → 2017-07-31 | Outpatient (CLI) | payer OTHER ==
[2017-07-31 08:27] LABS: BASO % 0.5 %; BASO ABS # 0.03 K/uL (0-0.2); EOS % 8.3 %; EOS ABS # 0.48 K/uL (0-0.5); HEMATOCRIT 39.9 % (42-52); HEMOGLOBIN 13.2 g/dL (14.0-18.0); IG# 0.01 K/uL (0.00-0.02); LYMPH % 27.1 %; LYMPH ABS # 1.56 K/uL (1.2-3.4); MEAN CELL VOLUME 91.9 fL (80-100); MEAN CORPUSCULAR HEMOGLOBIN 30.4 pg (25-34); MEAN CORPUSCULAR HGB CONC 33.1 g/dl (32-36); MEAN PLATELET VOLUME 10.8 fL (7.4-10.4); MONO % 10.4 %; NEUT % 53.5 %; NEUT ABS # 3.07 K/uL (1.4-6.5); PLATELET COUNT 242 K/uL (130-400); RED CELL DISTRIBUTION WIDTH CV 14.4 % (11.5-14.5); RED CELL DISTRIBUTION WIDTH SD 49.1 fL (36.4-46.3); WHITE BLOOD COUNT 5.75 K/uL (4.8-10.8)
[2017-07-31 08:35] LABS: ALBUMIN 3.1 gm/dl (3.4-5.0); ALT/SGPT 14 U/L (12-78); AST/SGOT 10 U/L (15-37); BLOOD UREA NITROGEN 14 mg/dl (7-18); CALCIUM 8.5 mg/dl (8.5-10.1); CARBON DIOXIDE 29 mmol/L (21-32); CREATININE 1.32 mg/dl (0.60-1.40); GLUCOSE 84 mg/dl (70-99); POTASSIUM 2.8 mmol/L (3.5-5.1); SODIUM 141 mmol/L (136-145)
[2017-07-31 08:40] LABS: ALKALINE PHOSPHATASE 112 U/L (45-117); TOTAL PROTEIN 6.5 gm/dl (6.4-8.2)
== END ==
LOC: C.LABUPUNI 08:04
PROVIDERS: ATTEND Nurse Practitioner Family
DX: N40.0 Benign prostatic hyperplasia without lower urinary tract symptoms (principal)

== ENCOUNTER → 2017-07-31 | Outpatient (CLI) | payer OTHER | LOC: C.LABUPUNI 08:21 | PROVIDERS: ATTEND Nurse Practitioner Family | DX: R30.0 Dysuria (principal) ==

== ENCOUNTER → 2017-08-02 | Outpatient (CLI) | payer OTHER | LOC: C.LABUPUNI 09:03 | PROVIDERS: ATTEND Nurse Practitioner Family | DX: G25.81 Restless legs syndrome (principal) ==

== ENCOUNTER → 2017-10-26 | Outpatient (CLI) | payer OTHER ==
[~2017-10-26] MED LIST changes: -CLON0.5T3 PO; +IPRA-64 INH; -IPRASOL4 INH; +KLN/5 PO
[2017-10-26 07:02] LABS: BLOOD UREA NITROGEN 14 mg/dl (7-18); CALCIUM 8.7 mg/dl (8.5-10.1); CARBON DIOXIDE 28 mmol/L (21-32); CREATININE 1.13 mg/dl (0.60-1.40); GLUCOSE 83 mg/dl (70-99); POTASSIUM 3.5 mmol/L (3.5-5.1); SODIUM 143 mmol/L (136-145)
== END ==
LOC: C.LABUPUNI 04:05
PROVIDERS: ATTEND Nurse Practitioner Family
DX: E87.6 Hypokalemia (principal)

== ENCOUNTER → 2017-10-28 | Outpatient (CLI) | payer OTHER | LOC: C.LABUPNIT 08:51 | PROVIDERS: ATTEND Nurse Practitioner Family | DX: M62.838 Other muscle spasm (principal) ==

== ENCOUNTER → 2017-11-25 | Outpatient (CLI) | payer OTHER | LOC: C.LABUPUNI 08:41 | PROVIDERS: ATTEND Nurse Practitioner Family | DX: E03.9 Hypothyroidism, unspecified (principal); E78.5 Hyperlipidemia, unspecified ==

== ENCOUNTER 2019-03-24 11:22 | Inpatient (IN) ==
--- OUTSIDE RECORDS SUMMARY | 2019-03-24 11:26 | External Medical Summary | Continuity of Care Document ---
:1955 Author Name Taylor Lee, Provider Address Unavailable Unavailable , Care Team Providers Name Role Phone Davian Ruano M.D. 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) RLS (restless legs syndrome) (333.94) (G25.81) Epilepsy (345.90) (G40.909) Spasticity (781.0) (R25.2) Migraine headache (346.90) (G43.909) Cellulitis of right upper limb (682.3) (L03.113) Altered mental status, unspecified (780.97) (R41.82) Diaphragmatic hernia without obstruction and without gangren e (553.3) (K44.9) Heartburn (787.1) (R12) Chronic pain (338.29) (G89.29) Mood disorder due to known physiological condition, unspecified (293.83) (F06.30) Hypokalemia (276.8) (E87.6) Hypothyroidism (244.9) (E03.9) Benign prostatic hyperplasia (600.00) (N40.0) Major depression, recurrent (296.30) (F33.9) Constipation (564.00) (K59.00) Other forms of epilepsy and recurrent seizures (345.80) (G40 .802) Essential hypertension, benign (401.1) (I10) AC joint pain (719.41) (M25.519) Pure hypercholesterolemia (272.0) (E78.00) Anxiety disorder, unspecified (300.00) (F41.9) Cerebral infarction due to occlusion or stenosis of anterior cerebral artery (434.91) (I63.529) Varicocele (456.4) (I86.1) Scrotal mass (608.89) (N50.89) Urinary symptom or sign (788.99) (R39.9) Fatigue (780.79) (R53.83) Hand laceration (882.0) (S61.419A) Internal hemorrhoids (455.0) (K64.8) Popliteal cyst, left (727.51) (M71.22) External hemorrhoids (455.3) (K64.4) Hemorrhoids (455.6) (K64.9) Allergies and Adverse Reactions Amoxicillin CAPS (Allergy) Aspirin TABS (Allergy) Reaction: Nausea Dilaudid TABS (Allergy) Penicillins (Allergy) Medications Aspirin 81 MG TABS; TAKE 1 TABLET DAILY. Refills: 0 Atorvastatin Calcium 20 MG Oral Tablet; TAKE 1 TABLET AT BED TIME. Quantity: 30 Refills: 5 hydroCHLOROthiazide 25 MG Oral Tablet; TAKE 1 TABLET DAILY. Quantity: 30 Refills: 5 Levothyroxine Sodium 25 MCG Oral Tablet; TAKE 1 TABLET DAILY . Quantity: 90 Refills: 3 Lisinopril 40 MG Oral Tablet; TAKE 1 TABLET DAILY. Quantity: 90 Refills: 3 Colace 100 MG Oral Capsule; TAKE 1 CAPSULE TWICE DAILY NE EDED. Refills: 0 lamoTRIgine 200 MG Oral Tablet; TAKE 1 TABLET TWICE DAILY. Refills: 0 Finasteride 5 MG Oral Tablet; TAKE ONE TABLET BY MOUTH DAILY Rosa Ruano Start: 13-Aug-2017 Quantity: 90 Refills: 3 Tamsulosin HCl - 0.4 MG Oral Capsule; TA KE 1 CAPSULE EVERY DAY 1/2 HOUR AFTER SUPPER Rosa Ruano Quantity: 90 Refills: 3 clonazePAM 0.5 MG Oral Tablet; TAKE 1 TABLET EVERY 12 HOURS NEEDED. DO Isela Hernandez Quantity: 60 Refills: 0 Acetaminophen 325 MG Oral Tablet; TAKE 1 TO 2 TABLETS EVERY 6 HOURS NEEDED. Refills: 0 Biofreeze Colorless 4 % GEL; Apply to L AC topically every 4 hours prn. Refills: 0 Dulcolax SUPP; USE DIRECTED. Refills: 0 Fleet Enema ENEM; USE DIRECTED. Refills: 0 hydrALAZINE HCl - 50 MG Oral Tablet; TAKE 1 TABLET 4 TIMES D AILY. Refills: 0 Vimpat 100 MG Oral Tablet; TAKE 1 TABLET TWICE DAILY A S DIRECTED. WILFREDO Dietz Quantity: 60 Refills: 5 lamoTRIgine 25 MG Oral Tablet; TAKE 1 TABLET TWICE DAILY. Refills: 0 Milk of Magnesia SUSP; USE DIRECTED. Refills: 0 Skin Prep Wipes; USE DIRECTED. Refills: 0 traMADol HCl - 50 MG Oral Tablet; TAKE 1 TABLET EVERY 4 HOURS NEEDED FOR PAIN. Quantity: 50 Refills: 0 Tums CHEW; TAKE 2 EVERY 6 HOURS PRN. Refills: 0 Zofran 4 MG Oral Tablet; TAKE 1 TABLET Every 8 hours PRN Refills: 0 Cyclobenzaprine HCl - 10 MG Oral Tablet; TAKE 1 TABLET Twice daily PRN Refills: 0 DuoNeb 0.5-2.5 (3) MG/3ML SOLN; ADMINIST ER ONE 3 ML VIAL 4 TIMES DAILY VIA NEBULIZATION. Refills: 0 Senna Plus TABS; TAKE 1 TABLET TWICE DAILY. Refills: 0 DULoxetine HCl - 60 MG Oral Capsule Amada yed Release Particles; TAKE ONE (1) CAPSULE(S) DAILY ALONG WITH 30 MG TABLET TO EQUAL 90 MG Refills: 3 Senokot TABS; TAKE 2 TABLET Twice daily Refills: 0 Gabapentin 300 MG Oral Capsule; TAKE 2 CAPSULE 3 times daily DO Isela Hernandez Quantity: 180 Refills: 6 Carvedilol 25 MG Oral Tablet; TAKE 1 TABLET TWICE DAILY. Refills: 0 Carbidopa-Levodopa 10-100 MG Oral Tablet; TAKE 1 TAB E VERY 6 HOURS DAILY. DO Isela Hernandez Quantity: 120 Refills: 0 Potassium Chloride Joycelyn ER 10 MEQ Oral T ablet Extended Release; TAKE 1 TABLET DAILY. Refills: 0 Voltaren 1 % GEL; APPLY GM 3 times daily Refills: 0 GuaiFENesin 100 MG/5ML SYRP; TAKE 10 ML EVERY 6 HOURS NEE DED Refills: 0 Flonase Allergy Relief SUSP; USE 1 SPRAY IN EACH NOSTRIL ONC E DAILY. 9.9 ML Bottle Refills: 0 Procedures History of Knee Surgery Status: Complete d Immunizations Immunizations not documented Family History Father Family history of alcohol abuse (V61.41) (Z81.1) Status: Act cherise Family history of depression (V17.0) (Z81.8) Status: Active Family history of hypertension (V17.49) (Z82.49) Status: Act cherise Family history of Seizure (780.39) (R56.9) Status: Active Family history of myocardial infarction (V17.3) (Z82.49) Sta tus: Active Mother Family history of gallbladder disease (V18.59) (Z83.79) Stat us: Active Family history of kidney stones (V18.69) (Z84.1) Status: Act cherise Social History - Smoking Status Current every day smoker Interventions Medication ChangesFinasteride 5 MG Oral Tablet - StartTamsulosin HCl - 0.4 MG Oral Capsule - Renew with ChangesFollow-ups/ReferralsFollow-up visit in 1 year; Done: 13 Aug 2017Discussion/SummaryAssessmentLower urinary tract symptoms will continue Flomax we will add in Proscar Plan of Treatment Planned Observations Planned Goals not documented Results No Known Results Results not documented Encounters Appointment; Brigette Dietz PA-C 19-Jul-2017 14:00 Encounter Diagnosis: Problem not documented Appointment; Davian Ruano M.D. 13-Aug-2017 14:15 Encounter Diagnosis: Problem not documented
[2019-03-24] MEDS ORDERED: SODIUM CHLORIDE 0.9% 500 ML IV SCH (12:00)
[2019-03-24 12:13] LABS: Basophils # (auto) 0.04 K/uL (0-0.2); Basophils % (auto) 0.6 %; Eosinophils # (auto) 0.68 K/uL (0-0.5); Eosinophils % (auto) 9.7 %; Hematocrit (blood only) 44.5 % (42-52); Immature Granulocytes # (auto) 0.01 K/uL (0.00-0.02); Immature Granulocytes % (auto) 0.1 %; Lymphocytes # (auto) 1.43 K/uL (1.2-3.4); Lymphocytes % (auto) 20.3 %; Mean Corpuscular Hemoglobin 32.8 pg (25-34); Mean Corpuscular Hgb Conc 33.7 g/dL (32-36); Mean Corpuscular Volume 97.2 fL (80-100); Mean Platelet Volume 10.4 fL (7.4-10.4); Monocytes # (auto) 0.81 K/uL (0.11-0.59); Monocytes % (auto) 11.5 %; Neutrophils # (auto) 4.06 K/uL (1.4-6.5); Neutrophils % (auto) 57.8 %; Platelet Count 273 K/uL (130-400); RDW Coefficient of Variation 14.6 % (11.5-14.5); RDW Standard Deviation 51.9 fL (36.4-46.3); Red Blood Count 4.58 M/uL (4.7-6.1); White Blood Count 7.03 K/uL (4.8-10.8)
[2019-03-24 12:24] LABS: Alanine Aminotransferase 25 U/L (12-78); Albumin Level 3.9 gm/dl (3.4-5.0); Aspartate Aminotransferase 27 U/L (15-37); BUN Creatinine Ratio 11.5 (10-20); Blood Urea Nitrogen 18 mg/dl (7-18); Calcium 9.4 mg/dl (8.5-10.1); Carbon Dioxide 31 mmol/L (21-32); Chloride 102 mmol/L (98-107); Creatinine Clr Calc Pharmacy 50.4 ml/min; Est GFR (African American) 53.2; Est GFR (Non-African American) 45.9; Glucose 118 mg/dl (70-99); Potassium 3.2 mmol/L (3.5-5.1); Sodium 139 mmol/L (136-145)
[2019-03-24 12:27] LABS: INR 1.1 (0.9-1.1); Prothrombin Time 11.4 Seconds (9.0-12.0)
[2019-03-24 12:29] LABS: Albumin Globulin Ratio 0.9 (0.9-2); Alkaline Phosphatase 128 U/L (45-117); Bilirubin,Total 0.3 mg/dl (0.2-1); Creatine Kinase 235 U/L (39-308); Globulin 4.2 gm/dl (2.5-4.0); Total Protein 8.1 gm/dl (6.4-8.2); Troponin I < 0.015 ng/ml (0-0.045)
--- NOTE | 2019-03-24 12:42 | CT Scan Report ---
CT head/brain wo con CLINICAL HISTORY: 63 years-old Male with ams. Acutely altered mental status TECHNIQUE: Multiple axial CT images of the head were obtained without contrast. A dose lowering tech nique was utilized adhering to the principles of ALARA. COMPARISON: Head CT 04/29/2018. FINDINGS: No acute intracranial hemorrhage, midline shift, intracranial mass, hydrocephalus, territorial ischem ia or abnormal extra-axial collection. Age-related involutional changes. Encephalomalacia about the r ight frontal and left parietal lobes compatible with areas of remote infarction. Ex vacuo ventriculom egaly about the atria left lateral ventricle. Wallerian degeneration of the left midbrain and thalamu s. The calvarium is intact. Periapical cyst formation about the maxilla. Severe right maxillary and m ild left maxillary sinus disease. Moderate mucosal thickening of the ethmoid sinuses. Soft tissues an d orbits are unremarkable. IMPRESSION: 1. No acute intracranial abnormality. 2. Chronic findings as above. The above report was generated using voice recognition software. It may contain grammatical, syntax o r spelling errors. Electronically signed by: Isaac Mckinney M.D. 03/24/2019 12:41 PM
--- NOTE | 2019-03-24 12:44 | CT Scan Report ---
CT SCAN OF THE ABDOMEN AND PELVIS WITHOUT IV CONTRAST CLINICAL HISTORY: Change in mental status. Generalized abdominal pain. COMPARISON STUDY: No priors. TECHNIQUE: CT scan of the abdomen and pelvis is performed from the lung bases to the proximal femora. Images are reviewed in the axial, sagittal, and coronal planes. IV contrast was not administered for this examination as per the referring clinician. Note that the examination is suboptimal without ora l and IV contrast. A dose lowering technique was utilized adhering to the principles of ALARA. The ex amination is degraded by motion artifact, as well as by streak artifact from the arms which could not be elevated above the abdomen. CT DOSE: 1447.66 mGy.cm FINDINGS: Lung bases: The heart is enlarged and without pericardial effusion. There are coronary artery calcifi cations. Gynecomastia is noted. The lung bases are clear noting dependent atelectasis. There is a sma ll hiatal hernia. Liver: Evaluation of the liver is degraded by streak artifact. The unenhanced liver is normal in size , contour, and attenuation. There is no intrahepatic biliary ductal dilatation. Gallbladder: Unremarkable. Spleen: Normal in size and attenuation. Pancreas: Unremarkable. Adrenal glands: Unremarkable. Kidneys: The unenhanced kidneys demonstrate cortical atrophy and are without hydronephrosis. There is a 3 mm nonobstructing left renal calculus. No right renal calculi are identified. There is no eviden ce of contour deforming renal mass lesion. Abdominal vasculature: There is moderate to advanced atherosclerotic calcification and mild ectasia o f the abdominal aorta. An infrarenal IVC filter is in place. Bowel: There is mild colonic diverticulosis without CT evidence of acute diverticulitis. No bowel obs truction is seen. Fecal retention is noted in the colon. The appendix is not visualized. Peritoneum: There is no intraperitoneal free air or abdominal ascites. There is a large fat-containin g umbilical hernia. Lymphadenopathy: None. Pelvic viscera: The prostate gland is enlarged and heterogeneous noting median lobe hypertrophy. The bladder wall is thickened and trabeculated suggesting chronic outlet obstruction. Skeletal structures: The skeletal structures are osteopenic. Mild lumbosacral spondylosis is observed . No lytic or blastic lesions are seen. IMPRESSION: 1. Suboptimal examination without oral and IV contrast. The examination is also degraded by streak an d motion artifact. 2. No acute infectious or inflammatory findings are identified in the abdomen or pelvis. 3. Cardiomegaly. 4. Mild colonic diverticulosis without CT evidence of acute diverticulitis. 5. Left-sided nephrolithiasis. 6. Additional findings as above. Electronically signed by: Kelby Partida M.D. 03/24/2019 12:43 PM
[2019-03-24] MEDS ORDERED: LORazepam 1 MG/2 ML VIAL IV STA (13:07)
--- NOTE | 2019-03-24 13:16 | Emergency Department Note ---
Entered by Alcides Lowry acting as a scribe for History of Present Illness General Chief complaint: Fall Stated complaint: fall/ confused, head pain Time Seen by Provider: 03/24/19 11:28 Source: patient History of Present Illness Provider complaint: Speech impairment Onset (ago): hour(s) 1 Location: head Severity: similar to prior episodes Pain Consistency: + constant and + other (Episodic) Relieved By: + none Associated symptoms: + other (Frequent falls) The patient is a 63 year old male who presents to the Emergency Room with complaints of constant speech impairments that started about an hour ago. Per the nursing note the patient was last known well about at about 10:30 today, an hour before arrival. The nurse states that the patient presented to the ED from [facility] 2 weeks ago after a fall and his CT scan was negative. Since this time the patient has fallen twice and during his last visit to the ED 3 days ago, he refused to have a CT done. The patient is on Eliquis and is a DNR. HPI i s limited secondary to patient's altered mental status. Home Medications Home Medications Medication Instructions Recorded Confirmed Type acetaminophen 650 mg PO Q6 PRN 02/26/18 03/24/19 History calcium carbonate [Tums] 2 tab PO Q6H PRN 02/26/18 03/24/19 History carbidopa-levodopa 1 tab PO Q6 02/26/18 03/24/19 History carvedilol [Coreg] 25 mg PO Q12H 02/26/18 03/24/19 History clonazepam 0.5 mg PO BID 02/26/18 03/24/19 History docusate sodium [Colace] 100 mg PO BID 02/26/18 03/24/19 History finasteride [Proscar] 5 mg PO DAILY 02/26/18 03/24/19 History hydrochlorothiazide 25 mg PO DAILY 02/26/18 03/24/19 History lamotrigine 400 mg PO DAILY 02/26/18 03/24/19 History lisinopril 40 mg PO DAILY 02/26/18 03/24/19 History rivaroxaban [Xarelto] 20 mg PO DAILY 02/26/18 03/24/19 History sennosides [Senokot] 17.2 mg PO BID PRN 02/26/18 03/24/19 History duloxetine 30 mg PO DAILY 03/20/19 03/24/19 History lacosamide [Vimpat] 100 mg PO DAILY 03/20/19 03/24/19 History lamotrigine 100 mg PO DAILY 03/20/19 03/24/19 History quetiapine 25 mg PO HS 03/20/19 03/24/19 History gabapentin 600 mg PO TID 03/24/19 03/24/19 History Allergies Allergy/AdvReac Type Severity Reaction Status Date / Time hydromorphone Allergy Unknown Unknown Verified 03/24/19 12:17 Penicillins Allergy Unknown UNKNOWN Unverified 03/24/19 12:17 aspirin AdvReac Unknown NAUSEA Unverified 03/24/19 12:17 Past Med/Surg History Medical History History of CVA (cerebrovascular accident) (Resolved) Hyperlipemia (Chronic) Hypertension (Chronic) Mood disorder (Chronic) Seizure (Chronic) Surgical History No pertinent past surgical history Family History Other No pertinent family history Social History Preferred Language: [place] Feels Safe at Home: Declines to Answer Smoking Status: Unknown if ever smoked Review of Systems See HPI for pertinent positives & negatives. Other (Limited secondary to the patient's altered mental status. ) Physical Exam Vital Signs Vital Signs - 24 hr 03/24/19 11:40 03/24/19 13:02 Temperature 36.7 C Temperature Source Oral Pulse Rate 64 Pulse Rate [Apical] 58 L Respiratory Rate 22 20 Blood Pressure 148/99 H Blood Pressure [Left Arm] 129/84 Blood Pressure Mean 115 Blood Pressure Mean [Left Arm] 99 Pulse Oximetry 95 97 Oxygen Delivery Method Room Air Room Air Sepsis Recent Fever Within 48 Hours No Sepsis New/Unexplained Change in Mental Status No Sepsis Action Taken by Nursing No Action Required CONSTITUTIONAL/VITAL SIGNS: Reviewed / noted above. GENERAL: Non-toxic in appearance. INTEGUMENTARY: Warm, dry, and [place]. HEAD: Normocephalic. EYES: without scleral icterus or trauma. ENT/OROPHARYNX: clear and moist. LYMPHADENOPATHY/NECK: Is supple without lymphadenopathy or meningismus. RESPIRATORY: Lungs clear and equal. CARDIOVASCULAR: Regular rate and rhythm. GI/ABDOMEN: Soft and nontender. No organomegaly or pulsatile mass. No rebound or guarding. Normal bowel sounds. Left upper quadrant ecchymosis noted. EXTREMITIES: Warm and well perfused. BACK: No CVA tenderness. NEUROLOGICAL: Altered sensorium. Speech is slurred and difficult to understand. He does appear to understand questioning and answers questions appropriately when understood. PSYCHIATRIC: normal affect. MUSCULOSKELETAL: Normally developed with good muscle tone. Mild discomfort with palpation to the right hip. Course Course 1128: Past medical records reviewed. The patient was evaluated in room C06, and a complete history and physical examination were performed. 1310: I reevaluated the patient and he is resting in bed with no change in condition. I updated him on the test results and the treatment plan. 1322: I spoke to Dr. Mee Mclain [facility] Hospitalist about the patient's case. He agreed to accept the patient for further evaluation. Consultations Consultation #1: I spoke to Dr. Mee Mclain [facility] Hospitalist about the patient's case. He agreed to accept the patient for further evaluation. Time: 13:22 Administered Medications Discontinued Medications Sodium Chloride (Nss) 500 mls @ 999 mls/hr IV .Q31M MANASA Stop: 03/24/19 12:30 Last Admin: 03/24/19 12:33 Dose: 999 mls/hr Documented by: [id number] Lorazepam (Ativan) 1 mg in 2 mls @ 2 mls/min IV NOW STA Stop: 03/24/19 13:08 Last Admin: 03/24/19 13:21 Dose: 2 mls/min Documented by: [id number] Medical Decision Making Differential Diagnosis Differential Diagnosis includes but is not limited to dehydration, stroke, anemia, hypoglycemia, hyponatremia, hypernatremia, urinary tract infection, pneumonia, bronchitis, sepsis, gastroenteritis, additional abdominal pathology, metabolic abnormalities and infections. Medical Records Attestation: I reviewed the patient's medical records. Home Medications Current Medication List: was personally reviewed by me Laboratory Data Attestation: I reviewed the patient's lab results. Result diagrams: 03/24/19 11:31 03/24/19 11:31 Lab Results 03/24/19 03/24/19 03/24/19 Range/Units 11:31 11:31 11:31 WBC 7.03 (4.8-10.8) K/uL RBC 4.58 L (4.7-6.1) M/uL Hgb 15.0 (14.0-18.0) g/dL Hct 44.5 (42-52) % MCV 97.2 (80-100) fL MCH 32.8 (25-34) pg MCHC 33.7 (32-36) g/dL RDW Std Deviation 51.9 H (36.4-46.3) fL RDW Coeff of Rod 14.6 H (11.5-14.5) % Plt Count 273 (130-400) K/uL MPV 10.4 (7.4-10.4) fL Immature Gran % (Auto) 0.1 % Neut % (Auto) 57.8 % Lymph % (Auto) 20.3 % Barron % (Auto) 11.5 % Eos % (Auto) 9.7 % Baso % (Auto) 0.6 % Immature Gran # (Auto) 0.01 (0.00-0.02) K/uL Neut # (Auto) 4.06 (1.4-6.5) K/uL Lymph # (Auto) 1.43 (1.2-3.4) K/uL Barron # (Auto) 0.81 H (0.11-0.59) K/uL Eos # (Auto) 0.68 H (0-0.5) K/uL Baso # (Auto) 0.04 (0-0.2) K/uL PT 11.4 (9.0-12.0) Seconds INR 1.1 (0.9-1.1) Sodium 139 (136-145) mmol/L Potassium 3.2 L (3.5-5.1) mmol/L Chloride 102 (98-107) mmol/L Carbon Dioxide 31 (21-32) mmol/L Anion Gap 7.0 (3-11) BUN 18 (7-18) mg/dl Creatinine 1.56 H (0.6-1.4) mg/dl Est Cr Clr Drug Dosing 50.4 ml/min Est GFR ( Amer) 53.2 Est GFR (Non-Af Amer) 45.9 BUN/Creatinine Ratio 11.5 (10-20) Glucose 118 H (70-99) mg/dl Lactate (0.4-2.0) mmol/L Calcium 9.4 (8.5-10.1) mg/dl Total Bilirubin 0.3 (0.2-1) mg/dl AST 27 (15-37) U/L ALT 25 (12-78) U/L Alkaline Phosphatase 128 H (45-117) U/L Total Creatine Kinase 235 (39-308) U/L Troponin I < 0.015 (0-0.045) ng/ml Total Protein 8.1 (6.4-8.2) gm/dl Albumin 3.9 (3.4-5.0) gm/dl Globulin 4.2 H (2.5-4.0) gm/dl Albumin/Globulin Ratio 0.9 (0.9-2) Specimen Hemolysis Ethyl Alcohol mg/dL (0-3) mg/dl 03/24/19 03/24/19 Range/Units 12:16 12:16 WBC (4.8-10.8) K/uL RBC (4.7-6.1) M/uL Hgb (14.0-18.0) g/dL Hct (42-52) % MCV (80-100) fL MCH (25-34) pg MCHC (32-36) g/dL RDW Std Deviation (36.4-46.3) fL RDW Coeff of Rod (11.5-14.5) % Plt Count (130-400) K/uL MPV (7.4-10.4) fL Immature Gran % (Auto) % Neut % (Auto) % Lymph % (Auto) % Barron % (Auto) % Eos % (Auto) % Baso % (Auto) % Immature Gran # (Auto) (0.00-0.02) K/uL Neut # (Auto) (1.4-6.5) K/uL Lymph # (Auto) (1.2-3.4) K/uL Barron # (Auto) (0.11-0.59) K/uL Eos # (Auto) (0-0.5) K/uL Baso # (Auto) (0-0.2) K/uL PT (9.0-12.0) Seconds INR (0.9-1.1) Sodium (136-145) mmol/L Potassium (3.5-5.1) mmol/L Chloride (98-107) mmol/L Carbon Dioxide (21-32) mmol/L Anion Gap (3-11) BUN (7-18) mg/dl Creatinine (0.6-1.4) mg/dl Est Cr Clr Drug Dosing ml/min Est GFR ( Amer) Est GFR (Non-Af Amer) BUN/Creatinine Ratio (10-20) Glucose (70-99) mg/dl Lactate 1.6 (0.4-2.0) mmol/L Calcium (8.5-10.1) mg/dl Total Bilirubin (0.2-1) mg/dl AST (15-37) U/L ALT (12-78) U/L Alkaline Phosphatase (45-117) U/L Total Creatine Kinase (39-308) U/L Troponin I (0-0.045) ng/ml Total Protein (6.4-8.2) gm/dl Albumin (3.4-5.0) gm/dl Globulin (2.5-4.0) gm/dl Albumin/Globulin Ratio (0.9-2) Specimen Hemolysis Ethyl Alcohol mg/dL < 3.0 (0-3) mg/dl Imaging Data Radiologist's Impression: Radiology results as stated below per my review and the radiologist's interpretation: CT head/brain wo con CLINICAL HISTORY: 63 years-old Male with ams. Acutely altered mental status TECHNIQUE: Multiple axial CT images of the head were obtained without contrast. A dose lowering technique was utilized adhering to the principles of ALARA. COMPARISON: Head CT 04/29/2018. FINDINGS: No acute intracranial hemorrhage, midline shift, intracranial mass, hydrocephalus, territorial ischemia or abnormal extra-axial collection. Age-related involutional changes. Encephalomalacia about the right frontal and left parietal lobes compatible with areas of remote infarction. Ex vacuo ventriculomegaly about the atria left lateral ventricle. [place]ian degeneration of the left midbrain and thalamus. The calvarium is intact. Periapical cyst for mation about the maxilla. Severe right maxillary and mild left maxillary sinus disease. Moderate mucosal thickening of the ethmoid sinuses. Soft tissues and orbits are unremarkable. IMPRESSION: 1. No acute intracranial abnormality. 2. Chronic findings as above. The above report was generated using voice recognition software. It may contain grammatical, syntax or spelling errors. Electronically signed by: Isaac Mckinney M.D. 03/24/2019 12:[address] SCAN OF THE ABDOMEN AND PELVIS WITHOUT IV CONTRAST CLINICAL HISTORY: Change in mental status. Generalized abdominal pain. COMPARISON STUDY: No priors. TECHNIQUE: CT scan of the abdomen and pelvis is performed from the lung bases to the proximal femora. Images are reviewed in the axial, sagittal, and coronal planes. IV contrast was not administered for this examination as per the referring clinician. Note that the examination is suboptimal without oral and IV contrast. A dose lowering technique was utilized adhering to the principles of ALARA. The examination is degraded by motion artifact, as well as by streak artifact from the arms which could not be elevated above the abdomen. CT DOSE: 1447.66 mGy.cm FINDINGS: Lung bases: The heart is enlarged and without pericardial effusion. There are co ronary artery calcifications. Gynecomastia is noted. The lung bases are clear noting dependent atelectasis. There is a small hiatal hernia. Liver: Evaluation of the liver is degraded by streak artifact. The unenhanced liver is normal in size, contour, and attenuation. There is no intrahepatic biliary ductal dilatation. Gallbladder: Unremarkable. Spleen: Normal in size and attenuation. Pancreas: Unremarkable. Adrenal glands: Unremarkable. Kidneys: The unenhanced kidneys demonstrate cortical atrophy and are without hydronephrosis. There is a 3 mm nonobstructing left renal calculus. No right renal calculi are identified. There is no evidence of contour deforming renal mass lesion. Abdominal vasculature: There is moderate to advanced atherosclerotic calcification and mild ectasia of the abdominal aorta. An infrarenal IVC filter is in place. Bowel: There is mild colonic diverticulosis without CT evidence of acute diverticulitis. No bowel obstruction is seen. Fecal retention is noted in the colon. The appendix is not visualized. Peritoneum: There is no intraperitoneal free air or abdominal ascites. There is a large fat-containing umbilical hernia. Lymphadenopathy: None. Pelvic viscera: The prostate gland is enlarged and heterogeneous noting median lobe hypertrophy. The bladder wall is thickened and trabeculated suggesting chronic outlet obstruction. Skeletal structures: The skeletal structures are osteopenic. Mild lumbosacral spondylosis is observed. No lytic or blastic lesions are seen. IMPRESSION: 1. Suboptimal examination without oral and IV contrast. The examination is also degraded by streak and motion artifact. 2. No acute infectious or inflammatory findings are identified in the abdomen or pelvis. 3. Cardiomegaly. 4. Mild colonic diverticulosis without CT evidence of acute diverticulitis. 5. Left-sided nephrolithiasis. 6. Additional findings as above. Electronically signed by: Kelby Partida M.D. 03/24/2019 12:43 PM ECG Data Attestation: I personally reviewed and interpreted this ECG as follows: Indication: + altered mental status Rate (beats per minute): 59 Rhythm: + sinus bradycardia ECG Intervals/blocks: + Normal QT-c ECG [place]: + Normal ECG ST segments: no ST elevation ECG Findings: no PACs and no PVCs Blood Pressure Blood Pressure Findings: Elevated blood pressure Blood Pressure Disposition: further management by hospitalist DRU Rock This is a 63-year-old male who presents to the ED with a chief complaint of altered mental status and slurring speech. The patient comes from the [facility] [place]. He is reportedly DNR. He was okay around 1030 this morning. When he, according to history from EMS, became altered and slurring of the speech. The patient is somewhat of a poor historian. He does speak but is difficult to understand. The questions that he does answer which are understandable seem to be appropriate. He also seems to be somewhat agitated. He swings and punches and kicks by staff at times. He does not follow any specific commands. He is no voiced complaints although seems to have some discomfort on the right side of his body. He has had some recent falls. He was in the hospital couple days ago and had a CT scan of his brain. At that time, the patient exam shows that his speech was normal. The patient's exam other than the slurring heavy speech and lack of cooperation seems to be relatively unremarkable. He did seem to be agitated at times. He has some bruising noted to the left upper quadrant of his abdomen. He reportedly had 2 falls since his discharge from the hospital couple days ago. An EKG shows a sinus bradycardia at a rate of 59. His vital signs are otherwise normal and he is afebrile. He is not hypoxic. A CT scan of the brain did not show acute process. A CT scan of the abdomen pelvis did not show acute process. CBC and complete metabolic panel was unremarkable. Troponin was negative. Alcohol was negative. The exact cause of the patient's symptoms are unclear at this time. I spoke with the hospitalist, who will see the patient for further inpatient evaluation and care. His symptoms do seem to be different than his previous evaluation based on reviewing his records. Patient does not have any focal neurologic deficits to suggest acute CVA. He was treated with IV lorazepam for agitation. He was also given some IV fluids normal saline. Impression & Plan Altered mental status, Agitation, Slurred speech Discharge Plan Visit Data Chief Complaint: Fall Stated Complaint: fall/ confused, head pain ED Provider: Jayme Chong Discharge Problem: Altered mental status, Agitation, Slurred speech Patient Disposition: Being Evaluated by Hospitalist Forms Stand Alone Forms: [facility] Prescriptions Prescriptions: No Action carvedilol [Coreg] 25 mg Tablet 25 mg PO Q12H RF: 0 sennosides [Senokot] 8.6 mg Tablet 17.2 mg PO BID PRN (Reason: Constipation) RF: 0 lamotrigine 200 mg Tablet 400 mg PO DAILY RF: 0 clonazepam 0.5 mg Tablet 0.5 mg PO BID RF: 0 acetaminophen 650 mg Tablet Extended Release 650 mg PO Q6 PRN (Reason: pain/temp) RF: 0 calcium carbonate [Tums] 200 mg calcium (500 mg) Tablet,Chewable 2 tab PO Q6H PRN (Reason: heartburn/gi upset) RF: 0 carbidopa-levodopa 10-100 mg Tablet 1 tab PO Q6 RF: 0 docusate sodium [Colace] 100 mg Capsule 100 mg PO BID RF: 0 hydrochlorothiazide 25 mg Tablet 25 mg PO DAILY RF: 0 lisinopril 40 mg Tablet 40 mg PO DAILY RF: 0 finasteride [Proscar] 5 mg Tablet 5 mg PO DAILY RF: 0 Xarelto 20 mg Tablet 20 mg PO DAILY RF: 0 quetiapine 25 mg tablet 25 mg PO HS RF: 0 lamotrigine 100 mg tablet 100 mg PO DAILY RF: 0 duloxetine 30 mg capsule,delayed release(DR/EC) 30 mg PO DAILY RF: 0 Vimpat 100 mg tablet 100 mg PO DAILY RF: 0 gabapentin 600 mg tablet 600 mg PO TID RF: 0 Referrals Referrals: [facility] [Primary Care Provider] - Discharge Problem: Altered mental status Qualifiers: Altered mental status type: unspecified Qualified Code(s): R41.82 - Altered mental status, unspecified The scribe's documentation has been prepared under my direction and personally reviewed by me in its entirety. I confirm that the note above accurately reflects all work, treatment, procedures, and medical decision making performed by me.
--- NOTE | 2019-03-24 14:31 | XRay Report ---
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 No ac [place] fracture, dislocation, avascular necrosis or opaque foreign body. Arterial calcifications noted. IMPRESSION: No acute fracture or dislocation. The above report was generated using voice recognition software. It may contain grammatical, syntax o r spelling errors. Electronically signed by: Isaac Mckinney M.D. 03/24/2019 2:30 PM
--- NOTE | 2019-03-24 14:32 | XRay Report ---
XR chest 1V portable HISTORY: Altered mental status. COMPARISON: Chest 01/08/2017. FINDINGS: Old, healed left sided rib fractures. There is mild central pulmonary vascular congestion w ithout overt edema. The heart remains mildly enlarged. No pleural effusions. No pneumothorax. No foca l lung consolidations to suggest pneumonia. IMPRESSION: Cardiomegaly with mild central pulmonary vascular congestion. ACT 112: Negative or not required by law. Electronically signed by: Brenton Johnson M.D. 03/24/2019 2:31 PM
[2019-03-24] MEDS ORDERED: HALOPERIDOL LACTATE 5 MG/ML 1 ML VIAL IV STA (15:59)
[2019-03-24] MEDS ORDERED: ONDANSETRON INJ 2 MG/ML 2 ML VIAL IV PRN (16:03)
[2019-03-24] MEDS ORDERED: CALCIUM CARBONATE 500 MG CHEWABLE TAB PO PRN (16:03)
[2019-03-24] MEDS ORDERED: SENNA 8.6 MG TAB PO PRN (16:03)
[2019-03-24] MEDS ORDERED: ACETAMINOPHEN 325 MG TAB PO PRN (16:03)
[2019-03-24] MEDS: LORazepam 0.5 MG/1 ML VIAL IV PRN ×2 (16:37→21:30)
[2019-03-24] MEDS ORDERED: MoRPHine SULFATE 2 MG/ML CARP IV PRN (17:00)
[2019-03-24] MEDS ORDERED: KETOROLAC TROMETHAMINE 15 MG/ML VIAL IV PRN (17:00)
[2019-03-24] MEDS ORDERED: DiphenhydrAMINE HCL 50 MG/ML VIAL IV PRN (17:02)
[2019-03-24] MEDS: CARBIDOPA/LEVODOP 10/100MG TAB PO SCH ×2 (18:21→21:24)
[2019-03-24] MEDS: SODIUM CHLOR 0.45% + 20MEQ KCL 20 MEQ/1,000 ML BAG IV SCH (18:25)
--- NOTE | 2019-03-24 19:40 | History & Physical Report ---
Date of Service March 24, 2019 Assessment & Plan (1) Dysarthria: Obs to tele Appears to have been transient CT head shows no bleeding Will attempt MRI brain in am (however I anticipate patient will not be cooperative) (2) Agitation: PRN Ativan and sitter did help to calm patient when he got to floor. I had ordered a dose of Haldol, but nursing did not need to use given the measures above. If he becomes combative and agitated overnight I would not hesitate to use Haldol. (3) Periorbital hematoma of left eye: (4) Mood disorder: Continue lamotrigine, duloxetine, clonazepam, and quetiapine. (5) Seizure: Continue Vimpat I will order EEG (perhaps patient was post-ictal from unwitnessed seizure) (6) Hypertension: Continue HCTZ, lisinopril, and carvedilol. I hesitate controlling any further overnight in event he had a CVA/TIA (7) History of CVA (cerebrovascular accident): Continue Xarelto History of Present Illness 63 y/o male presented to the ED with a 1 hour history of dysarthria (described by nursing as garbled speech) and agitation. He is known to have frequent falls. He has fallen x2 over past 3 days. Patient declines having headache, chest pain, SOB, cough or F/C. He is difficult to keep focused. He keeps rep eating that he wants [employer] in loud voice. It seems by the time I saw the patient that dysarthria had resolved. Although this is the first time seeing the patient and I have no baseline in which to compare. Primary Care Provider: [facility] Allergies Allergy/AdvReac Type Severity Reaction Status Date / Time hydromorphone Allergy Unknown Unknown Verified 03/24/19 12:17 Penicillins Allergy Unknown UNKNOWN Unverified 03/24/19 12:17 aspirin AdvReac Unknown NAUSEA Unverified 03/24/19 12:17 Home Medications Home Medications Medication Instructions Recorded Confirmed Type acetaminophen 650 mg PO Q6 PRN 02/26/18 03/24/19 History calcium carbonate [Tums] 2 tab PO Q6H PRN 02/26/18 03/24/19 History carbidopa-levodopa 1 tab PO Q6 02/26/18 03/24/19 History carvedilol [Coreg] 25 mg PO Q12H 02/26/18 03/24/19 History clonazepam 0.5 mg PO BID 02/26/18 03/24/19 History docusate sodium [Colace] 100 mg PO BID 02/26/18 03/24/19 History finasteride [Proscar] 5 mg PO DAILY 02/26/18 03/24/19 History hydrochlorothiazide 25 mg PO DAILY 02/26/18 03/24/19 History lamotrigine 400 mg PO DAILY 02/26/18 03/24/19 History lisinopril 40 mg PO DAILY 02/26/18 03/24/19 History rivaroxaban [Xarelto] 20 mg PO DAILY 02/26/18 03/24/19 History sennosides [Senokot] 17.2 mg PO BID PRN 02/26/18 03/24/19 History duloxetine 30 mg PO DAILY 03/20/19 03/24/19 History lacosamide [Vimpat] 100 mg PO DAILY 03/20/19 03/24/19 History lamotrigine 100 mg PO DAILY 03/20/19 03/24/19 History quetiapine 25 mg PO HS 03/20/19 03/24/19 History gabapentin 600 mg PO TID 03/24/19 03/24/19 History Past Med/Surg History Medical History History of CVA (cerebrovascular accident) (Resolved) Hyperlipemia (Chronic) Hypertension (Chronic) Mood disorder (Chronic) Seizure (Chronic) Surgical History No pertinent past surgical history Family History Other No pertinent family history Social History Preferred Language: Ghanaian Communication Ability: Unable Communication Ability Comment: aphasic Medical Attendant Required: No Beliefs That Will Affect Care: None Current Living Situation: Intermediate Current Living Situation Comment: [facility] Other Information That Helps Us Care for You: No Feels Safe at Home: Yes Safety Concerns: Feels Safe At This Time Smoking Status: Unknown if ever smoked Hx Alcohol Use: No Hx Substance Use: No Review of Systems Review of Systems: All systems reviewed & are unremarkable except as noted in HPI & below Physical Exam Physical Exam: General- adult male, agitated and vocalizing loudly. Head- atraumatic Eyes- PERRL, EOMI, anicteric ENT- oropharynx clear Neck- supple, no JVD, no adenopathy, no thyromegaly. Lungs- clear to auscultation and percussion Heart- regular rhythm; no murmur, no gallop, no rub appreciated Abdomen- normal bowel sounds, soft, nontender. Extremities- no pretibial edema, no calf tenderness; peripheral pulses intact. Right foot brace. Neuro- alert, oriented x 3; PERRL, EOMI; no facial palsy; Speech appears to have improved from ED physician exam. 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 Skin- warm & dry. Multiple bruises to b/l agustín-orbital region, abdomen, upper chest, left arm. Results & Data Vital Signs (Past 12 Hours) Vital Signs Temp Pulse Pulse Resp BP BP Pulse Ox 03/24/19 18:59 36.6 C 61 18 172/92 H 94 03/24/19 17:39 59 L 03/24/19 17:00 36.7 C 63 18 149/90 H 94 03/24/19 13:02 58 L 20 129/84 97 03/24/19 11:40 36.7 C 64 22 148/99 H 95 Laboratory Results Laboratory Results WBC 7.03 K/uL (4.8-10.8) 03/24/19 11:31 RBC 4.58 M/uL (4.7-6.1) L 03/24/19 11:31 Hgb 15.0 g/dL (14.0-18.0) 03/24/19 11:31 Hct 44.5 % (42-52) 03/24/19 11:31 MCV 97.2 fL (80-100) 03/24/19 11:31 MCH 32.8 pg (25-34) 03/24/19 11:31 MCHC 33.7 g/dL (32-36) 03/24/19 11:31 RDW Std Deviation 51.9 fL (36.4-46.3) H 03/24/19 11:31 RDW Coeff of Rod 14.6 % (11.5-14.5) H 03/24/19 11:31 Plt Count 273 K/uL (130-400) 03/24/19 11:31 MPV 10.4 fL (7.4-10.4) 03/24/19 11:31 Immature Gran % (Auto) 0.1 % 03/24/19 11:31 Neut % (Auto) 57.8 % 03/24/19 11:31 Lymph % (Auto) 20.3 % 03/24/19 11:31 [place] % (Auto) 11.5 % 03/24/19 11:31 Eos % (Auto) 9.7 % 03/24/19 11:31 Baso % (Auto) 0.6 % 03/24/19 11:31 Immature Gran # (Auto) 0.01 K/uL (0.00-0.02) 03/24/19 11:31 Neut # (Auto) 4.06 K/uL (1.4-6.5) 03/24/19 11:31 Lymph # (Auto) 1.43 K/uL (1.2-3.4) 03/24/19 11:31 [place] # (Auto) 0.81 K/uL (0.11-0.59) H 03/24/19 11:31 Eos # (Auto) 0.68 K/uL (0-0.5) H 03/24/19 11:31 Baso # (Auto) 0.04 K/uL (0-0.2) 03/24/19 11:31 PT 11.4 Seconds (9.0-12.0) 03/24/19 11:31 INR 1.1 (0.9-1.1) 03/24/19 11:31 Sodium 139 mmol/L (136-145) 03/24/19 11:31 Potassium 3.2 mmol/L (3.5-5.1) L 03/24/19 11:31 Chloride 102 mmol/L (98-107) 03/24/19 11:31 Carbon Dioxide 31 mmol/L (21-32) 03/24/19 11:31 Anion Gap 7.0 (3-11) 03/24/19 11:31 BUN 18 mg/dl (7-18) 03/24/19 11:31 Creatinine 1.56 mg/dl (0.6-1.4) H 03/24/19 11:31 Est Cr Clr Drug Dosing 50.4 ml/min 03/24/19 11:31 Est GFR ( Amer) 53.2 03/24/19 11:31 Est GFR (Non-Af Amer) 45.9 03/24/19 11:31 BUN/Creatinine Ratio 11.5 (10-20) 03/24/19 11:31 Glucose 118 mg/dl (70-99) H 03/24/19 11:31 Lactate 1.6 mmol/L (0.4-2.0) 03/24/19 12:16 Calcium 9.4 mg/dl (8.5-10.1) 03/24/19 11:31 Total Bilirubin 0.3 mg/dl (0.2-1) 03/24/19 11:31 AST 27 U/L (15-37) 03/24/19 11:31 ALT 25 U/L (12-78) 03/24/19 11:31 Alkaline Phosphatase 128 U/L (45-117) H 03/24/19 11:31 Total Creatine Kinase 235 U/L (39-308) 03/24/19 11:31 Troponin I < 0.015 ng/ml (0-0.045) 03/24/19 11:31 Total Protein 8.1 gm/dl (6.4-8.2) 03/24/19 11:31 Albumin 3.9 gm/dl (3.4-5.0) 03/24/19 11:31 Globulin 4.2 gm/dl (2.5-4.0) H 03/24/19 11:31 Albumin/Globulin Ratio 0.9 (0.9-2) 03/24/19 11:31 Specimen Hemolysis 03/24/19 11:31 Ethyl Alcohol mg/dL < 3.0 mg/dl (0-3) 03/24/19 12:16 Diagnostic Findings [facility], [place] [phone] CT Scan Report Patient: RAMONEEDWARDAdmit Date: 03/24/19 MR#: [id number]: [address] Acct ID:[id number]: [facility] Date: [address] [place] [address] Zip: [place] [address] Age: 63Location: ED Sex: M Room/Bed: Att Phy:Diagnosis: fall/ confused, head pain Heather Phy: [facility], [facility] Date: 03/24/19 Fam Phy:Interpreting Phy: Huang Mckinney Admit Phy: Ordering Phy: Jayme Chong D.O. cc: ~ CT head/brain wo con CLINICAL HISTORY: 63 years-old Male with ams. Acutely altered mental status TECHNIQUE: Multiple axial CT images of the head were obtained without contrast. A dose lowering technique was utilized adhering to the principles of ALARA. COMPARISON: Head CT 04/29/2018. FINDINGS: No acute intracranial hemorrhage, midline shift, intracranial mass, hydrocephalus, territorial ischemia or abnormal extra-axial collection. Age- related involutional changes. Encephalomalacia about the right frontal and left parietal lobes compatible with areas of remote infarction. Ex vacuo ventriculomegaly about the atria left lateral ventricle. Wallerian degeneration of the left midbrain and thalamus. The calvarium is intact. Periapical cyst formation about the maxilla. Severe right maxillary and mild left maxillary sinus disease. Moderate mucosal thickening of the ethmoid sinuses. Soft tissues and orbits are unremarkable. IMPRESSION: 1. No acute intracranial abnormality. 2. Chronic findings as above. The above report was generated using voice recognition software. It may contain grammatical, syntax or spelling errors. Electronically signed by: Isaac Mckinney M.D. 03/24/2019 12:41 PM Dictated: 03/24/19 1238 Transcribed: 03/24/19 12[address] [place], [place] [phone] XRay Report Patient: HALINA PACKWARDAdmit Date: 03/24/19 MR#: [id number]: [address] Acct ID:[id number]: JENNIFER Date: 1955[facility] Zip: [place] [address] Age: 63Location: ED Sex: M Room/Bed: Att Phy:Diagnosis: fall/ confused, head pain Heather Phy: [facility], [facility] Date: 03/24/19 Fam Phy:Interpreting Phy: Huang Mckinney Admit Phy: Ordering Phy: Jayme Chong D.O. cc: ~ XR femur RT 2V routine HISTORY: 63 years-old Male pain acute right hip pain without reported trauma COMPARISON: Right femur radiographs 02/26/2018 TECHNIQUE: 2 views of the right femur FINDINGS: Mild osteoarthritis of the femoral acetabular joint with mild degenerative changes of the knee. No acute fracture, dislocation, avascular necrosis or opaque foreign body. Arterial calcifications noted. IMPRESSION: No acute fracture or dislocation. The above report was generated using voice recognition software. It may contain grammatical, syntax or spelling errors. Electronically signed by: Isaac Mckinney M.D. 03/24/2019 2:30 PM Dictated: 03/24/19 1429 Transcribed: 03/24/19 142 [place], [place] [phone] CT Scan Report Patient: BISHOP PACKAdmit Date: 03/24/19 MR#: [id number]: [address] Acct ID:[id number]: FABLUISITO Date: [address] [place] [address] Zip: [place] [address] Age: 63Location: ED Sex: M Room/Bed: Att Phy:Diagnosis: fall/ confused, head pain Heather [facility] Fam Phy:Interpreting Phy: Kelby Partida MD Admit Phy: Ordering Phy: Jayme Chong D.O. cc: ~ CT SCAN OF THE ABDOMEN AND PELVIS WITHOUT IV CONTRAST CLINICAL HISTORY: Change in mental status. Generalized abdominal pain. COMPARISON STUDY: No priors. TECHNIQUE: CT scan of the abdomen and pelvis is performed from the lung bases to the proximal femora. Images are reviewed in the axial, sagittal, and coronal planes. IV contrast was not administered for this examination as per the referring clinician. Note that the examination is suboptimal without oral and IV contrast. A dose lowering technique was utilized adhering to the principles of ALARA. The examination is degraded by motion artifact, as well as by streak artifact from the arms which could not be elevated above the abdomen. CT DOSE: 1447.66 mGy.cm FINDINGS: Lung bases: The heart is enlarged and without pericardial effusion. There are coronary artery calcifications. Gynecomastia is noted. The lung bases are clear noting dependent atelectasis. There is a small hiatal hernia. Liver: Evaluation of the liver is degraded by streak artifact. The unenhanced liver is normal in size, contour, and attenuation. There is no intrahepatic biliary ductal dilatation. Gallbladder: Unremarkable. Spleen: Normal in size and attenuation. Pancreas: Unremarkable. Adrenal glands: Unremarkable. Kidneys: The unenhanced kidneys demonstrate cortical atrophy and are without hydronephrosis. There is a 3 mm nonobstructing left renal calculus. No right renal calculi are identified. There is no evidence of contour deforming renal mass lesion. Abdominal vasculature: There is moderate to advanced atherosclerotic calcification and mild ectasia of the abdominal aorta. An infrarenal IVC filter is in place. Bowel: There is mild colonic diverticulosis without CT evidence of acute diverticulitis. No bowel obstruction is seen. Fecal retention is noted in the colon. The appendix is not visualized. Peritoneum: There is no intraperitoneal free air or abdominal ascites. There is a large fat-containing umbilical hernia. Lymphadenopathy: None. Pelvic viscera: The prostate gland is enlarged and heterogeneous noting median lobe hypertrophy. The bladder wall is thickened and trabeculated suggesting chronic outlet obstruction. Skeletal structures: The skeletal structures are osteopenic. Mild lumbosacral spondylosis is observed. No lytic or blastic lesions are seen. IMPRESSION: 1. Suboptimal examination without oral and IV contrast. The examination is also degraded by streak and motion artifact. 2. No acute infectious or inflammatory findings are identified in the abdomen or pelvis. 3. Cardiomegaly. 4. Mild colonic diverticulosis without CT evidence of acute diverticulitis. 5. Left-sided nephrolithiasis. 6. Additional findings as above. Electronically signed by: Kelby Partida M.D. 03/24/2019 12:43 PM Dictated: 03/24/19 1236 Transcribed: 03/24/19 1236 Code Status & VTE Plan VTE Prophylaxis Plan VTE Prophylaxis will be ordered: Yes PG Care Time/CCT Total # of Minutes Spent Total Time Spent: 60 Total Time Spent with Patient: Total time spent is greater than 50% in coordination of care (as documented) at patient's floor/unit and/or counseling patient:
[2019-03-24] MEDS: clonazePAM 0.5 MG TAB PO SCH (21:23)
[2019-03-24] MEDS: DOCUSATE SODIUM 100 MG CAP PO SCH (21:24)
[2019-03-24] MEDS: GABAPENTIN 600 MG TAB PO SCH (21:24)
[2019-03-24] MEDS: carvediloL 25 MG TAB PO SCH (21:25)
[2019-03-24] MEDS: QUETIAPINE FUMARATE 25 MG TABLET PO SCH (21:25)
--- NOTE | 2019-03-24 22:21 | Magnetic Resonance Report ---
MRI OF THE BRAIN WITHOUT CONTRAST CLINICAL HISTORY: transient dysarthria r/o lacunar CVA COMPARISON STUDY: MRI of the brain May 12, 2016. Head CT March 24, 2019. TECHNIQUE: Utilizing a 1.5 Jacqueline magnet and dedicated coil, multiplanar, multiecho imaging of the bra in was performed without IV contrast. FINDINGS: There are no foci of restricted diffusion to suggest acute infarct. No acute intracranial h emorrhage, midline shift or mass effect is present. Encephalomalacia within the right frontal lobe re presents an old infarct. Mild asymmetric dilatation of the left lateral ventricle is unchanged. An ol d left thalamic infarct is noted. The basilar cisterns are patent. There are no extra-axial collectio ns. No intracranial masses identified on this unenhanced examination. White matter T2 hyperintense fo ci suggest small vessel disease. Moderate sinus mucosal thickening is noted. There is a right maxilla ry sinus mucous retention cysts. Calvarial signal is unremarkable. Orbits are unremarkable. IMPRESSION: 1. No acute intracranial findings. 2. Old right frontal lobe and left thalamic infarcts. Electronically signed by: Rich Ching M.D. 03/24/2019 10:19 PM
[2019-03-25] MEDS: SODIUM CHLOR 0.45% + 20MEQ KCL 20 MEQ/1,000 ML BAG IV SCH ×3 (05:32→22:41)
[2019-03-25 07:18] LABS: Basophils # (auto) 0.03 K/uL (0-0.2); Basophils % (auto) 0.6 %; Eosinophils # (auto) 0.55 K/uL (0-0.5); Eosinophils % (auto) 11.5 %; Hemoglobin 12.7 g/dL (14.0-18.0); Immature Granulocytes # (auto) 0.02 K/uL (0.00-0.02); Immature Granulocytes % (auto) 0.4 %; Lymphocytes # (auto) 1.49 K/uL (1.2-3.4); Lymphocytes % (auto) 31.2 %; Mean Corpuscular Hemoglobin 31.8 pg (25-34); Mean Corpuscular Hgb Conc 33.4 g/dL (32-36); Mean Corpuscular Volume 95.2 fL (80-100); Mean Platelet Volume 10.2 fL (7.4-10.4); Monocytes # (auto) 0.49 K/uL (0.11-0.59); Monocytes % (auto) 10.3 %; Platelet Count 211 K/uL (130-400); RDW Coefficient of Variation 14.7 % (11.5-14.5); RDW Standard Deviation 51.2 fL (36.4-46.3); Red Blood Count 3.99 M/uL (4.7-6.1); White Blood Count 4.78 K/uL (4.8-10.8)
[2019-03-25] MEDS: lisinopriL 40 MG TAB PO SCH (08:52)
[2019-03-25] MEDS: carvediloL 25 MG TAB PO SCH ×2 (08:52→20:09)
[2019-03-25] MEDS: FINASTERIDE 5 MG TAB PO SCH (08:53)
[2019-03-25] MEDS: RIVAROXABAN 20 MG TAB PO SCH (08:53)
[2019-03-25] MEDS: DULOXETINE HCL 30 MG CAP PO SCH (08:53)
[2019-03-25] MEDS: lamoTRIgine 100 MG TAB PO SCH (08:53)
[2019-03-25] MEDS: DOCUSATE SODIUM 100 MG CAP PO SCH ×2 (08:54→20:08)
[2019-03-25] MEDS: CARBIDOPA/LEVODOP 10/100MG TAB PO SCH ×4 (08:54→20:08)
[2019-03-25] MEDS: GABAPENTIN 600 MG TAB PO SCH ×3 (08:54→20:07)
[2019-03-25] MEDS ORDERED: LACOSAMIDE 50 MG TABLET PO SCH (09:00)
[2019-03-25] MEDS ORDERED: lamoTRIgine 100 MG TAB PO SCH (09:00)
[2019-03-25] MEDS ORDERED: hydroCHLOROthiazide 25 MG TAB PO SCH (09:00)
[2019-03-25 09:10] LABS: BUN Creatinine Ratio 10.1 (10-20); Est GFR (African American) 63.4; Est GFR (Non-African American) 54.7
[2019-03-25] MEDS: clonazePAM 0.5 MG TAB PO SCH ×2 (11:36→20:07)
[2019-03-25] MEDS ORDERED: POTASSIUM CHLORIDE / WTR 10 MEQ/100 ML PLCT IV ONE (12:00)
--- NOTE | 2019-03-25 12:56 | Hospitalist Progress Note ---
Date of Service March 25, 2019 Assessment & Plan (1) Fall: Multiple falls over the last 7-10 days. Uncertain cause. Thus far tele w/o dysrhythmia. Echo obtained today -- normal. EEG pending. MRI brain with old strokes but no new strokes. The falls seem to be preceded by syncope? Check orthostatic BPs. Check B12 level. Does he simply fall because of chronic RLE weakness? needs PT/OT evals. Monitor overnight again. neuro consult pending. Consider outpatient 30-day event monitoring to see if dysrhythmia occurs around the time of falls. Consider carotid duplex study. (2) Syncope: see "fall" above consider carotid duplex consider 30-day event monitoring (3) Fracture of second toe, right, closed: Due to trauma. I personally performed shane-taping today. The 2nd toe was shane-taped to the 3rd toe. He will need a stiff shoe such as a post-op surgical shoe. He also has increased tone in his right leg/foot/ankle with foot drop; may benefit from an orthotic device. Consider orthotic consult. (4) Dysarthria: Present before discharge - TIA?? Seizure? Other? Resolved by time of admission; has not recurred. Neuro consult pending. No new stroke on MRI brain. (5) Agitation: I spoke with pt's sister who lives in [facility]. She reported longstanding aggressive personality traits. He gets quite upset when talking about his medical care and does not appear to have insight into his problems or his plan of care. He is on seroquel at . Consider increase in such or changing to BID dosing if needed for agitation/aggressive behavior. (6) Acute shoulder pain: Left. s/p recent fall. The shoulder is swollen/ecchymotic but he has no pain with passive ROM. monitor. (7) Periorbital hematoma of left eye: No evidence of orbital fracture or ICH on imaging of head/neck. I imaged his c-spine and no fractures were seen. (8) Mood disorder: Continue lamotrigine, duloxetine, clonazepam, and quetiapine. These are chronic meds from SNF. (9) Seizure: Continue Vimpat; should be on BID dosing; will change to such. EEG ordered to r/o seizures as cause of mental status changes, falls, dysarthria, etc. Neurology to see. (10) Hypertension: Continue lisinopril, and carvedilol but hold HCTZ in the event HCTZ is causing orthostasis. (11) History of CVA (cerebrovascular accident): Noted. Multiple old strokes seen on MRI brain but no new strokes. Takes xarelto - for prior DVT? But no h/o a.fib. (12) Hemiparesis of right dominant side: (13) Hypokalemia: PO/IV replacement given today but patient refused; apparently told nurses that if we started replacement here he would need to take this back at SNF? BMP in am. (14) History of DVT (deep vein thrombosis): Cannot confirm such. Continue xarelto (cautiously) for now given his recent falls. Will need to check with SNF med director to get more information on pt's history. updated pt's sister by phone this evening patient, in my estimation, does NOT possess capacity to make informed medical decisions on his behalf. during multiple conversations today he lacked considerable insight into his medical issues. threatened to leave AMA today and walk back to the SNF - has no clothes, he cannot walk, has fractured 2nd toe on right, etc. I signed out to the night resident physician that if patient threatened to leave AMA he cannot do so; this would cause potential peril for him. He would possibly need a 302 document if patient attempted to leave AMA. total time today about 80 minutes between multiple visits, shane-taping toe Fx, speaking w/ sister, reviewing records, etc Subjective Multiple visits to pt's bedside today. During AM rounds patient was very talkative and argumentative, stating "why am I here?" and "I'm ready to go." He reported at least 5 falls over the last 10 days. Per his recollection he would stand up and simply "black out". He would then fall. He injured his left shoulder recently and his right foot. He doesn't remember all the details of several of the falls. He has no prodromal symptoms (dizziness, etc) prior to the falls. When I asked him why he takes xarelto he states he had DVTs of his legs while living in [place] years ago. With one of the falls he indeed hit his head and neck. He has a black eye on the left. No headache. I saw the patient a 2nd time later in the afternoon after right foot x-rays showed 2nd toe fracture. While shane taping the toe he said "why can't you let me go?" I explained to him that we didn't know what was causing his falls, that we were waiting on EEG, etc. He then said "then let me sign out AMA. I'll walk back home." I reminded him he lived at [facility] and that it was snowing outside. He apparently ambulates with use of a cane at the SNF albeit on limited basis. I then told him we could not set up transportation this late in the day. After explaining the multiple reasons why d/c tonight was not possible nor safe he still said "let me go." I spoke with staff and told them that I don't believe he has capacity to make informed decisions on his own behalf given the above. Staff reported that he was possibly [place] Review of Systems Constitutional: no fever and no chills Respiratory: no cough and no dyspnea Cardiovascular: no chest pain Gastrointestinal: no abdominal pain and no nausea Neurologic: + gait abnormality and + falls Physical Exam Constitutional: + altered mental status; no acute distress and + uncooperative Eyes: ecchymoses over left eye/periorbital region ENMT: external ear and nose normal, oropharynx normal Neck: normal visual inspection; neck nontender Respiratory: normal respiratory effort, lungs clear to auscultation Cardiovascular: Rate/Rhythm: regular rate and regular rhythm Heart Sounds: normal S1 and normal S2; no murmur Vessels: posterior tibial pulses present and dorsalis pedis pulses present; no JVD Extremities: no edema Gastrointestinal (Abdomen): normal bowel sounds, soft, nontender, no hepatosplenomegaly Musculoskeletal: right 2nd toe with swelling, abrasion, mild deformity; left shoulder with ecchymoses/bruising and swelling; passive ROM of left shoulder does not elicit pain; b/l passive ROM of hips w/o pain/tenderness; b/l knees without swelling or deformity Skin: ecchymoses over left shoulder, left eye, right foot Neurologic: mild right-sided hemiparesis; foot drop right; increased tone RUE/RLE Psychiatric: Orientation: alert; + not oriented x 3 Mood: + irritable mood Thought Process: + perseveration; + thought process not clear or coherent Insight: + limited insight Results & Data Vital Signs (Past 12 Hours) Vital Signs Temp Pulse Pulse Resp BP Pulse Ox 03/25/19 11:18 36.6 C 18 L 20 114/81 90 03/25/19 07:25 57 L 03/25/19 07:23 36.6 C 46 L 18 127/79 90 03/25/19 04:00 36.7 C 61 19 131/83 92 Laboratory Results Laboratory Results - last 24 hr 03/25/19 03/25/19 06:52 06:52 WBC 4.78 L RBC 3.99 L Hgb 12.7 L Hct 38.0 L MCV 95.2 MCH 31.8 MCHC 33.4 RDW Std Deviation 51.2 H RDW Coeff of Rod 14.7 H Plt Count 211 MPV 10.2 Immature Gran % (Auto) 0.4 Neut % (Auto) 46.0 Lymph % (Auto) 31.2 [place] % (Auto) 10.3 Eos % (Auto) 11.5 Baso % (Auto) 0.6 Immature Gran # (Auto) 0.02 Neut # (Auto) 2.20 Lymph # (Auto) 1.49 [place] # (Auto) 0.49 Eos # (Auto) 0.55 H Baso # (Auto) 0.03 Sodium 140 Potassium 3.0 L Chloride 104 Carbon Dioxide 32 Anion Gap 4.0 BUN 14 Creatinine 1.35 Est Cr Clr Drug Dosing 58.0 Est GFR ( Amer) 63.4 Est GFR (Non-Af Amer) 54.7 BUN/Creatinine Ratio 10.1 Glucose 85 Calcium 8.0 L Magnesium 2.0 PG Care Time/CCT Total # of Minutes Spent Total Time Spent with Patient: Total time spent is greater than 50% in coordination of care (as documented) at patient's floor/unit and/or counseling patient: Prolonged Care Time Prolonged Care Time: Yes 80 (1) Hypertension Hypertension type: essential hypertension Qualified Code(s): I10 - Essential (primary) hypertension (2) Hemiparesis of right dominant side Hemiparesis etiology: late effect of cerebrovascular disease Cerebrovascular disease type: cerebral infarction Qualified Code(s): I69.351 - Hemiplegia and hemiparesis following cerebral infarction affecting right dominant side (3) Fracture of second toe, right, closed Encounter type: subsequent encounter Fracture healing: with routine healing Qualified Code(s): S92.501D - Displaced unspecified fracture of right lesser toe(s), subsequent encounter for fracture with routine healing (4) Syncope Syncope type: unspecified Qualified Code(s): R55 - Syncope and collapse (5) Fall Encounter type: initial encounter Qualified Code(s): W19.XXXA - Unspecified fall, initial encounter (6) Acute shoulder pain Laterality: right Qualified Code(s): M25.511 - Pain in right shoulder
[2019-03-25] MEDS: POTASSIUM CHLORIDE 20 MEQ TABCR PO ONE ×2 (13:14→13:39)
--- NOTE | 2019-03-25 14:15 | CT Scan Report ---
CT cervical spine wo con CLINICAL HISTORY: 63 years-old Male presenting with 5 falls; head/neck trauma; eval for Fx. TECHNIQUE: Multidetector CT of the cervical spine was performed without the use of intravenous contra st. IV contrast: None. One or more dose lowering techniques were used consistent with the principles of ALARA (as low as reasonably achievable), including automatic exposure control, mA or kV adjustment to individual patient size, and/or use of iterative reconstruction. COMPARISON: 02/26/2018. CT DOSE (mGy.cm): The estimated cumulative dose is 292.47 mGy.cm. 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 History near normal cervical lordosis likely due to multilevel degenerative changes. Vertebral bodies maintain normal height and alignment. Intervertebral disc height loss noted to a moderate to severe degree at C5-6 and to a slightly lesser degree at C6-7. Disc osteophyte complexes at these levels res ult in mild to moderate posterior bony spurring. Evaluation of the soft tissues of the spinal canal d o not demonstrate further effacement allowing for the sensitivity of CT. Mild degenerative changes at the atlantodental articulation. There are degrees of uncovertebral hypertrophy results in osseous ne ural foraminal narrowing at several levels. No acute fracture or subluxation. Visualized portion of t he skull base intact. Paraspinal soft tissues within normal limits. Mucosal thickening in the sphenoi d sinuses. Paraseptal emphysematous changes suggested at the lung apices. IMPRESSION: 1. No acute osseous injury of the cervical spine. 2. Multilevel degenerative changes. ACT 112: Negative or not required by law. Electronically signed by: Kevin Hill M.D. 03/25/2019 2:13 PM
--- NOTE | 2019-03-25 14:31 | XRay Report ---
XR toe RT min 2V CLINICAL HISTORY: RIGHT 2nd toe deformity; r/o Fx COMPARISON STUDY: None. FINDINGS: Slightly distracted fracture at the base of the proximal phalanx of the second toe. This de monstrates up to 2 mm of distraction. No dislocation. Soft tissue swelling at the second MTP joint. IMPRESSION: Slightly distracted fracture at the base of the proximal phalanx of the right second toe . ACT 112: Negative or not required by law. Electronically signed by: Brenton Johnson M.D. 03/25/2019 2:29 PM
[2019-03-25] MEDS: LACOSAMIDE 50 MG TABLET PO SCH (20:08)
[2019-03-25] MEDS: QUETIAPINE FUMARATE 25 MG TABLET PO SCH (20:09)
--- NOTE | 2019-03-25 20:21 | Neurology Consultation ---
Date of Consultation March 25, 2019 Assessment & Plan (1) Dysarthria: Sam Padilla is a 63 yo man w/ PMH of HTN, HLD, mood disorder and h/o multiple strokes with residual R-sided weakness and right facial droop who p/t [facility] after having 1 hour of dysarthria, followed by agitation. # Transient dysarthria: most likely TIA given his stroke risk factors but cannot rule out seizure (he reported that his LUE was shaking but denied LoC, though could not give a clear history and event was not witnessed). If just dysarthria as only symptom, could also represent stroke recrudescence from his prior insults. - would obtain A1c, LDL - would also obtain UA to r/o UTI as cause of recrudescence - would recommend increasing vimpat to bid dosing (half life is only 7-13 hrs, so once a day dosing does not make sense); could start with 50mg bid and slowly uptitrate until on 100mg bid (unclear if this was the medication that he was supposed to be weaning off?) - should follow up with neurology if he is not already doing so (in 4-6 weeks) - EEG read pending, will addend note with results - would consider starting statin pending results of lipid panel as he has had multiple strokes in the past - continue home xarelto Thank you for this interesting consult. Please text or call with questions. Dr Brito will be taking over the service tomorrow but I am happy to answer any questions that come up. (2) Periorbital hematoma of left eye: (3) Fall: (4) History of CVA (cerebrovascular accident): (5) Hemiparesis of right dominant side: History of Present Illness Attending Physician: Darci Narvaez History of Present Illness Sam Padilla is a 63 yo man w/ PMH of HTN, HLD, mood disorder and h/o multiple strokes with residual R-sided weakness and right facial droop who p/t [facility] after having 1 hour of dysarthria, followed by agitation. He reports that he had a medication change about 1-2 weeks ago where one of his seizure meds was decreased, after which he reports having an increase in falls. Prior to falls, he will be walking or standing and just find himself on the ground. He denies any palpitations, tunnel vision, aura symptoms, nausea or weakness preceding falls. He reports a brief LoC with falls but no post-ictal period. Denies tongue biting or loss of bowel/bladder with falls. At least 4 falls have occurred in the last 2 weeks. He has baseline RUE contracture and R foot drop that makes ambulation difficult for him. On examination today, he did ask about [employer], told me that he was going to leave the hospital, and did not want further workup because "it is too expensive". He denied any new numbness, tingling or weakness since the most recent event. Labs at admission were notable for WBC 7.03, Hb 15.0, Plts 273, INR 1.1, normal BMP other than K 3.2 and Cr 1.56, glucose 118, normal lactate, negative troponin, CK 235, and lamictal level 12.6. Independent review of CTH showed hypodensities in the right frontal lobe, left parietal lobe, left thalamus and left midbrain, generalized atrophy with ex vacuo dilation; radiology report adds that he also has severe right maxillary and mild left maxillary sinus disease. MRI brain shows no acute infarct, chronic infarcts in the right frontal lobe, left parietal lobe and left midbrain, prior hemorrhage in the left thalamus, and moderate SVID/generalized atrophy. TTE shows EF 60-65%, mild LVH, grade I diastolic dysfunction, no valvular abnormalities. CT A/P: "FINDINGS: Lung bases: The heart is enlarged and without pericardial effusion. There are coronary artery calcifications. Gynecomastia is noted. The lung bases are clear noting dependent atelectasis. There is a small hiatal hernia. Liver: Evaluation of the liver is degraded by streak artifact. The unenhanced liver is normal in size, contour, and attenuation. There is no intrahepatic biliary ductal dilatation. Gallbladder: Unremarkable. Spleen: Normal in size and attenuation. Pancreas: Unremarkable. Adrenal glands: Unremarkable. Kidneys: The unenhanced kidneys demonstrate cortical atrophy and are without hydronephrosis. There is a 3 mm nonobstructing left renal calculus. No right renal calculi are identified. There is no evidence of contour deforming renal mass lesion. Abdominal vasculature: There is moderate to advanced atherosclerotic calcification and mild ectasia of the abdominal aorta. An infrarenal IVC filter is in place. Bowel: There is mild colonic diverticulosis without CT evidence of acute diverticulitis. No bowel obstruction is seen. Fecal retention is noted in the colon. The appendix is not visualized. Peritoneum: There is no intraperitoneal free air or abdominal ascites. There is a large fat- containing umbilical hernia. Lymphadenopathy: None. Pelvic viscera: The pros gupta gland is enlarged and heterogeneous noting median lobe hypertrophy. The bladder wall is thickened and trabeculated suggesting chronic outlet obstruction. Skeletal structures: The skeletal structures are osteopenic. Mild lumbosacral spondylosis is observed. No lytic or blastic lesions are seen." CXR: cardiomegaly with pulmonary vascular congestion CT cervical spine: multilevel degenerative changes Allergies Allergy/AdvReac Type Severity Reaction Status Date / Time hydromorphone Allergy Unknown Unknown Verified 03/24/19 12:17 Penicillins Allergy Unknown UNKNOWN Unverified 03/24/19 12:17 aspirin AdvReac Unknown NAUSEA Unverified 03/24/19 12:17 Home Medications Home Medications Medication Instructions Recorded Confirmed Type acetaminophen 650 mg PO Q6 PRN 02/26/18 03/24/19 History calcium carbonate [Tums] 2 tab PO Q6H PRN 02/26/18 03/24/19 History carbidopa-levodopa 1 tab PO Q6 02/26/18 03/24/19 History carvedilol [Coreg] 25 mg PO Q12H 02/26/18 03/24/19 History clonazepam 0.5 mg PO BID 02/26/18 03/24/19 History docusate sodium [Colace] 100 mg PO BID 02/26/18 03/24/19 History finasteride [Proscar] 5 mg PO DAILY 02/26/18 03/24/19 History hydrochlorothiazide 25 mg PO DAILY 02/26/18 03/24/19 History lamotrigine 400 mg PO DAILY 02/26/18 03/24/19 History lisinopril 40 mg PO DAILY 02/26/18 03/24/19 History rivaroxaban [Xarelto] 20 mg PO DAILY 02/26/18 03/24/19 History sennosides [Senokot] 17.2 mg PO BID PRN 02/26/18 03/24/19 History duloxetine 30 mg PO DAILY 03/20/19 03/24/19 History lacosamide [Vimpat] 100 mg PO DAILY 03/20/19 03/24/19 History lamotrigine 100 mg PO DAILY 03/20/19 03/24/19 History quetiapine 25 mg PO HS 03/20/19 03/24/19 History gabapentin 600 mg PO TID 03/24/19 03/24/19 History Patient History Medical History History of CVA (cerebrovascular accident) (Resolved) Hyperlipemia (Chronic) Hypertension (Chronic) Mood disorder (Chronic) Seizure (Chronic) Surgical History No pertinent past surgical history Family History Other No pertinent family history Social History Preferred Language: Nepali Communication Ability: Impaired Communication Ability Comment: aphasic Termite Inspector Required: No Beliefs That Will Affect Care: None Current Living Situation: [facility] Current Living Situation Comment: [facility] Other Information That Helps Us Care for You: No Feels Safe at Home: Yes Safety Concerns: Feels Safe At This Time Smoking Status: Unknown if ever smoked Hx Alcohol Use: No Hx Substance Use: No Review of Systems Review of Systems: 14 point review of systems completed and negative except as in HPI. Physical Exam Physical Exam: General Exam: GEN: NAD, sitting in bed. CV: RRR, no peripheral edema PULM: Nonlabored respirations on room air. Neuro Exam: MS: Awake and Alert. Oriented to person, place, and date. Speech fluent and appropriate without dysarthria or paraphasic errors. Language intact including naming, comprehension, repetition. Cognition and memory grossly intact. Inattentive, tangential. No neglect. CN: Visual maldonado full. No extinction to double simultaneous stimuli. No optic disc edema on fundoscopic exam. PERRLA OU. EOMI without nystagmus. Facial sensation intact to LT. Right facial droop. Hearing intact to conversation. Uvula midline with symmetric palatal elevation. Shoulder shrug normal (weaker on the right). Tongue midline. MOTOR: Normal bulk, +spasticity in the RUE, increased tone in the RLE. + pronator drift in the RUE. LUE strength 5/5 at deltoids, biceps, triceps, wrist flexors and extensors, and hand grasp. RUE strength 4-/5 at deltoids, 4/5 biceps, 4/5 triceps, unable to evaluate wrist and hand 2/2 contracture. LLE strength 5/5 at iliopsoas, hamstrings, quadriceps, tibialis anterior, and gastrocnemius. RLE strength 5-/5 at iliopsoas, hamstrings, quadriceps, tibialis anterior, and gastrocnemius. REFLEXES: 1+ at biceps, triceps, brachioradialis, patella and absent Achilles bilaterally. Toes mute bilaterally. SENSORY: Intact to LT without extinction to double simultaneous stimuli, decreased in the RUE/RLE. Vibration and temperature intact throughout though diminished in the RUE/RLE/ COORDINATION: No dysmetria or ataxia on [id number] bilaterally. Normal Faraz in LUE. GAIT: deferred, fall risk Results & Data Vital Signs (Past 12 Hours) Vital Signs Temp Pulse Pulse Resp BP Pulse Ox 03/25/19 20:08 37.0 C 67 18 130/78 91 03/25/19 15:26 37.0 C 57 L 18 119/66 94 03/25/19 11:18 36.6 C 18 L 20 114/81 90 PG Care Time/CCT Total # of Minutes Spent Total Time Spent with Patient: Total time spent is greater than 50% in coordination of care (as documented) at patient's floor/unit and/or counseling patient: (1) Fall Encounter type: initial encounter Qualified Code(s): W19.XXXA - Unspecified fall, initial encounter (2) Hemiparesis of right dominant side Hemiparesis etiology: late effect of cerebrovascular disease Cerebrovascular disease type: cerebral infarction Qualified Code(s): I69.351 - Hemiplegia and hemiparesis following cerebral infarction affecting right dominant side
[2019-03-26 03:13] LABS: Appearance Urine Clear (Clear); Bilirubin Urine Negative (Negative); Blood Urine Negative (Negative); Color Urine Yellow; Glucose Urine UA Negative (Negative); Ketones Urine Negative (Negative); Leukocyte Esterase Urine Negative (Negative); Nitrite Urine Negative (Negative); Protein Urine Negative (Negative); Specific Gravity Urine 1.013 (1.000-1.030); Urobilinogen Urine Negative (Negative)
[2019-03-26 05:56] LABS: Hematocrit (blood only) 38.5 % (42-52); Hemoglobin 12.5 g/dL (14.0-18.0); Mean Corpuscular Hemoglobin 31.4 pg (25-34); Mean Corpuscular Hgb Conc 32.5 g/dL (32-36); Mean Corpuscular Volume 96.7 fL (80-100); Mean Platelet Volume 9.9 fL (7.4-10.4); Platelet Count 225 K/uL (130-400); RDW Coefficient of Variation 14.6 % (11.5-14.5); RDW Standard Deviation 51.7 fL (36.4-46.3); Red Blood Count 3.98 M/uL (4.7-6.1); White Blood Count 4.63 K/uL (4.8-10.8)
[2019-03-26 06:31] LABS: BUN Creatinine Ratio 10.7 (10-20); Calcium 8.2 mg/dl (8.5-10.1); Creatinine Clr Calc Pharmacy 52.2 ml/min; Est GFR (African American) 55.8; Est GFR (Non-African American) 48.2
[2019-03-26 08:38] LABS: Chol HDL Ratio 5; Cholesterol 232 mg/dl (0-200); HDL Cholesterol 45 mg/dl; LDL Cholesterol Calculated 144 mg/dl; Triglycerides 214 mg/dl (0-150); VLDL Cholesterol 43 mg/dl
[2019-03-26] MEDS: RIVAROXABAN 20 MG TAB PO SCH (09:24)
[2019-03-26] MEDS: lisinopriL 40 MG TAB PO SCH (09:24)
[2019-03-26] MEDS: FINASTERIDE 5 MG TAB PO SCH (09:25)
[2019-03-26] MEDS: GABAPENTIN 600 MG TAB PO SCH ×2 (09:25→13:15)
[2019-03-26] MEDS: CARBIDOPA/LEVODOP 10/100MG TAB PO SCH ×2 (09:25→13:15)
[2019-03-26] MEDS: lamoTRIgine 100 MG TAB PO SCH (09:25)
[2019-03-26] MEDS: LACOSAMIDE 50 MG TABLET PO SCH (09:25)
[2019-03-26] MEDS: DOCUSATE SODIUM 100 MG CAP PO SCH (09:26)
[2019-03-26] MEDS: clonazePAM 0.5 MG TAB PO SCH (09:26)
[2019-03-26] MEDS: DULOXETINE HCL 30 MG CAP PO SCH (09:26)
[2019-03-26] MEDS: carvediloL 25 MG TAB PO SCH (09:28)
--- NOTE | 2019-03-26 11:33 | Ultrasound Report ---
CAROTID ARTERY ULTRASOUND CLINICAL HISTORY: recurrent syncope COMPARISON STUDY: CTA of the neck January 11, 2017. TECHNIQUE: Real-time, grayscale, and color Doppler sonography of the carotid and vertebral arteries w as performed. Images were viewed in the transverse and longitudinal planes. FINDINGS: There is mild atherosclerotic plaque. Velocity measurements are listed below. COMMON CAROTID PEAK SYSTOLIC VELOCITY (CM/S): RIGHT 76 LEFT 64 ICA PEAK SYSTOLIC VELOCITY (CM/S): RIGHT 67 LEFT 71 Systolic ratios between the internal to common carotid arteries were normal. Antegrade flow is seen in the vertebral arteries. The external carotid arteries are patent. Blood pressure in the right arm measured 137/82. Blood pressure in the left arm measured 146/82. IMPRESSION: No evidence for a hemodynamically significant stenosis. ACT 112: Negative or not required by law. Electronically signed by: Rich Ching M.D. 03/26/2019 11:32 AM
--- NOTE | 2019-03-26 14:07 | Discharge Summary ---
Date of Service date of admission - March 24, 2019 date of discharge - March 26, 2019 Admission HPI Per Admitting Provider 63 y/o male presented to the ED with a 1 hour history of dysarthria (described by nursing as garbled speech) and agitation. He is known to have frequent fall s. He has fallen x2 over past 3 days. Patient declines having headache, chest pain, SOB, cough or F/C. He is difficult to keep focused. He keeps repeating that he wants [employer] in loud voice. It seems by the time I saw the patient that dysarthria had resolved. Although this is the first time seeing the patient and I have no baseline in which to compare. Principal Diagnosis probable TIA Discharge Exam Constitutional + altered mental status (to time; poor insight/judgement); no acute distress and + uncooperative ENMT external ear and nose normal, oropharynx normal Neck normal visual inspection; neck nontender Respiratory normal respiratory effort, lungs clear to auscultation Cardiovascular Rate/Rhythm: regular rate and regular rhythm Heart Sounds: normal S1 and normal S2; no murmur Vessels: posterior tibial pulses present and dorsalis pedis pulses present; no JVD Extremities: no edema Gastrointestinal (Abdomen) normal bowel sounds, soft, nontender, no hepatosplenomegaly Musculoskeletal right 2nd toe deformity, swelling, and ecchymoses; left shoulder with old ecchymoses Skin Trauma: + periorbital ecchymosis (LEFT) Neurologic mild right hemiparesis with increased tone and foot/ankle contracture Psychiatric Orientation: alert; + not oriented x 3 Mood: + irritable mood Thought Process: + perseveration; + thought process not clear or coherent Insight: + limited insight Discharge Data Allergies Allergy/AdvReac Type Severity Reaction Status Date / Time hydromorphone Allergy Unknown Unknown Verified 03/24/19 12:17 Penicillins Allergy Unknown UNKNOWN Unverified 03/24/19 12:17 aspirin AdvReac Unknown NAUSEA Unverified 03/24/19 12:17 Consultations [facility]rology - Mee Nino MD PT, OT, speech therapy Ordered Studies 1. CT abd pelvis 2. CT head/brain 3. MRI brain - IMPRESSION: 1. No acute intracranial findings. 2. Old right frontal lobe and left thalamic infarcts. 4. CT cervical spine - no fractures 5. US carotid doppler - no ICA stenosis. 6. echo - EF 60-65%; grade 1 diastolic dysfunction; normal valve function. 7. EEG - results pending. 8. x-rays right foot - 2nd toe fracture. Hospital Course (1) Fall: Multiple falls over the last 7-10 days prior to admission. Uncertain cause. Telemetry w/o dysrhythmia during the hospital stay. Echo normal. EEG pending but doubt strokes causing the falls. MRI brain with old strokes but no new strokes. Vitamin B12 level was normal. Carotid duplex study was normal. Does he simply fall because of chronic RLE weakness? Syncope or presyncope? Other? Seen by PT/OT - they commented that he tends to lose his balance and fall to the right side with standing. This would suggest that his right-sided hemiparesis is likely the largest culprit for his falls. He should continue to use his AFO device for his right foot/ankle. He should call for assistance any time he needs to get out of bed or up from a chair. He will likely remain a fall risk moving forward. Only recommendation at discharge is to perform a 30-day event monitor to ensure dysrhythmia is contributing to falls. (2) Syncope: see "fall" above recommend 30-day event monitoring (3) Fracture of second toe, right, closed: Due to trauma. The 2nd toe was shane-taped to the 3rd toe. He will need a stiff shoe such as a post-op surgical shoe or continued use of his AFO device to allow optimal healing. Continue every other day shane-taping for 6-8 weeks. (4) Dysarthria: Present before discharge - TIA?? Seizure? Other? Resolved by time of admission; did not recur. MRI brain w/o new stroke. Seen by neurology - felt that his presenting symptoms could have been a TIA. They recommended ongoing use of xarelto cautiously (in light of falls) for secondary prevention. (5) Agitation: I spoke with pt's sister who lives in [facility]. She reported longstanding aggressive personality traits. He gets quite upset when talking about his medical care and does not appear to have insight into his problems or his plan of care. He is on seroquel at HS. Consider increase in such or changing to BID dosing if needed for agitation/aggressive behavior at the SNF. (6) Acute shoulder pain: Left. s/p recent fall. The shoulder is swollen/ecchymotic but he has no pain with passive ROM. No obvious fracture. (7) Periorbital hematoma of left eye: No evidence of orbital fracture or ICH on imaging of head/neck. I imaged his c-spine and no fractures were seen either. xarelto resumed albeit cautiously. (8) Mood disorder: Continue lamotrigine, duloxetine, clonazepam, and quetiapine. These are chronic meds from SNF. (9) Seizure: Continue Vimpat; should be on BID dosing; will change to such (50mg BID). EEG ordered to r/o seizures as cause of mental status changes, falls, dysarthria, etc. EEG results were pending at time of discharge but suspicion for seizures as cause of symptoms was low. (10) Hypertension: Continue lisinopril and carvedilol but hold HCTZ in the event HCTZ is causing orthostasis leading to falls. (11) History of CVA (cerebrovascular accident): Noted. Multiple old strokes seen on MRI brain but no new strokes. Takes xarelto - for prior DVT? But no h/o a.fib. (12) Hemiparesis of right dominant side: (13) Hypokalemia: PO/IV replacement ordered during the stay but patient refused. At discharge his potassium level was still low and thus replacement was ordered for him upon return to SNF. Should have f/u BMP in the week after discharge to ensure stability. (14) History of DVT (deep vein thrombosis): Cannot confirm such. Continue xarelto (cautiously) for now given his recent falls. (15) Chronic kidney disease, stage 3a: Cr 1.5 at discharge. This appears to be baseline. (16) Problem behaviour: Patient had significant agitation his entire stay. There were many times when he did not display ANY insight into his health issues or the plan of care. At least based on my interactions with him during the hospitalization he appeared to not have capacity to make proper decisions on his own behalf rega rding his health. To our knowledge the patient does not have a healthcare power of deputy commonwealth's attorney. Upon return to [facility] this problem must be addressed holli. Next of kin is a sister. Total Time Total Time Spent Total Time Spent (In Minutes): 45 Total Time Includes: Examination of the Patient, Discharge Planning, Medication Reconciliation and Communication With Other Providers Discharge Plan Discharge Items Patient Disposition: Transfer Senior Living Fac Reason For Visit: DYSARTHRIA, MENTAL STATUS CHANGE Discharge Diagnosis: 1. possible TIA (transient ischemic attack) 2. dysarthria (speech changes) - likely due to #1 3. recent falls - due to chronic right sided weakness or possibly medication side effects/changes 4. change in mental status - resolved, due to #1 ? 5. right 2nd toe fracture due to recent falls Activity: As commented below Activity Comment: should use AFO for right foot at ALL TIMES Non-emergency contact: Primary Care Provider Call non-emergency contact if: you have any medication questions, your symptoms worsen, your pain is not controlled, your pain is worsening and you have a fever Follow-up/Referrals: Mee Nino MD [Physician] - (see Dr Nino in 6 weeks ) [facility] [Primary Care Provider] - (see medical laboratory technician of SNF within 48 hours) Diet: Heart Healthy Addtl Attending Provider Instructions: Patient was seen for confusion, dysarthric speech, and recent multiple falls. The confusion/speech issues quickly resolved while here. It was not certain but presenting symptoms may have been due to a TIA event (transient ischemic event). TIA is a known risk factor for future stroke (and patient has had prior strokes). Additionally, we did other tests looking for the cause (or causes) of his falls. Echo, carotid duplex study, telemetry monitoring, etc were all normal. The cause of the falls could be chronic weakness of the right arm/leg from his prior stroke vs medication side effects causing the falls vs other reasons. He has a right foot 2nd toe fracture. This will need shane taping. Recommendations - 1. potassium daily for 5 days starting 03/26/19. 2. shane taping of 2nd/3rd toes, right foot, every 1-2 days for 6-8 weeks at minimum. 3. with ambulation patient MUST wear his AFO in his shoe. NO walking in socks. He MUST wear his shoe with AFO device. 4. STOP the HCTZ (hydrochlorothiazide). 5. RECOMMEND 30-day event monitor. Please call the [facility] office to arrange. This is being done to determine if arrhythmia is contributing to falls. 6. follow-up with [facility] Neurology - Dr Nino - 6 weeks. 7. BMP and Mag level in 7 days. Results to director global intelligence. 8. start lipitor (atorvastatin) 40mg once daily on 03/26/19. TIA/stroke instructions -- Risk Factors for TIA/Stroke: You can reduce your chances of stroke by working with your medical provider to adopt a healthy lifestyle. Some specific ways to lower your chance of stroke are: * If you are a smoker, now is the time to stop smoking cigarettes * If you are diabetic, improve the control of your blood sugars * Avoid excessive amounts of alcohol * Control high blood pressure * Lose weight if you are overweight * Be sure to lead an active lifestyle * Eat a healthy diet low in salt, cholesterol and fat You should know about other risk factors for stroke that you are unable to control. These include: * Age 55 years or older * Male gender * Certain racial groups: , or / * Family History of Stroke, Mini stroke or Heart Attack * Sickle Cell Disease Follow Up: It is important for you to keep your follow up appointments with your medical provider. Who to Call and When: Medical Emergencies: Call 911 immediately if you experience any of the following warning signs and symptoms of Stroke: * Sudden numbness or weakness of the face, arm or leg, especially on one side of the body * Sudden confusion, trouble speaking or understanding * Sudden trouble seeing in one or both eyes * Sudden trouble walking, dizziness, loss of balance or coordination * Sudden severe headache with no cause Do not delay calling 911 if you experience any warning signs or symptoms of a stroke. Delay in seeking medical attention may affect what treatments can be given to you. . Pending Studies at Discharge: No Stand-Alone Forms: My [facility] Skilled Items Patient informed of condition?: Yes DNR: Yes Discharge Level of Care: Skilled Communicable Disease: No Discharge Prognosis: Stable Lines: None Urinary Catheter: No Medications and DC Order Prescriptions: New potassium chloride 20 mEq tablet extended release 20 meq PO DAILY 5 Days Qty: 5 RF: 0 lacosamide 50 mg tablet 50 mg PO BID Qty: 60 RF: 2 atorvastatin [Lipitor] 40 mg tablet 40 mg PO DAILY Qty: 30 RF: 5 Continued carvedilol [Coreg] 25 mg Tablet 25 mg PO Q12H RF: 0 sennosides [Senokot] 8.6 mg Tablet 17.2 mg PO BID PRN (Reason: Constipation) RF: 0 lamotrigine 200 mg Tablet 400 mg PO DAILY RF: 0 acetaminophen 650 mg Tablet Extended Release 650 mg PO Q6 PRN (Reason: pain/temp) RF: 0 calcium carbonate [Tums] 200 mg calcium (500 mg) Tablet,Chewable 2 tab PO Q6H PRN (Reason: heartburn/gi upset) RF: 0 carbidopa-levodopa 10-100 mg Tablet 1 tab PO Q6 RF: 0 docusate sodium [Colace] 100 mg Capsule 100 mg PO BID RF: 0 lisinopril 40 mg Tablet 40 mg PO DAILY RF: 0 finasteride [Proscar] 5 mg Tablet 5 mg PO DAILY RF: 0 Xarelto 20 mg Tablet 20 mg PO DAILY RF: 0 quetiapine 25 mg tablet 25 mg PO HS RF: 0 lamotrigine 100 mg tablet 100 mg PO DAILY RF: 0 duloxetine 30 mg capsule,delayed release(DR/EC) 30 mg PO DAILY RF: 0 gabapentin 600 mg tablet 600 mg PO TID RF: 0 clonazepam 0.5 mg Tablet 0.5 mg PO BID Qty: 60 RF: 0 Discontinued hydrochlorothiazide 25 mg Tablet 25 mg PO DAILY RF: 0 Discharge Orders: Discharge Order (Routine); Ordered 03/26/19 Ordered By: Darci Narvaez Admission Data Admit Date/Time: 03/25/19 18:26 Attending Provider: Darci Narvaez Admit Provider: Forerst Caban Primary Care Provider: [facility] Other Providers: Forrest Caban ; Mee Nino Other Interventions: Discharge Summary Assessment (RN) Last Done: 03/26/19 13:10 DC Date/Time DO NOT enter until pt leaves facility: 03/26/19 15:48
--- NOTE | 2019-04-06 17:13 | Electroencephalogram ---
EEG Procedure Note Date of Service April 06, 2019 Start / End Times Start Time: 5:53 End Time: 6:13 Referring Physician Forrest Caban History 63 yo man w/ PMH of HTN, HLD, mood disorder and h/o multiple strokes with residual R-sided weakness and right facial droop who p/t [facility] [place] after having 1 hour of dysarthria, followed by agitation. Home Medication List Home Medications Medication Instructions Recorded Confirmed Type Xarelto 20 mg PO DAILY 02/26/18 03/24/19 History acetaminophen 650 mg PO Q6 PRN 02/26/18 03/24/19 History calcium carbonate [Tums] 2 tab PO Q6H PRN 02/26/18 03/24/19 History carbidopa-levodopa 1 tab PO Q6 02/26/18 03/24/19 History carvedilol [Coreg] 25 mg PO Q12H 02/26/18 03/24/19 History docusate sodium [Colace] 100 mg PO BID 02/26/18 03/24/19 History finasteride [Proscar] 5 mg PO DAILY 02/26/18 03/24/19 History lamotrigine 400 mg PO DAILY 02/26/18 03/24/19 History lisinopril 40 mg PO DAILY 02/26/18 03/24/19 History sennosides [Senokot] 17.2 mg PO BID PRN 02/26/18 03/24/19 History duloxetine 30 mg PO DAILY 03/20/19 03/24/19 History lamotrigine 100 mg PO DAILY 03/20/19 03/24/19 History quetiapine 25 mg PO HS 03/20/19 03/24/19 History gabapentin 600 mg PO TID 03/24/19 03/24/19 History atorvastatin [Lipitor] 40 mg PO DAILY #30 tab 03/26/19 Rx clonazepam 0.5 mg PO BID #60 tab 03/26/19 Rx lacosamide 50 mg PO BID #60 tab 03/26/19 Rx Inpatient Medication List Discontinued Medications Acetaminophen (Tylenol) 650 mg PO Q4H PRN PRN Reason: mild pain or fever Stop: 04/23/19 16:02 Last Admin: 03/25/19 22:23 Dose: 650 mg Documented by: [id number] Carbidopa/Levodopa (Sinement 10/100mg) 1 tab PO QID MANASA Stop: 04/23/19 17:59 Last Admin: 03/26/19 13:15 Dose: 1 tab Documented by: [id number] Admin: 03/26/19 09:25 Dose: 1 tab Documented by: [id number] Admin: 03/25/19 20:08 Dose: 1 tab Documented by: [id number] Admin: 03/25/19 16:37 Dose: 1 tab Documented by: [id number] Admin: 03/25/19 14:43 Dose: 1 tab Documented by: [id number] Admin: 03/25/19 08:54 Dose: 1 tab Documented by: [id number] Admin: 03/24/19 21:24 Dose: 1 tab Documented by: [id number] Admin: 03/24/19 18:21 Dose: 1 tab Documented by: [id number] Carvedilol (Coreg) 25 mg PO BID MANASA Stop: 04/23/19 20:59 Last Admin: 03/26/19 09:28 Dose: 25 mg Documented by: [id number] Admin: 03/25/19 20:09 Dose: 25 mg Documented by: [id number] Admin: 03/25/19 08:52 Dose: 25 mg Documented by: [id number] Admin: 03/24/19 21:25 Dose: 25 mg Documented by: [id number] Clonazepam (Klonopin) 0.5 mg PO BID MANASA Stop: 04/23/19 20:59 Last Admin: 03/26/19 09:26 Dose: Not Given Documented by: [id number] Admin: 03/25/19 20:07 Dose: 0.5 mg Documented by: [id number] Admin: 03/25/19 11:36 Dose: 0.5 mg Documented by: [id number] Admin: 03/24/19 21:23 Dose: 0.5 mg Documented by: [id number] Docusate Sodium (Colace) 100 mg PO BID MANASA Stop: 04/23/19 20:59 Last Admin: 03/26/19 09:26 Dose: 100 mg Documented by: [id number] Admin: 03/25/19 20:08 Dose: 100 mg Documented by: [id number] Admin: 03/25/19 08:54 Dose: 100 mg Documented by: [id number] Admin: 03/24/19 21:24 Dose: 100 mg Documented by: [id number] Duloxetine HCl (Cymbalta) 30 mg PO DAILY MANASA Stop: 04/24/19 08:59 Last Admin: 03/26/19 09:26 Dose: 30 mg Documented by: [id number] Admin: 03/25/19 08:53 Dose: 30 mg Documented by: [id number] Finasteride (Proscar) 5 mg PO DAILY MANASA Stop: 04/24/19 08:59 Last Admin: 03/26/19 09:25 Dose: 5 mg Documented by: [id number] Admin: 03/25/19 08:53 Dose: 5 mg Documented by: [id number] Gabapentin (Neurontin) 600 mg PO TID MANASA Stop: 04/23/19 20:59 Last Admin: 03/26/19 13:15 Dose: 600 mg Documented by: [id number] Admin: 03/26/19 09:25 Dose: 600 mg Documented by: [id number] Admin: 03/25/19 20:07 Dose: 600 mg Documented by: [id number] Admin: 03/25/19 13:53 Dose: 600 mg Documented by: [id number] Admin: 03/25/19 08:54 Dose: 600 mg Documented by: [id number] Admin: 03/24/19 21:24 Dose: 600 mg Documented by: [id number] Haloperidol Lactate (Haldol) 5 mg IV NOW STA Stop: 03/24/19 16:00 Last Admin: 03/24/19 17:12 Dose: Not Given Documented by: [id number] Hydrochlorothiazide (Hctz) 25 mg PO DAILY MANASA Stop: 04/24/19 08:59 Last Admin: 03/25/19 08:53 Dose: 25 mg Documented by: [id number] Sodium Chloride (Nss) 500 mls @ 999 mls/hr IV .Q31M MANASA Stop: 03/24/19 12:30 Last Infusion: 03/24/19 14:07 Dose: 0 mls/hr Documented by: [id number] Admin: 03/24/19 12:33 Dose: 999 mls/hr Documented by: [id number] Lorazepam (Ativan) 1 mg in 2 mls @ 2 mls/min IV NOW STA Stop: 03/24/19 13:08 Last Admin: 03/24/19 13:21 Dose: 2 mls/min Documented by: [id number] Lorazepam (Ativan) 0.5 mg in 1 mls @ 1 mls/min IV Q4H PRN PRN Reason: Agitation Stop: 04/23/19 14:28 Last Admin: 03/24/19 21:30 Dose: 1 mls/min Documented by: [id number] Admin: 03/24/19 16:37 Dose: 1 mls/min Documented by: [id number] Potassium Chloride/Sodium Chloride (1/2 Nss + 20meq Kcl 1000ml) 20 meq in 1,000 mls @ 100 mls/hr IV .Q10H MANASA Stop: 04/23/19 16:02 Last Admin: 03/25/19 22:41 Dose: Not Given Documented by: [id number] Infusion: 03/25/19 22:40 Dose: 0 mls/hr Documented by: [id number] Admin: 03/25/19 13:15 Dose: 100 mls/hr Documented by: [id number] Infusion: 03/25/19 13:15 Dose: 100 mls/hr Documented by: [id number] Admin: 03/25/19 05:32 Dose: 100 mls/hr Documented by: [id number] Infusion: 03/25/19 05:20 Dose: 100 mls/hr Documented by: [id number] Infusion: 03/24/19 22:21 Dose: 100 mls/hr Documented by: [id number] Infusion: 03/24/19 21:27 Dose: 0 mls/hr Documented by: [id number] Admin: 03/24/19 18:25 Dose: 100 mls/hr Documented by: [id number] Potassium Chloride (K Gio / Wtr) 10 meq in 100 mls @ 100 mls/hr IV ONE ONE Stop: 03/25/19 12:59 Last Infusion: 03/25/19 14:44 Dose: 100 mls/hr Documented by: [id number] Infusion: 03/25/19 13:37 Dose: 100 mls/hr Documented by: [id number] Admin: 03/25/19 13:14 Dose: 100 mls/hr Documented by: [id number] Lacosamide (Vimpat) 100 mg PO DAILY MANASA Stop: 04/24/19 08:59 Last Admin: 03/25/19 11:36 Dose: 100 mg Documented by: [id number] Lacosamide (Vimpat) 100 mg PO BID MANASA Stop: 04/24/19 20:59 Last Admin: 03/26/19 09:25 Dose: 100 mg Documented by: [id number] Admin: 03/25/19 20:08 Dose: 100 mg Documented by: [id number] Lamotrigine (Lamictal) 500 mg PO DAILY [facility] Stop: 04/24/19 08:59 Last Admin: 03/26/19 09:25 Dose: 500 mg Documented by: [id number] Admin: 03/25/19 08:53 Dose: 500 mg Documented by: [id number] Lisinopril (Zestril) 40 mg PO DAILY [facility] Stop: 04/24/19 08:59 Last Admin: 03/26/19 09:24 Dose: 40 mg Documented by: [id number] Admin: 03/25/19 08:52 Dose: 40 mg Documented by: [id number] Morphine Sulfate (Morphine Sulfate) 2 mg IV Q3H PRN PRN Reason: Severe Pain Stop: 04/07/19 16:59 Last Admin: 03/24/19 18:22 Dose: 2 mg Documented by: [id number] Potassium Chloride (Klor-Con M20) 40 meq PO ONE ONE Stop: 03/25/19 12:01 Last Admin: 03/25/19 13:39 Dose: Not Given Documented by: [id number] Quetiapine Fumarate (Seroquel) 25 mg PO HS [facility] Stop: 04/23/19 20:59 Last Admin: 03/25/19 20:09 Dose: 25 mg Documented by: [id number] Admin: 03/24/19 21:25 Dose: 25 mg Documented by: [id number] Rivaroxaban (Xarelto) 20 mg PO DAILY [facility] Stop: 04/24/19 08:59 Last Admin: 03/26/19 09:24 Dose: 20 mg Documented by: [id number] Admin: 03/25/19 08:53 Dose: 20 mg Documented by: [id number] Description This is a 21 electrode EEG with a single channel dedicated to limited EKG. The electrodes were placed in accordance with the International 10-20 system. History: 63 yo man w/ PMH of HTN, HLD, mood disorder and h/o multiple strokes with residual R-sided weakness and right facial droop who p/t [facility] [place] after having 1 hour of dysarthria, followed by agitation. Rx: clonazepam 0.5mg bid, gabapentin 600mg tid, lamotrigine 500mg daily, lacosamide 50mg bid, duloxetine 30mg daily, quetiapine 25mg qhs Start/Stop: 5:53/6:13 Attending reading: Mee Nino EEG Description: EEG background: Background showed asymmetric low voltage in the right hemisphere (maximal right frontotemporal region) with alpha rhythm intermixed with rare theta slowing with normal voltage noted in the left hemisphere with persistent theta slowing (maximal left temporoparietal region around T5). A very brief poorly formed 7-8 Hz posterior dominant rhythm was observed. The EEG is continuous. There is variability and reactivity present. Activation and reactivity: Photic stimulation performed without any abnormalities noted. No photic driving observed. Hyperventilation was not performed as patient was unable to follow commands. Sleep: Patient was drowsy but did not enter higher levels of sleep. Epileptiform discharges: No epileptiform discharges were observed however there was frequent muscle artifact/artifact in general that obscured reading. Rhythmic and periodic patterns: None Seizures: None Impression: This was an abnormal EEG given asymmetric voltages (right > left) consistent with known underlying pathology (prior large right frontotemporal encephalomalacia) and left focal slowing maximal in the left temporal lobe (c/w known encephalomalacia from prior thalamic ICH). No seizures or epileptiform discharges were seen though reading was obscured by significant muscle artifact.
== END 2019-03-26 15:48 | DRG 69 ==
LOC: ED 11:22 → 2N 11:22 → SUATTDRO 14:29 → 2N 15:42